=== PATIENT | male | born 1940 | race Caucasian/White ===

== ENCOUNTER → 2020-01-03 15:01 | Outpatient (BNVA) | payer MEDICARE, SELFPAY | PROVIDERS: PCP Internal Medicine; Referring Provider Internal Medicine; Visit Provider Hospitalist | DX: J44.9 Chronic obstructive pulmonary disease, unspecified (principal); J96.10 Chronic respiratory failure, unspecified whether with hypoxia or hypercapnia; Z99.81 Dependence on supplemental oxygen; M54.9 Dorsalgia, unspecified | CPT/HCPCS: 99212 ==

== ENCOUNTER → 2020-07-01 15:45 | Outpatient (BNVA) | payer MEDICARE, SELFPAY | PROVIDERS: PCP Internal Medicine; Visit Provider Hospitalist | DX: R00.1 Bradycardia, unspecified (principal); J96.11 Chronic respiratory failure with hypoxia; J96.12 Chronic respiratory failure with hypercapnia; J47.9 Bronchiectasis, uncomplicated; J41.1 Mucopurulent chronic bronchitis | CPT/HCPCS: 99212 ==

== ENCOUNTER → 2020-12-23 15:31 | Outpatient (BNVA) | payer MEDICARE, SELFPAY | PROVIDERS: PCP Internal Medicine; Visit Provider Hospitalist | DX: J96.11 Chronic respiratory failure with hypoxia (principal); J96.12 Chronic respiratory failure with hypercapnia; J47.9 Bronchiectasis, uncomplicated; J41.1 Mucopurulent chronic bronchitis; J38.7 Other diseases of larynx; R00.1 Bradycardia, unspecified | CPT/HCPCS: 99212 ==

== ENCOUNTER 2021-01-23 13:25 | Outpatient (REF) | payer MEDICARE, SELFPAY ==
[2021-01-23 14:06] LABS: ABG Refer to POC result
[2021-01-23 14:31] LABS: ABG Base Excess 8.9 mmol/L; ABG HCO3 35 mmol/L (22-26); ABG pCO2 54 mmHg (32-45); ABG pCO2 TC 54 mmHg (32-45); ABG pH 7.41 (7.35-7.45); ABG pO2 82 mmHg (83-108); ABG pO2 TC 80 (83-108)
[2021-01-23 14:32] LABS: ABG pH TC 7.42 (7.35-7.45)
--- NOTE | 2021-01-23 17:09 | PFT_ITS ---
Forced vital capacity FEV1, [id number], and MVV are all markedly decreased. Postbronchodilator therapy, there is no significant change. Total lung capacity, normal residual volume is markedly increased. Diffusion capacity is markedly decreased. CONCLUSION: Very severe obstructive airway disorder. There is evidence of air trapping. No response to bronchodilator therapy. Clinical correlation recommended. MD ABRAN Spivey/LOLY / [id number]
== END 2021-01-23 13:26 | disposition home or self-care (01) ==
LOC: HO.RESP 13:25
PROVIDERS: PCP Internal Medicine; Visit Provider Hospitalist
DX: J96.11 Chronic respiratory failure with hypoxia (principal); J96.12 Chronic respiratory failure with hypercapnia
CPT/HCPCS: 82803; 94060; 94727; 94729

== ENCOUNTER 2021-01-30 14:49 | Outpatient (REF) | payer MEDICARE, SELFPAY ==
--- NOTE | ~2021-01-30 | XR_ITS ---
EXAMINATION: XR CHEST CLINICAL INFORMATION: Chronic respiratory failure with hypoxia. COMPARISON: None TECHNIQUE: 2 views of the chest were obtained. FINDINGS: The lungs are well-expanded with patchy opacity seen in left lung base likely pleural thickening or effusion. Minimal blunting of right CP angle with the right middle lobe atelectasis seen. The upper lungs are clear. Heart size and pulmonary vascularity is normal. No gross bony abnormality seen. XR/XR chest 2V IMPRESSION: Left pleural effusion with underlying atelectasis. There is minimal right pleural effusion. Right middle lobe atelectasis. Rest of the lungs are clear.
== END 2021-01-30 14:50 | disposition home or self-care (01) ==
LOC: HO.XRAY 14:49
PROVIDERS: PCP Internal Medicine; Visit Provider Hospitalist
DX: J96.11 Chronic respiratory failure with hypoxia (principal); J96.12 Chronic respiratory failure with hypercapnia; J47.9 Bronchiectasis, uncomplicated; J41.1 Mucopurulent chronic bronchitis; J38.7 Other diseases of larynx; R00.1 Bradycardia, unspecified; G25.81 Restless legs syndrome
CPT/HCPCS: 71046; 99212

== ENCOUNTER 2021-02-23 15:26 | Outpatient (REF) | payer MEDICARE, SELFPAY ==
[2021-02-23 17:04] LABS: Iron 68 mcg/dL (45-160); Percent Iron Saturation 19 % (15-50); Total Iron Binding Capacity 358 mcg/dL (228-428); Unsaturated Iron Binding 290 ug/dL
== END 2021-02-23 15:27 | disposition home or self-care (01) ==
LOC: HO.LAB 15:26
PROVIDERS: PCP Internal Medicine; Visit Provider Hospitalist
DX: J44.9 Chronic obstructive pulmonary disease, unspecified (principal); J96.10 Chronic respiratory failure, unspecified whether with hypoxia or hypercapnia; R00.1 Bradycardia, unspecified
CPT/HCPCS: 36415; 83540; 99212

== ENCOUNTER → 2021-05-01 15:43 | Outpatient (BNVA) | payer MEDICARE, SELFPAY | PROVIDERS: PCP Internal Medicine; Visit Provider Hospitalist | DX: J41.1 Mucopurulent chronic bronchitis (principal); J96.11 Chronic respiratory failure with hypoxia; J96.12 Chronic respiratory failure with hypercapnia; J47.9 Bronchiectasis, uncomplicated; G25.81 Restless legs syndrome | CPT/HCPCS: 99212 ==

== ENCOUNTER 2021-07-21 12:52 | Outpatient (REF) | payer MEDICARE, SELFPAY ==
--- NOTE | ~2021-07-21 | XR_ITS ---
EXAMINATION: XR CHEST CLINICAL INFORMATION: Dyspnea. COMPARISON: 01/30/2021 and report of 01/30/2016 without imaging. TECHNIQUE: 2 views of the chest were obtained. FINDINGS: There is again noted to be postoperative change within the left hemithorax with loss of volume and pleuroparenchymal scarring at the lung base. Small effusion not excluded. No acute parenchymal disease is appreciated within the right lung. There appear to be some regions of interstitial scarring within the right lower lobe. Heart normal size. No evidence of pulmonary edema. No pneumothorax. XR/XR chest 2V IMPRESSION: Similar appearance of the chest compared to previous study of 01/30/2021 with postsurgical change within the left hemithorax.
== END 2021-07-21 12:53 | disposition home or self-care (01) ==
LOC: HO.XRAY 12:52
PROVIDERS: PCP Internal Medicine; Visit Provider Hospitalist
DX: J96.20 Acute and chronic respiratory failure, unspecified whether with hypoxia or hypercapnia (principal); J18.9 Pneumonia, unspecified organism; J44.1 Chronic obstructive pulmonary disease with (acute) exacerbation; B34.9 Viral infection, unspecified
CPT/HCPCS: 71046; 99202

== ENCOUNTER → 2021-09-09 11:39 | Outpatient (BNVA) | payer MEDICARE, SELFPAY | PROVIDERS: PCP Internal Medicine; Visit Provider Hospitalist | DX: J96.11 Chronic respiratory failure with hypoxia (principal); J96.12 Chronic respiratory failure with hypercapnia; J41.1 Mucopurulent chronic bronchitis; J47.9 Bronchiectasis, uncomplicated; R06.02 Shortness of breath; G89.4 Chronic pain syndrome; Z99.81 Dependence on supplemental oxygen | CPT/HCPCS: 99212 ==

== ENCOUNTER 2021-10-20 06:10 | Outpatient (REF) | payer MEDICARE, SELFPAY ==
--- NOTE | ~2021-10-20 | FL_ITS ---
EXAMINATION: XR FLUOROSCOPY WITH IMAGES CLINICAL INFORMATION: Spondylosis without myelopathy or radiculopathy. COMPARISON: None. TECHNIQUE: Fluoroscopy performed by Jazmin James NP. Fluoroscopy time: 0.5 minutes. Cumulative Dose: 7.61 mGy. DAP: 2.07 Gy-cm2. Images: 6. FINDINGS: There are several digital images obtained in the OR revealing needle positioned adjacent to the bilateral L5 pedicles with contrast opacifying the soft tissues. There is mild loss of L3-L4 and L5-S1 disc heights with mild spondylosis. No aggressive lytic process seen. SI joints are symmetrical and normal. FL/FL guidance in treatment room IMPRESSION: Fluoroscopy guidance was provided to referrer for pain management.
== END 2021-10-20 06:11 | disposition home or self-care (01) ==
LOC: HO.RADIR 06:10
PROVIDERS: Visit Provider Anesthesiology
DX: M47.816 Spondylosis without myelopathy or radiculopathy, lumbar region (principal); M51.36 Other intervertebral disc degeneration, lumbar region; M48.061 Spinal stenosis, lumbar region without neurogenic claudication; G89.4 Chronic pain syndrome
CPT/HCPCS: 64493; 64494

== ENCOUNTER → 2021-10-22 08:25 | Outpatient (BNVA) | payer MEDICARE, SELFPAY | PROVIDERS: PCP Internal Medicine; Visit Provider Anesthesiology | DX: M51.36 Other intervertebral disc degeneration, lumbar region (principal); M47.816 Spondylosis without myelopathy or radiculopathy, lumbar region; M48.061 Spinal stenosis, lumbar region without neurogenic claudication; G89.4 Chronic pain syndrome | CPT/HCPCS: Q3014 ==

== ENCOUNTER 2021-10-27 15:14 | Outpatient (REF) | payer MEDICARE, SELFPAY ==
[2021-10-27 15:29] LABS: MANUAL DIFF FLAG NO
[2021-10-27 15:40] LABS: Basophils Percent Auto 0.2 % (0-2); Eosinophils Absolute Auto 0.2 X10*3/uL (0.0-0.4); Eosinophils Percent Auto 2.6 % (0-4); Hematocrit 36.8 % (42.0-52.0); Hemoglobin 11.5 g/dl (14.0-18.0); Imm Gran Abs Auto 0.02 X10*3/uL (0.00-0.03); Imm Gran Pct Auto 0.4 % (0.0-0.4); Lymphocytes Absolute Auto 1.2 X10*3/uL (1.2-4.9); Lymphocytes Percent Auto 21.5 % (20-40); Mean Corpuscular HGB Conc 31.3 g/dl (31.0-36.0); Mean Corpuscular Volume 96.1 fL (80.0-98.0); Mean Platelet Volume 10.2 fL (9.4-12.4); Monocytes Absolute Auto 0.6 X10*3/uL (0.1-1.2); Monocytes Percent Auto 10.2 % (2-11); Neutrophils Absolute Auto 3.7 x10*3/uL (2.0-8.3); Neutrophils Percent Auto 65.1 % (45-73); Platelet Count 146 X10*3/uL (160-400); Red Blood Count 3.83 X10*6/uL (4.60-5.80); Red Cell Distribution Width 13.9 % (11.0-16.0); White Blood Count 5.7 X10*3/uL (4.8-10.8)
[2021-10-27 15:43] LABS: Venous Blood Gas Refer to POC result
[2021-10-27 15:44] LABS: VBG pH 7.33 (7.32-7.43)
[2021-10-27 15:45] LABS: VBG Base Excess 8.2 mmol/L; VBG HCO3 36 mmol/L (22-26); VBG pCO2 67 mmHg; VBG pO2 55 mmHg
[2021-10-27 15:51] LABS: Anion Gap 12 (12-20); Blood Urea Nitrogen 11 mg/dL (9-16); Calcium 8.4 mg/dL (8.4-10.2); Carbon Dioxide 33 mmol/L (22-29); Chloride 98 mmol/L (96-108); Estimated Glomerular Filt Rate > 60; Glucose Random 93 mg/dL (60-115); Potassium 4.5 mmol/L (3.3-5.1); Sodium 138 mmol/L (135-145)
[2021-10-27 16:11] LABS: Erythrocyte Sedimentation Rate 9 MM/HR (0-15)
== END 2021-10-27 15:15 | disposition home or self-care (01) ==
LOC: HO.LAB 15:14
PROVIDERS: PCP Internal Medicine; Visit Provider Hospitalist
DX: J96.11 Chronic respiratory failure with hypoxia (principal); J96.12 Chronic respiratory failure with hypercapnia; J41.1 Mucopurulent chronic bronchitis; G89.4 Chronic pain syndrome
CPT/HCPCS: 36415; 80048; 82803; 85025; 85652; 99212

== ENCOUNTER → 2021-12-24 15:53 | Outpatient (BNVA) | payer MEDICARE, SELFPAY | PROVIDERS: PCP Internal Medicine; Visit Provider Hospitalist | DX: J41.1 Mucopurulent chronic bronchitis (principal); J96.11 Chronic respiratory failure with hypoxia; J96.12 Chronic respiratory failure with hypercapnia; J47.9 Bronchiectasis, uncomplicated; G89.4 Chronic pain syndrome | CPT/HCPCS: 99212 ==

== ENCOUNTER → 2022-01-28 10:24 | Outpatient (BNVA) | payer MEDICARE, SELFPAY | PROVIDERS: PCP Internal Medicine; Visit Provider Anesthesiology | DX: M51.36 Other intervertebral disc degeneration, lumbar region (principal); M47.816 Spondylosis without myelopathy or radiculopathy, lumbar region; M48.061 Spinal stenosis, lumbar region without neurogenic claudication; G89.4 Chronic pain syndrome | CPT/HCPCS: Q3014 ==

== ENCOUNTER 2022-02-23 06:06 | Outpatient (REF) | payer MEDICARE, OTHER, SELFPAY ==
--- NOTE | ~2022-02-23 | FL_ITS ---
EXAMINATION: XR FLUOROSCOPY WITH IMAGES CLINICAL INFORMATION: Spondylosis without myelopathy or radiculopathy. COMPARISON: None. TECHNIQUE: Fluoroscopy Supervised By: Madalyn. Fluoroscopy Time: 0.5 minutes. Cumulative Dose: 8.61 mGy. DAP: 2.34 Gycm2. Images: 6. FINDINGS: 6 digital images obtained in OR reveal a needle positioned adjacent to the L5, L4 and L3 pedicles for pain management. Visualized vertebral heights and and disc heights are normal. The SI joints are symmetrical and normal. FL/FL guidance in treatment room IMPRESSION: Fluoroscopy guidance was provided to referrer for pain management.
== END 2022-02-23 06:07 | disposition home or self-care (01) ==
LOC: CF 06:06
PROVIDERS: Visit Provider Anesthesiology
DX: M47.816 Spondylosis without myelopathy or radiculopathy, lumbar region (principal); M51.36 Other intervertebral disc degeneration, lumbar region; M48.061 Spinal stenosis, lumbar region without neurogenic claudication; G89.4 Chronic pain syndrome
CPT/HCPCS: 64493; 64494; J1100; J2795; J3301

== ENCOUNTER → 2022-03-29 11:40 | Outpatient (BNVA) | payer MEDICARE, SELFPAY | PROVIDERS: PCP Internal Medicine; Visit Provider Anesthesiology | DX: M51.36 Other intervertebral disc degeneration, lumbar region (principal); M47.816 Spondylosis without myelopathy or radiculopathy, lumbar region; M48.061 Spinal stenosis, lumbar region without neurogenic claudication; G89.4 Chronic pain syndrome | CPT/HCPCS: 99212 ==

== ENCOUNTER → 2022-04-29 15:47 | Outpatient (BNVA) | payer MEDICARE, SELFPAY | PROVIDERS: PCP Internal Medicine; Visit Provider Hospitalist | DX: J41.1 Mucopurulent chronic bronchitis (principal); J96.11 Chronic respiratory failure with hypoxia; J96.12 Chronic respiratory failure with hypercapnia; J47.9 Bronchiectasis, uncomplicated; R06.02 Shortness of breath; G89.4 Chronic pain syndrome | CPT/HCPCS: 99212 ==

== ENCOUNTER 2022-07-16 07:16 | Day surgery (SDC) | payer MEDICARE, SELFPAY ==
--- NOTE | 2022-07-08 | ECG_ITS ---
Test Reason : preop Blood Pressure : / mmHG Vent. Rate : 057 BPM Atrial Rate : 057 BPM P-R Int : 162 ms QRS Dur : 092 ms QT Int : 416 ms P-R-T Axes : 066 -14 037 degrees QTc Int : 404 ms Sinus bradycardia Low voltage QRS Borderline ECG No previous ECGs available Referred By: Yuridia Sequeira Electronically Signed By:Anthony Vergara
[2022-07-08 13:11] VITALS: BP 118/56; PULSE 58; RESP 20; O2SAT 98; BMI 22.7
--- NOTE | 2022-07-08 13:36 | HO.ANESPROP2 ---
Documented by User: Yuridia Sequeira NP 07/09/22 14:29 HPI - Anesthesia Eval Consult details Narrative: 81yo M for Spinal Cord Stimulation Trial Follows Pulmo, Dr Diaz - last seen 04/2022. COPD, chronic respiratory failure, supplemental O2 @ 2-3L, chronic productive cough. Per pulmo, ok to proceed, but no General. Follows cardiology, Dr Leigh - last seen 10/2021. Dyspnea (false positive stress and cath with mild luminal irregs), palps/PVC (stable on metoprolol), edema (improved with lasix, likely r/t venous insufficiency), thoracic aortic ectasia (no change from previous echo). Case reviewed with Dr Pino. [facility] Active Problems Active Problems: All Active Problems (Updated 07/08/22 @ 13:21 by Mickie Fernández RN) Acute and chronic respiratory failure (Acute) COPD exacerbation (Acute) Viral syndrome (Acute) Pneumonia (Acute) Chronic pain syndrome (Acute) Spinal stenosis of lumbar region without neurogenic claudication (Acute) Spondylosis of lumbar spine (Acute) Disc degeneration, lumbar (Acute) Restless leg syndrome (Acute) Dyspnea (Acute) Laryngeal disorder (Acute) Bradycardia (Acute) Back pain (Acute) Chronic respiratory failure (Acute) Bronchiectasis (Acute) COPD (chronic obstructive pulmonary disease) (Acute) Past Medical History Medical History Anxiety Arthritis Asymptomatic superficial varicose vein of lower extremity Back pain Bleeding hemorrhoids Bradycardia Bronchiectasis Chronic pain syndrome Chronic respiratory failure COPD (chronic obstructive pulmonary disease) COPD exacerbation Cough Disc degeneration, lumbar Dyspnea Hx of glaucoma Hx of small bowel obstruction IBS (irritable bowel syndrome) Laryngeal disorder Oxygen dependent Pneumonia Restless leg syndrome Sleep apnea 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 Viral syndrome Family History Family history of problems with anesthesia: No Surgical History Surgical History H/O colonoscopy History of cardiac cath History of lobectomy of lung Hx of appendectomy Hx of bone marrow donation Hx of cataract extraction Hx of cholecystectomy Hx of hemorrhoidectomy Hx of hernia repair Hx of knee surgery Hx of neck surgery History of Problems with Anesthesia: No Social History Social History Are you a primary childcare center administrator to a significant other at home: No Do you presently have visiting nurse or other home services: No Patient Tobacco Use Status: Former Tobacco user Quit Date: 1998 Use of substances other than those prescribed or required for medical reasons: No Have you been hit, kicked, punched, or otherwise hurt by someone within the past year? If so, by whom?: No Are you DNR?: No Advance Directives: Yes Advance Directives Information Provided: Yes Advance Directives on File: Yes Advance Directives Date on File: 07/28/21 Recently lost weight without trying: No Eating poorly because of decreased appetite: No Nutrition Risks: No Nutritional Risk Poor oral hygiene: Yes (upper partial denture) Meds Allergies Allergy/AdvReac Type Severity Reaction Status Date / Time No Known Allergies Allergy Verified 04/29/22 15:56 Home Medications Medication Instructions Recorded Confirmed Last Taken Type diclofenac sodium 1 % topical gel g topical DAILY 01/03/20 03/29/22 Unknown History flu vacc [id number](65yr up)-PF 240 ml IM 01/03/20 03/29/22 Unknown History mcg/0.7 mL intramuscular syringe gabapentin 300 mg capsule 300 mg PO BID 01/03/20 07/08/22 Unknown History ibandronate 150 mg tablet 150 mg PO ONCE 01/03/20 07/07/22 Unknown History ropinirole 2 mg tablet 1 mg PO BID 12/23/20 07/07/22 Unknown History pantoprazole 40 mg tablet,delayed 40 mg PO QAM 09/09/21 07/07/22 Unknown History release trazodone 100 mg tablet 100 mg PO BEDTIME 09/09/21 07/07/22 Unknown History albuterol sulfate 2.5 mg/3 mL 2.5 mg inhalation BID for wheezing 10/27/21 07/07/22 Unknown History (0.083 %) solution for nebulization metoprolol tartrate 25 mg tablet 25 mg PO DAILY 10/27/21 07/07/22 Unknown History furosemide 20 mg tablet 20 mg PO DAILY 12/24/21 07/07/22 Unknown History Oxygen Home Use 04/29/22 Unknown History nebulizers 04/29/22 Unknown History gabapentin 300 mg tablet 900 mg PO BEDTIME 07/07/22 07/07/22 Unknown History ipratropium bromide 42 mcg (0.06 2 spray intranasal TID PRN Sinus 07/07/22 07/07/22 Unknown History %) nasal spray Symptoms melatonin 12 mg tablet 12 mg PO BEDTIME 07/07/22 07/07/22 Unknown History acetaminophen 500 mg tablet 1,000 mg PO BID PRN Back Pain 07/08/22 07/08/22 Unknown History (Acetaminophen Extra Strength) Exam Exam Date and Time: July 08, 2022 1336 Height,Weight and Vital Signs: Height 5 ft 3 in Weight 58.06 kg Last Vital Signs Pulse 58 07/08/22 13:11 Resp 20 07/08/22 13:11 BP 118/56 L 07/08/22 13:11 Pulse Ox 98 07/08/22 13:11 O2 Del Method Nasal Cannula 07/08/22 13:11 O2 Flow Rate 2 07/08/22 13:11 Pertinent Lab Results Pertinent Lab Results: Lab Results 07/08/22 07/08/22 Range/Units 14:25 14:25 WBC 6.0 (4.8-10.8) X10*3/uL RBC 4.19 L (4.60-5.80) X10*6/uL Hgb 13.0 L (14.0-18.0) g/dl Hct 41.3 L (42.0-52.0) % MCV 98.6 H (80.0-98.0) fL MCH 31.0 (27.0-33.0) pg MCHC 31.5 (31.0-36.0) g/dl RDW 12.5 (11.0-16.0) % Plt Count 179 (160-400) X10*3/uL MPV 10.0 (9.4-12.4) fL Absolute Nucleated RBC 0.000 (0.0-0.012) X10*3/uL Nucleated RBC % (auto) 0.0 (0.0-0.2) /100WBC Sodium 143 (135-145) mmol/L Potassium 4.2 (3.3-5.1) mmol/L Chloride 98 (96-108) mmol/L Carbon Dioxide 38 H (22-29) mmol/L Anion Gap 11 L (12-20) BUN 14 (9-16) mg/dL Creatinine 0.66 (0.5-1.4) mg/dL Estim Creat Clear Calc 70.6 Estimated GFR > 60 Random Glucose 87 (60-115) mg/dL Calcium 9.1 D (8.4-10.2) mg/dL Narrative Narrative: EKG 06/2022 Vent. Rate : 057 BPM ? ? Atrial Rate : 057 BPM ?? P-R Int : 162 ms? QRS Dur : 092 ms ? ? QT Int : 416 ms ? ? ? P-R-T Axes : 066 -14 037 degrees ?? QTc Int : 404 ms ? Sinus bradycardia Low voltage QRS Borderline ECG No previous ECGs available ECHO 11/2021 1. Nml LV cavity size, wall thickness. Nml regional wall motion with low nml systolic function and EF 50-55% 2. Nml RV size and systolic function 3. No hemodynamically significant valve disase 4. Borderline pulmo htn 5. Upper normal to mildly dilated ascending aorta C/W prior echo from 10/2020, findings unchanged Airway Neck ROM: Limited (Cervical fusion) Partial: Upper Loose/Missing/Broken Teeth: Yes (Lower molars missing) Heart: RRR Lungs: clear but diminished throughout Assessment and Plan Assessment Anesthesia Assessment: Anesthesia Plan Discussed and PAT Visit Final Anesthetic Review Family History of Problems with Anesthesia: No History of Problems with Anesthesia: No Documented by User: Denise Gusman MD 07/16/22 08:36 [facility] Active Problems Active Problems: All Active Problems (Updated 07/16/22 @ 08:00 by Denise Gusman MD) H/o [id number] respiratory failure (Acute) COPD exacerbation (Acute) Viral syndrome (Acute) Pneumonia (Acute) Chronic pain syndrome (Acute) Spinal stenosis of lumbar region without neurogenic claudication (Acute) Spondylosis of lumbar spine (Acute) Disc degeneration, lumbar (Acute) Restless leg syndrome (Acute) Dyspnea (Acute) Laryngeal disorder (Acute) Bradycardia (Acute) Back pain (Acute) Chronic respiratory failure (Acute) Bronchiectasis (Acute) COPD (chronic obstructive pulmonary disease) (Acute) Past Medical History Medical History Anxiety Arthritis Asymptomatic superficial varicose vein of lower extremity Back pain Bleeding hemorrhoids Bradycardia Bronchiectasis Chronic pain syndrome Chronic respiratory failure COPD (chronic obstructive pulmonary disease) COPD exacerbation Cough Disc degeneration, lumbar Dyspnea Hx of glaucoma Hx of small bowel obstruction IBS (irritable bowel syndrome) Laryngeal disorder Oxygen dependent Pneumonia Restless leg syndrome Sleep apnea 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 Viral syndrome Surgical History Surgical History H/O colonoscopy History of cardiac cath History of lobectomy of lung Hx of appendectomy Hx of bone marrow donation Hx of cataract extraction Hx of cholecystectomy Hx of hemorrhoidectomy Hx of hernia repair Hx of knee surgery Hx of neck surgery Social History Social History Are you a primary childcare center administrator to a significant other at home: No Do you presently have visiting nurse or other home services: No Patient Tobacco Use Status: Former Tobacco user Quit Date: 1998 Use of substances other than those prescribed or required for medical reasons: No Have you been hit, kicked, punched, or otherwise hurt by someone within the past year? If so, by whom?: No Are you DNR?: No Advance Directives: Yes Advance Directives Information Provided: Yes Advance Directives on File: Yes Advance Directives Date on File: 07/28/21 Recently lost weight without trying: No Eating poorly because of decreased appetite: No Nutrition Risks: No Nutritional Risk Poor oral hygiene: Yes (upper partial denture) Meds Allergies Allergy/AdvReac Type Severity Reaction Status Date / Time No Known Allergies Allergy Verified 04/29/22 15:56 Home Medications Medication Instructions Recorded Confirmed Last Taken Type diclofenac sodium 1 % topical gel g topical DAILY 01/03/20 03/29/22 Unknown History flu vacc [id number](65yr up)-PF 240 ml IM 01/03/20 03/29/22 Unknown History mcg/0.7 mL intramuscular syringe gabapentin 300 mg capsule 300 mg PO BID 01/03/20 07/08/22 Unknown History ibandronate 150 mg tablet 150 mg PO ONCE 01/03/20 07/07/22 Unknown History ropinirole 2 mg tablet 1 mg PO BID 12/23/20 07/07/22 Unknown History pantoprazole 40 mg tablet,delayed 40 mg PO QAM 09/09/21 07/07/22 Unknown History release trazodone 100 mg tablet 100 mg PO BEDTIME 09/09/21 07/07/22 Unknown History albuterol sulfate 2.5 mg/3 mL 2.5 mg inhalation BID for wheezing 10/27/21 07/07/22 Unknown History (0.083 %) solution for nebulization metoprolol tartrate 25 mg tablet 25 mg PO DAILY 10/27/21 07/07/22 Unknown History furosemide 20 mg tablet 20 mg PO DAILY 12/24/21 07/07/22 Unknown History Oxygen Home Use 04/29/22 Unknown History nebulizers 04/29/22 Unknown History gabapentin 300 mg tablet 900 mg PO BEDTIME 07/07/22 07/07/22 Unknown History ipratropium bromide 42 mcg (0.06 2 spray intranasal TID PRN Sinus 07/07/22 07/07/22 Unknown History %) nasal spray Symptoms melatonin 12 mg tablet 12 mg PO BEDTIME 07/07/22 07/07/22 Unknown History acetaminophen 500 mg tablet 1,000 mg PO BID PRN Back Pain 07/08/22 07/08/22 Unknown History (Acetaminophen Extra Strength) Exam Height,Weight and Vital Signs: Height 5 ft 3 in Weight 58.06 kg Last Vital Signs Pulse 58 07/08/22 13:11 Resp 20 07/08/22 13:11 BP 118/56 L 07/08/22 13:11 Pulse Ox 98 07/08/22 13:11 O2 Del Method Nasal Cannula 07/08/22 13:11 O2 Flow Rate 2 07/08/22 13:11 Vital Signs Temp Pulse Resp BP Pulse Ox O2 Del Method O2 Flow Rate 07/16/22 08:07 79 18 07/16/22 08:13 97.6 F 71 18 153/68 H 98 Nasal Cannula 2 Pertinent Lab Results Pertinent Lab Results: Lab Results 07/08/22 07/08/22 Range/Units 14:25 14:25 WBC 6.0 (4.8-10.8) X10*3/uL RBC 4.19 L (4.60-5.80) X10*6/uL Hgb 13.0 L (14.0-18.0) g/dl Hct 41.3 L (42.0-52.0) % MCV 98.6 H (80.0-98.0) fL MCH 31.0 (27.0-33.0) pg MCHC 31.5 (31.0-36.0) g/dl RDW 12.5 (11.0-16.0) % Plt Count 179 (160-400) X10*3/uL MPV 10.0 (9.4-12.4) fL Absolute Nucleated RBC 0.000 (0.0-0.012) X10*3/uL Nucleated RBC % (auto) 0.0 (0.0-0.2) /100WBC Sodium 143 (135-145) mmol/L Potassium 4.2 (3.3-5.1) mmol/L Chloride 98 (96-108) mmol/L Carbon Dioxide 38 H (22-29) mmol/L Anion Gap 11 L (12-20) BUN 14 (9-16) mg/dL Creatinine 0.66 (0.5-1.4) mg/dL Estim Creat Clear Calc 70.6 Estimated GFR > 60 Random Glucose 87 (60-115) mg/dL Calcium 9.1 D (8.4-10.2) mg/dL Airway Mallampati Class: III TM Dist: >3cm Assessment and Plan Final Anesthetic Review NPO: Yes ASA Class: III Final Preanesthetic Review: No Changes in Pt Med Stat, Meds/Allgs Chart Reviewed, Consent Obtained/Reviewed and Anes Risks/Benef Reviewed Patient Risk: Intermediate Procedure Risk: Low Assessment/Block/Sedation in SS: Assess/Block/Sedation-SS Anesthetic Plan Anesthetic Plan: MAC: Disposition: Standard PACU
[2022-07-08 15:28] LABS: Hematocrit 41.3 % (42.0-52.0); Mean Corpuscular HGB Conc 31.5 g/dl (31.0-36.0); Mean Corpuscular Volume 98.6 fL (80.0-98.0); Platelet Count 179 X10*3/uL (160-400); Red Blood Count 4.19 X10*6/uL (4.60-5.80); Red Cell Distribution Width 12.5 % (11.0-16.0)
[2022-07-08 15:53] LABS: Anion Gap 11 (12-20); Blood Urea Nitrogen 14 mg/dL (9-16); Calcium 9.1 mg/dL (8.4-10.2); Carbon Dioxide 38 mmol/L (22-29); Chloride 98 mmol/L (96-108); Creatinine Clr Calc Pharmacy 70.6; Estimated Glomerular Filt Rate > 60; Glucose Random 87 mg/dL (60-115); Potassium 4.2 mmol/L (3.3-5.1); Sodium 143 mmol/L (135-145)
--- NOTE | ~2022-07-16 | FL_ITS ---
EXAMINATION: XR FLUOROSCOPY WITH IMAGES CLINICAL INFORMATION: Spinal stimulator trial COMPARISON: Fluoroscopic spot views 02/23/2022, chest radiographs 07/21/2021 TECHNIQUE: Fluoroscopy Supervised By: Dr. Michael Yancey. Fluoroscopy Time: 1.9 minutes. Cumulative Dose: 23.2 mGy. DAP: 6.18 Gycm2. Images: 3. FINDINGS: There are 2 spinal stimulator electrodes seen ascending the posterior spinal canal. The electrode tips are at level of mid thoracic spine. There is no visible kinking or defect of the leads. Atherosclerotic calcifications descending thoracic aorta and scarring left hemithorax again noted similar to the chest radiographs. FL/FL guidance in OR IMPRESSION: Fluoroscopy for pain management procedure.
--- NOTE | 2022-07-16 07:25 | MHC.SHP ---
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,pain Details of Present Illness: as above Relevant Family History (Specify if Yes): No Relevant Social History: None Present Medications: see Short Stay Collaborative assessment Medical History: No relevant PMH History of Previous Operations: No relevant previous surgery Allergies: Allergies Allergy/AdvReac Type Severity Reaction Status Date / Time No Known Allergies Allergy Verified 04/29/22 15:56 Review of Systems Sugical H&P ROS: Negative: Constitution, Cardiovascular, Respiratory, Neurological, Psychiatric, Hem-Onc, Allergic/Immunologic, Gastrointestinal, Genitourinary, Musculoskeletal, Integumentary, Endocrine and Eyes/Ears/Nose/Throat Exam Surgical H&P Exam: Normal: HEENT, Normal: Heart, Normal: Lungs, Normal: Extremities, Normal: Abdomen, Normal: Skin and Normal: Neurological Plan Diagnosis/Plan: Unchanged I have reviewed the history and physical and performed a pertinent physical examination on my patient. No changes have occurred unless specified. Time Spent With Patient Time: Total time managing care of this patient today ____ minutes.
[2022-07-16] MEDS: Albuterol Sulfate (0.083%) 2.5 MG/3 ML VIAL.NEB INHALE (08:06)
--- NOTE | 2022-07-16 08:06 | W.PM.OPN ---
Operative Note Operative Note Date of Service: 07/16/22 Narrative: trial of Nevro spinal cord stimulator.? Paul is very pleasant Japanese speaking 81 y.o. male ? who is here for the trial of spinal cord stimulator Nevro for the treatment of Spondylosis of lumbar spine with radiculopathy and pain related to spinal stenosis. Preoperatively patient received??..Cefasolinn 2 g IV...IV intravenously approximately? 10 minute before the procedure.? After obtaining informed consent patient was brought to the operating room, she was positioned?? Prone on the operating table, [employer] monitors were applied and patient was? sedated. ? Time-out was performed delineating correct site, side, the nature of the procedure, patient's allergy, preoperative antibiotic if needed.? All operating room staff was participating in OR time-out procedure. Patient's entire back was prepped with ChloraPrep twice and draped with full body fenestrated drape.? Sterilely draped C-arm was brought over operating field and sqare picture of T11-T12, L1, L2 vertebrae as were demonstrated on the screen.?The decision was made to concentrate the attention on L1-L2 interlaminar space.? The location of the projection of the right pedicle center of the L3 vertebra was found on the skin using C-arm.? This location was injected with mixture of lidocaine 2% and? ropivacaine 0.5% 5 cc.? After that 11 blade was used to make a fidel on the skin.? 10 cm 14 gauge introducer epidural needle was inserted through the fidel and advanced to? L1-L2 epidural interspace.? The advancement of the needle was performed on anterior posterior and lateral views.?ADE to air was used to detect epidural space. ? . the needle was advancing to were the [id number] interspace on anterior posterior and lateral views.Guitar wire and loss of resistance technique were used to locate epidural space.? When guitar wire was spread in the epidural fashion, epidural lead was inserted through the needle and it was advanced to top T8 position PRACTICALLY at THE MIDLINE in the posterior epidural space.? After that location of the projection of the LEFT pedicle center of the? L3 vertebra was found on the skin using C-arm.? This location was injected with mixture of lidocaine 2% and ropivacaine 0.5% 5 cc.? After that 11 blade was used to make a fidel on the skin.? 10 cm 14 gauge? introducer epidural needle was inserted through the fidel and advanced to L1-L2 epidural interspace.? The advancement of the needle was done on AP and lateral views, ADE to air was used to detect epidural space, guitar wire was advanced to the needle and was spreading in epidural fashion and after that epidural stimulation lead was inserted through the needle and was advancing to the posterior epidural space to the level of T9 upper third of the vertebra with the position slightly left to midline? right inserted electrode lead. The position of the leads verified on anterior posterior and lateral views,The stilets and epidural needle were withdrawn and care was taken not to dislodge the epidural leads. The anchoring devices were dislodged on the leads and advanced to the level of the skin.? The anchoring device was sutured with two 0-0 silk sutures for each anchor? to the skin of the patient.? The screws were tighten on the anchoring devices until 3 clicks were heard. The leads were connected to testing device.? Bacitracin ointment was applied to the entrance point of the needle entrance on the right.? Sterile dressing applied.? The lead was connected to stimulating device which was taped to the skin. The impedance was checked and it was appropriate. The patient tolerated procedure well.?? He was taken outside of the operating room to recovery room where she recovered uneventfully. Breast [place] Node Biopsy Substrate(s) used for sentinel node biopsy in the neoadjuvant setting: Radiotracer and Clips General Surg. - Synoptic Notes Breast [place] Node Biopsy Substrate(s) used for sentinel node biopsy in the neoadjuvant setting: Radiotracer and Clips
[2022-07-16 08:07] VITALS: PULSE 79; RESP 18; O2SAT 100
[2022-07-16 08:13] VITALS: BP 153/68; PULSE 71; RESP 18; TEMP 36.4; O2SAT 98
[2022-07-16 09:43] VITALS: BP 124/60; PULSE 77; RESP 16; TEMP 36.6; O2SAT 99
--- NOTE | 2022-07-16 09:52 | P.BOP_ITS ---
Brief Operative Note Date of Service: 07/16/22 Pre-op diagnosis: spondylosis lumbar spine with radiculopathy, disc degeneration lumbar, spinal stenosis, chronic pain syndrome. Post-op diagnosis: same Procedure: trial of Nevro SCS. Implants: none permanent Surgeon: Michael Yancey MD Anesthesia: MAC and local Was an Freight Coordinator used for this Procedure?: No Estimated blood loss (mL): 4 Condition: stable Disposition: PACU
[2022-07-16 09:58] VITALS: BP 136/59; PULSE 67; RESP 18; TEMP 36.4; O2SAT 95
== END 2022-07-16 11:07 | disposition home or self-care (01) ==
PROVIDERS: Nurse Practitioner; PCP Internal Medicine; Visit Provider Anesthesiology
PROC: (CPT 63650; principal; 2022-07-16 08:20)
DX: M47.26 Other spondylosis with radiculopathy, lumbar region (principal); M48.061 Spinal stenosis, lumbar region without neurogenic claudication; G89.4 Chronic pain syndrome; M51.36 Other intervertebral disc degeneration, lumbar region; J44.9 Chronic obstructive pulmonary disease, unspecified; J96.10 Chronic respiratory failure, unspecified whether with hypoxia or hypercapnia; R00.1 Bradycardia, unspecified; B34.9 Viral infection, unspecified; Z87.891 Personal history of nicotine dependence; Z79.51 Long term (current) use of inhaled steroids; Z79.899 Other long term (current) drug therapy
CPT/HCPCS: 63650 ×2; 36415; 80048; 85027; 93005; 94640; C1713; C1897; J0690; J2250; J2795; J3010

== ENCOUNTER → 2022-07-23 14:31 | Outpatient (BNVA) | payer MEDICARE, SELFPAY | PROVIDERS: PCP Internal Medicine; Visit Provider Nurse Practitioner Family | DX: M48.061 Spinal stenosis, lumbar region without neurogenic claudication (principal); M47.816 Spondylosis without myelopathy or radiculopathy, lumbar region; M51.36 Other intervertebral disc degeneration, lumbar region; G89.4 Chronic pain syndrome | CPT/HCPCS: 99212 ==

== ENCOUNTER 2022-08-05 15:33 | Outpatient (REF) | payer MEDICARE, SELFPAY ==
--- NOTE | ~2022-08-05 | XR_ITS ---
EXAMINATION: XR abdomen 3V, XR chest 2V CLINICAL INFORMATION: Abdominal pain. COMPARISON: 07/21/2021 TECHNIQUE: PA and lateral views of the chest. 2 views of the abdomen. FINDINGS: Chest: The lungs are well expanded. Small left pleural effusion. Increased streaky right basilar opacity. No edema. No pneumothorax. The cardiomediastinal silhouette is unchanged, with a calcified aorta. ABDOMEN: Nonobstructive bowel gas pattern. No dilated loops of bowel. Scattered gas and stool in the colon. No free air on the upright view. No air-fluid levels. Degenerative changes in the spine. XR/XR chest 2V IMPRESSION: 1. Small left pleural effusion. Increased streaky right basilar opacity favors atelectasis. 2. Nonobstructive bowel gas pattern.
--- NOTE | ~2022-08-05 | XR_ITS ---
EXAMINATION: XR abdomen 3V, XR chest 2V CLINICAL INFORMATION: Abdominal pain. COMPARISON: 07/21/2021 TECHNIQUE: PA and lateral views of the chest. 2 views of the abdomen. FINDINGS: Chest: The lungs are well expanded. Small left pleural effusion. Increased streaky right basilar opacity. No edema. No pneumothorax. The cardiomediastinal silhouette is unchanged, with a calcified aorta. ABDOMEN: Nonobstructive bowel gas pattern. No dilated loops of bowel. Scattered gas and stool in the colon. No free air on the upright view. No air-fluid levels. Degenerative changes in the spine. XR/XR abdomen 3V IMPRESSION: 1. Small left pleural effusion. Increased streaky right basilar opacity favors atelectasis. 2. Nonobstructive bowel gas pattern.
== END 2022-08-05 15:34 | disposition home or self-care (01) ==
LOC: HO.XRAY 15:33
PROVIDERS: PCP Internal Medicine; Visit Provider Hospitalist
DX: J41.1 Mucopurulent chronic bronchitis (principal); J96.11 Chronic respiratory failure with hypoxia; J96.12 Chronic respiratory failure with hypercapnia; J47.9 Bronchiectasis, uncomplicated; R10.9 Unspecified abdominal pain; Z87.891 Personal history of nicotine dependence
CPT/HCPCS: 71046; 74021; 99212

== ENCOUNTER 2022-08-06 10:40 | Day surgery (SDC) | payer MEDICARE, SELFPAY ==
--- NOTE | 2022-08-05 09:21 | P.CONAN_ITS ---
Documented by User: Yuridia Sequeira NP 08/05/22 09:23 HPI - Anesthesia Eval Consult details Narrative: 81yo M for Spinal Cord Stimulation Implant s/p trial 06/2022 with MAC Follows Pulrachel, Dr Diaz - last seen 04/2022. COPD, chronic respiratory failure, supplemental O2 @ 2-3L, chronic productive cough. Per pulmo, ok to proceed, but no General. Follows cardiology, Dr Leigh - last seen 10/2021. Dyspnea (false positive stress and cath with mild luminal irregs), palps/PVC (stable on metoprolol), edema (improved with lasix, likely r/t venous insufficiency), thoracic aortic ectasia (no change from previous echo). Case reviewed with Dr Pino. [facility] Active Problems Active Problems: All Active Problems (Updated 07/08/22 @ 13:47 by Yuridia Sequeira NP) Acute and chronic respiratory failure (Acute) COPD exacerbation (Acute) Viral syndrome (Acute) Pneumonia (Acute) Chronic pain syndrome (Acute) Spinal stenosis of lumbar region without neurogenic claudication (Acute) Spondylosis of lumbar spine (Acute) Disc degeneration, lumbar (Acute) Restless leg syndrome (Acute) Dyspnea (Acute) Laryngeal disorder (Acute) Bradycardia (Acute) Back pain (Acute) Chronic respiratory failure (Acute) Bronchiectasis (Acute) COPD (chronic obstructive pulmonary disease) (Acute) Past Medical History Medical History Abdominal pain Anxiety Arthritis Asymptomatic superficial varicose vein of lower extremity Back pain Bleeding hemorrhoids Bradycardia Bronchiectasis Chronic pain syndrome Chronic respiratory failure COPD (chronic obstructive pulmonary disease) COPD exacerbation Cough Disc degeneration, lumbar Dyspnea Hx of glaucoma Hx of small bowel obstruction IBS (irritable bowel syndrome) Laryngeal disorder Oxygen dependent Pneumonia Restless leg syndrome Sleep apnea 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 Viral syndrome Family History Family history of problems with anesthesia: No Surgical History Surgical History H/O colonoscopy History of back surgery History of cardiac cath History of lobectomy of lung Hx of appendectomy Hx of bone marrow donation Hx of cataract extraction Hx of cholecystectomy Hx of hemorrhoidectomy Hx of hernia repair Hx of knee surgery Hx of neck surgery History of Problems with Anesthesia: No Social History Social History Are you a primary director of health care marketing to a significant other at home: No Do you presently have visiting nurse or other home services: No Patient Tobacco Use Status: Former Tobacco user Quit Date: 1998 Use of substances other than those prescribed or required for medical reasons: No Are you DNR?: No Advance Directives: No Advance Directives Information Provided: Yes Advance Directives Date on File: 07/28/21 Meds Allergies Allergy/AdvReac Type Severity Reaction Status Date / Time No Known Allergies Allergy Verified 08/06/22 11:09 Home Medications Medication Instructions Recorded Confirmed Last Taken Type diclofenac sodium 1 % topical gel g topical DAILY 01/03/20 03/29/22 Unknown History flu vacc [id number](65yr up)-PF 240 ml IM 01/03/20 03/29/22 Unknown History mcg/0.7 mL intramuscular syringe gabapentin 300 mg capsule 300 mg PO BID 01/03/20 07/08/22 Unknown History (Neurontin) ibandronate 150 mg tablet (Boniva) 150 mg PO ONCE 01/03/20 07/07/22 Unknown History ropinirole 2 mg tablet 1 mg PO BID 12/23/20 07/07/22 Unknown History pantoprazole 40 mg tablet,delayed 40 mg PO QAM 09/09/21 07/07/22 08/06/22 08:30 History release (Protonix) trazodone 100 mg tablet 100 mg PO BEDTIME 09/09/21 07/07/22 Unknown History albuterol sulfate 2.5 mg/3 mL 2.5 mg inhalation BID for wheezing 10/27/21 07/07/22 08/06/22 08:30 History (0.083 %) solution for nebulization metoprolol tartrate 25 mg tablet 25 mg PO DAILY 10/27/21 07/07/22 08/06/22 08:30 History furosemide 20 mg tablet (Lasix) 20 mg PO DAILY 12/24/21 07/07/22 Unknown History Oxygen Home Use 04/29/22 Unknown History nebulizers 04/29/22 Unknown History gabapentin 300 mg tablet 900 mg PO BEDTIME 07/07/22 07/07/22 Unknown History ipratropium bromide 42 mcg (0.06 2 spray intranasal TID PRN Sinus 07/07/22 07/07/22 Unknown History %) nasal spray Symptoms melatonin 12 mg tablet 12 mg PO BEDTIME 07/07/22 07/07/22 Unknown History acetaminophen 500 mg tablet 1,000 mg PO BID PRN Back Pain 07/08/22 07/08/22 Unknown History (Acetaminophen Extra Strength) albuterol sulfate 90 mcg/actuation 2 puff inhalation Q4H PRN for 08/06/22 Unknown History aerosol inhaler (ProAir HFA) wheezing azithromycin 250 mg tablet 250 mg PO 3XW 08/06/22 Unknown History (Zithromax) montelukast 10 mg tablet 10 mg PO DAILY 08/06/22 Unknown History (Singulair) Exam Exam Date and Time: August 05, [id number] Pertinent Lab Results Pertinent Lab Results: Lab Results 07/08/22 07/08/22 Range/Units 14:25 14:25 WBC 6.0 (4.8-10.8) X10*3/uL RBC 4.19 L (4.60-5.80) X10*6/uL Hgb 13.0 L (14.0-18.0) g/dl Hct 41.3 L (42.0-52.0) % MCV 98.6 H (80.0-98.0) fL MCH 31.0 (27.0-33.0) pg MCHC 31.5 (31.0-36.0) g/dl RDW 12.5 (11.0-16.0) % Plt Count 179 (160-400) X10*3/uL MPV 10.0 (9.4-12.4) fL Absolute Nucleated RBC 0.000 (0.0-0.012) X10*3/uL Nucleated RBC % (auto) 0.0 (0.0-0.2) /100WBC Sodium 143 (135-145) mmol/L Potassium 4.2 (3.3-5.1) mmol/L Chloride 98 (96-108) mmol/L Carbon Dioxide 38 H (22-29) mmol/L Anion Gap 11 L (12-20) BUN 14 (9-16) mg/dL Creatinine 0.66 (0.5-1.4) mg/dL Estim Creat Clear Calc 70.6 Estimated GFR > 60 Random Glucose 87 (60-115) mg/dL Calcium 9.1 D (8.4-10.2) mg/dL Narrative Narrative: EKG 06/2022 Vent. Rate : 057 BPM ? ? Atrial Rate : 057 BPM ?? P-R Int : 162 ms? QRS Dur : 092 ms ? ? QT Int : 416 ms ? ? ? P-R-T Axes : 066 -14 037 degrees ?? QTc Int : 404 ms ? Sinus bradycardia Low voltage QRS Borderline ECG No previous ECGs available ECHO 11/2021 1. Nml LV cavity size, wall thickness. Nml regional wall motion with low nml systolic function and EF 50-55% 2. Nml RV size and systolic function 3. No hemodynamically significant valve disase 4. Borderline pulmo htn 5. Upper normal to mildly dilated ascending aorta C/W prior echo from 10/2020, findings unchanged Airway Mallampati Class: III TM Dist: >3cm Neck ROM: Limited (Cervical fusion) Partial: Upper Loose/Missing/Broken Teeth: Yes (Lower molars missing) Heart: RRR Lungs: clear but diminished throughout Assessment and Plan Assessment Anesthesia Assessment: Chart Reviewed Final Anesthetic Review Family History of Problems with Anesthesia: No History of Problems with Anesthesia: No Documented by User: Denise Gusman MD 08/06/22 12:18 HPI - Anesthesia Eval Consult details Narrative: 81yo M for Spinal Cord Stimulation Implant s/p trial 06/[address] Joe Alegre - last seen 04/2022. COPD, chronic respiratory failure, supplemental O2 @ 2-3L, chronic productive cough. Per pulrachel, ok to proceed, but no General. Follows cardiology, Dr Leigh - last seen 10/2021. Dyspnea (false positive stre ss and cath with mild luminal irregs), palps/PVC (stable on metoprolol), edema (improved with lasix, likely r/t venous insufficiency), thoracic aortic ectasia (no change from previous echo). Case reviewed with Dr Pino. Dr Yancey requesting GA. Patient did well with MAC for trial. Spoke with Dr Diaz who saw patient yesterday. Patient is stable in terms of pulmonary status and if GA necessary, does not think it would increase risk to patient. CXR done. No acute or worrisome changes. PMF Active Problems Active Problems: All Active Problems (Updated 08/06/22 @ 11:14 by Denise Gusman MD) Acute and chronic respiratory failure (Acute) COPD exacerbation (Acute) Viral syndrome (Acute) Pneumonia (Acute) Chronic pain syndrome (Acute) Spinal stenosis of lumbar region without neurogenic claudication (Acute) Spondylosis of lumbar spine (Acute) Disc degeneration, lumbar (Acute) Restless leg syndrome (Acute) Dyspnea (Acute) Laryngeal disorder (Acute) Bradycardia (Acute) Back pain (Acute) Chronic respiratory failure (Acute) Bronchiectasis (Acute) COPD (chronic obstructive pulmonary disease) (Acute) Past Medical History Medical History Abdominal pain Anxiety Arthritis Asymptomatic superficial varicose vein of lower extremity Back pain Bleeding hemorrhoids Bradycardia Bronchiectasis Chronic pain syndrome Chronic respiratory failure COPD (chronic obstructive pulmonary disease) COPD exacerbation Cough Disc degeneration, lumbar Dyspnea Hx of glaucoma Hx of small bowel obstruction IBS (irritable bowel syndrome) Laryngeal disorder Oxygen dependent Pneumonia Restless leg syndrome Sleep apnea 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 Viral syndrome Surgical History Surgical History H/O colonoscopy History of back surgery History of cardiac cath History of lobectomy of lung Hx of appendectomy Hx of bone marrow donation Hx of cataract extraction Hx of cholecystectomy Hx of hemorrhoidectomy Hx of hernia repair Hx of knee surgery Hx of neck surgery Social History Social History Are you a primary director of health care marketing to a significant other at home: No Do you presently have visiting nurse or other home services: No Patient Tobacco Use Status: Former Tobacco user Quit Date: 1998 Use of substances other than those prescribed or required for medical reasons: No Are you DNR?: No Advance Directives: No Advance Directives Information Provided: Yes Advance Directives Date on File: 07/28/21 Meds Allergies Allergy/AdvReac Type Severity Reaction Status Date / Time No Known Allergies Allergy Verified 08/06/22 11:09 Home Medications Medication Instructions Recorded Confirmed Last Taken Type diclofenac sodium 1 % topical gel g topical DAILY 01/03/20 03/29/22 Unknown History flu vacc [id number](65yr up)-PF 240 ml IM 01/03/20 03/29/22 Unknown History mcg/0.7 mL intramuscular syringe gabapentin 300 mg capsule 300 mg PO BID 01/03/20 07/08/22 Unknown History (Neurontin) ibandronate 150 mg tablet (Boniva) 150 mg PO ONCE 01/03/20 07/07/22 Unknown History ropinirole 2 mg tablet 1 mg PO BID 12/23/20 07/07/22 Unknown History pantoprazole 40 mg tablet,delayed 40 mg PO QAM 09/09/21 07/07/22 08/06/22 08:30 History release (Protonix) trazodone 100 mg tablet 100 mg PO BEDTIME 09/09/21 07/07/22 Unknown History albuterol sulfate 2.5 mg/3 mL 2.5 mg inhalation BID for wheezing 10/27/21 07/07/22 08/06/22 08:30 History (0.083 %) solution for nebulization metoprolol tartrate 25 mg tablet 25 mg PO DAILY 10/27/21 07/07/22 08/06/22 08:30 History furosemide 20 mg tablet (Lasix) 20 mg PO DAILY 12/24/21 07/07/22 Unknown History Oxygen Home Use 04/29/22 Unknown History nebulizers 04/29/22 Unknown History gabapentin 300 mg tablet 900 mg PO BEDTIME 07/07/22 07/07/22 Unknown History ipratropium bromide 42 mcg (0.06 2 spray intranasal TID PRN Sinus 07/07/22 07/07/22 Unknown History %) nasal spray Symptoms melatonin 12 mg tablet 12 mg PO BEDTIME 07/07/22 07/07/22 Unknown History acetaminophen 500 mg tablet 1,000 mg PO BID PRN Back Pain 07/08/22 07/08/22 Unknown History (Acetaminophen Extra Strength) albuterol sulfate 90 mcg/actuation 2 puff inhalation Q4H PRN for 08/06/22 Unknown History aerosol inhaler (ProAir HFA) wheezing azithromycin 250 mg tablet 250 mg PO 3XW 08/06/22 Unknown History (Zithromax) montelukast 10 mg tablet 10 mg PO DAILY 08/06/22 Unknown History (Singulair) Exam Height,Weight and Vital Signs: Height 5 ft 3 in Weight 57.153 kg Vital Signs Temp Pulse Resp BP Pulse Ox O2 Del Method O2 Flow Rate 08/06/22 11:09 98.2 F 63 18 150/68 H 99 Nasal Cannula 2 Narrative Narrative: EKG 06/2022 Vent. Rate : 057 BPM ? ? Atrial Rate : 057 BPM ?? P-R Int : 162 ms? QRS Dur : 092 ms ? ? QT Int : 416 ms ? ? ? P-R-T Axes : 066 -14 037 degrees ?? QTc Int : 404 ms ? Sinus bradycardia Low voltage QRS Borderline ECG No previous ECGs available ECHO 11/2021 1. Nml LV cavity size, wall thickness. Nml regional wall motion with low nml systolic function and EF 50-55% 2. Nml RV size and systolic function 3. No hemodynamically significant valve disase 4. Borderline pulmo htn 5. Upper normal to mildly dilated ascending aorta C/W prior echo from 10/2020, findings unchanged 08/05/22 CXR FINDINGS: Chest: The lungs are well expanded. Small left pleural effusion. Increased streaky right basilar opacity. No edema. No pneumothorax. The cardiomediastinal silhouette is unchanged, with a calcified aorta. Assessment and Plan Assessment Anesthesia Assessment: Anesthesia Plan Discussed Final Anesthetic Review NPO: Yes ASA Class: IV Final Preanesthetic Review: No Changes in Pt Med Stat, Meds/Allgs Chart Reviewed, Consent Obtained/Reviewed and Anes Risks/Benef Reviewed Patient Risk: High Procedure Risk: Intermediate Assessment/Block/Sedation in SS: Assess/Block/Sedation-SS Anesthetic Plan Anesthetic Plan: MAC: and Other (Discussed plan with patient and daughter as they were especially worried about anesthesia, Including conversation with Dr Diaz. Comfortable and agree with plan of MAC anesthesia with GA(preferably LMA) as back-up) Disposition: Standard PACU
--- NOTE | ~2022-08-06 | FL_ITS ---
EXAMINATION: XR FLUOROSCOPY WITH IMAGES CLINICAL INFORMATION: Spinal stimulator COMPARISON: None available. TECHNIQUE: Fluoroscopy Supervised By: Dr. Michael Yancey. Fluoroscopy Time: 5.8 minutes. Cumulative Dose: 62 mGy. DAP: 17 Gycm2. Images: 2. FINDINGS: Initial lateral image demonstrates one lead projecting over the lower thoracic spinal canal. Second PA or AP image demonstrates 2 leads projecting over the lower thoracic spinal canal. FL/FL guidance in OR IMPRESSION: Fluoroscopy guidance for spinal stimulator procedure.
[2022-08-06 10:51] VITALS: BMI 22.3
[2022-08-06 11:09] VITALS: BP 150/68; PULSE 63; RESP 18; TEMP 36.8; O2SAT 99
[2022-08-06] MEDS: Lactated Ringers 1,000 ML 50 ML IVCONT (11:41)
--- NOTE | 2022-08-06 11:41 | MHC.SHP ---
Pre-Procedural Eval Section A Date of Service: 08/06/22 The patient is an INPATIENT: No Changes since office visit: Yes Patient answered all questions The History & Physical has been completed within 30 days and I have reviewed it.: No Section B Chief Complaint: Spondylosis w/o myelopathy or radiculopathy,degen Details of Present Illness: As above Relevant Family History (Specify if Yes): No Relevant Social History: None Present Medications: None Medical History: No relevant PMH History of Previous Operations: Relevant previous surgery/procedure and date(s) Allergies: Allergies Allergy/AdvReac Type Severity Reaction Status Date / Time No Known Allergies Allergy Verified 08/06/22 11:09 Review of Systems Sugical H&P ROS: Negative: Constitution, Cardiovascular, Neurological, Psychiatric, Hem-Onc, Allergic/Immunologic, Gastrointestinal, Genitourinary, Integumentary, Endocrine and Eyes/Ears/Nose/Throat and Yes, Specify: Respiratory ( severe COPD) and Musculoskeletal ( spondylosis lumbar spine, spinal stenosis, chronic pain syndrome) Exam Surgical H&P Exam: Normal: HEENT, Normal: Heart, Normal: Extremities, Normal: Abdomen, Normal: Skin and Normal: Neurological and Significant Findings: Lungs ( severe COPD) Plan Diagnosis/Plan: Unchanged I have reviewed the history and physical and performed a pertinent physical examination on my patient. No changes have occurred unless specified. Time Spent With Patient Time: Total time managing care of this patient today _5___ minutes.
--- NOTE | 2022-08-06 13:58 | P.BOP_ITS ---
Brief Operative Note Date of Service: 08/06/22 Pre-op diagnosis: spinal stenosis, chronic pain syndrome. Post-op diagnosis: same Procedure: implantation of SCS Nevro Surgeon: Michael Yancey MD Anesthesia: MAC Was an Seal Extrusion Operator used for this Procedure?: No Estimated blood loss (mL): 20 Pathology: none sent Condition: stable Disposition: PACU
--- NOTE | 2022-08-06 13:59 | W.PM.OPN ---
Operative Note Operative Note Date of Service: 08/06/22 Narrative: Mr. Sellers is very pleasant 81 years old [place] speaking gentleman who came to the OR today today for implantation of spinal cord stimulator Nevro for the treatment of chronic pain syndrome, spondylosis of lumbar spine, disc degeneration lumbar and moderate spinal stenosis. . Preoperatively patient received cefazolin 2 g approximately 30 minutes before the procedure. After obtaining informed consent the patient was brought to the operating room, he was positioned prone on the operating table, [employer] monitors were applied and he was deeply sedated. Time-out was performed delineating correct site, side, the nature of the procedure, patient's allergy, preoperative antibiotic if needed. All operating room staff was participating in OR time-out procedure. Patient's entire back was prepped with ChloraPrep twice and draped with full body fenestrated drape and ioban film. Sterilely draped C-arm was brought over operating field and square picture of L1-L2 and L3 vertebrae were demonstrated on the screen. The skin was infiltrated with the mixture of lidocaine 2% and ropivacaine 0.5% in the projection of L1-L2 and [id number] procesess. After that number 10 Blade scalpel was used to perform strict midline 7 cm long incision. the incision was widened and deepened until the prevertebral fascia was reached. Thorough hemostasis was obtained, After that attention was concentrated on the L1-L2 epidural interspace. The location of the projection of the right pedicle center of the L3 vertebra was found on the fascia using C-arm. 10 cm 14 gauge introducer epidural needle was inserted through the prevertebral fascia and advanced to L1-L2 epidural interspace. The advancement of the needle was performed on anterior posterior and lateral views. Guitar wire and loss of resistance technique were used to locate epidural space. When guitar wire was spread in the epidural fashion, epidural lead was inserted through the needle and it was advanced to the posterior epidural space.The lead was advanced strictly at the midline approximately to the top of T8 vertebra in the posterior epidural space. The position of the lead in the posterior epidural space was verified on the lateral view. Surgicel was used to achiever the hemostasis in the wound. After that location of the projection of the LEFT pedicle center of the L3 vertebra was found using C-arm. 10 cm 14 gauge introducer epidural needle was inserted through the fascia and advanced to T12-L1 epidural interspace. The advancement of the needle was performed on anterior posterior and lateral views. Guitar wire and loss of resistance technique were used to locate epidural space. When guitar wire was spread in the epidural fashion, epidural lead was inserted through the needle. Loss of resistance to air technique and guitar wire were used to locate epidural space. After that the epidural lead was advanced slightly left to the midline to the top of the T9 vertebra in the posterior epidural space slightly left to the existing electrode. After satisfactory position of the leads were established the needles were withdrawn, the stylette wires were removed from the epidural leads. The anchoring devices were dislodged on the leads and advanced to the level of the prevertebral fascia. After that the anchoring devices were sutured to the prevertebral fascia using Tycron 0-0 sutures - 2 sutures per each anchoroing device . The fixation scews were locked until 3 clicks heard. The wound was irrigated with vancomycin containing saline and packed with the 4x4 soaked with the same saline solution. After that attention was concentrated on the right upper buttock of the patient were the decision was made to implant the battery. 3 cm below the top of the left iliac crest horizontal incision was made 6.5 cm long using 10 blade scalpel, hemostasis was performed using electric cautery.. Using sharp and dull dissection pocket for the battery was formed in caudad direction from the incision. Thorough hemostasis was performed. After that the wound pocket was irrigated with vancomycin containing normal saline and tunneling device was used to connect midline incision and upper buttock incision. Tunneling device was used to connect the two wounds. The epidural leads were dislodged from midline incision to the buttock incision through the tunneling device. After that they were connected to the Omnia battery and impedance was checked and found to be satisfactory with all leads connected. Anchoring screws were fixed on the back of the battery. Tycron of 0- 0 sutures were applied to the superior lateral and superior medial corners of the upper portion of the pocket wound and after that the anchoring sutures were connected to the anchoring orifices on the battery. Electrodes were gathered behind the body of the battery and battery was dislodged into the subcutaneous pocket wound. The sutures were tied and irrigation was repeated. After that 0-0 Polysorb sutures used to close the both wounds and the 0-2 polisorb sutures were used to apptoximate the level of the skin , Yani were applied to the skin. The sterile dressing comprised of several 4x4 for each wound and bacitracin ointment was affixed to the skin using medipore tape.. The patient was transfered supine on the stretcher, awaken, and transferred stable to the PACU.
[2022-08-06 14:03] VITALS: BP 121/63; PULSE 65; RESP 16; TEMP 36.8; O2SAT 96
[2022-08-06 14:18] VITALS: BP 125/60; PULSE 63; RESP 18; O2SAT 94
[2022-08-06 14:33] VITALS: BP 125/53; PULSE 56; RESP 18; O2SAT 94
[2022-08-06] MEDS: Acetaminophen 1,000 MG/100 ML PIGGYBACK 400 MG IV (14:43)
[2022-08-06 14:48] VITALS: BP 133/56; PULSE 56; RESP 18; TEMP 36.6; O2SAT 95
== END 2022-08-06 15:33 | disposition home or self-care (01) ==
PROVIDERS: PCP Internal Medicine; Visit Provider Anesthesiology
PROC: (CPT 63685; principal; 2022-08-06 11:30)
DX: M47.816 Spondylosis without myelopathy or radiculopathy, lumbar region (principal); M51.36 Other intervertebral disc degeneration, lumbar region; G89.4 Chronic pain syndrome; M48.061 Spinal stenosis, lumbar region without neurogenic claudication; F41.1 Generalized anxiety disorder; J96.10 Chronic respiratory failure, unspecified whether with hypoxia or hypercapnia; J44.9 Chronic obstructive pulmonary disease, unspecified; J18.9 Pneumonia, unspecified organism; B34.9 Viral infection, unspecified; G47.30 Sleep apnea, unspecified; Z99.81 Dependence on supplemental oxygen; Z79.51 Long term (current) use of inhaled steroids; Z79.899 Other long term (current) drug therapy; Z87.891 Personal history of nicotine dependence
CPT/HCPCS: 63685; 63650 ×2; C1713; C1778; C1787; C1816; J0131; J0690; J1100; J2250; J2405; J2795; J3010; J3370

== ENCOUNTER → 2022-08-13 14:33 | Outpatient (BNVA) | payer MEDICARE, SELFPAY | PROVIDERS: PCP Internal Medicine; Visit Provider Nurse Practitioner Family | DX: G89.4 Chronic pain syndrome (principal); M48.061 Spinal stenosis, lumbar region without neurogenic claudication; M47.816 Spondylosis without myelopathy or radiculopathy, lumbar region; M51.36 Other intervertebral disc degeneration, lumbar region; Z98.890 Other specified postprocedural states | CPT/HCPCS: 99212 ==

== ENCOUNTER → 2022-08-19 10:12 | Outpatient (BNVA) | payer MEDICARE, SELFPAY | PROVIDERS: PCP Internal Medicine; Visit Provider Anesthesiology | DX: M48.061 Spinal stenosis, lumbar region without neurogenic claudication (principal); M47.816 Spondylosis without myelopathy or radiculopathy, lumbar region; M51.36 Other intervertebral disc degeneration, lumbar region; G89.4 Chronic pain syndrome | CPT/HCPCS: 99212 ==

== ENCOUNTER 2022-12-02 15:51 | Outpatient (AMB) | payer MEDICARE, SELFPAY ==
--- NOTE | 2022-12-02 15:53 | MHC.OFFVIS ---
Intake Vital Signs 12/02/22 15:54 Height 5 ft 3 in Weight 127 lb 13.89 oz BMI 22.6 BP 119/58 L Blood Pressure Location Lt brachial Position Sitting Pulse 64 Pulse Source Doppler Pulse Oximetry (%) 94 Oxygen Delivery Method Nasal Cannula Oxygen Flow Rate 2 Intake Visit Reasons: COPD Allergies No Known Allergies Allergy (Verified 12/02/22 15:56) HPI HPI Comments History of Present Illness Details The patient is a 81 y/o man with a history of COPD with chronic respiratory failure on oxygen. He also uses a BiPAP at night for his respiratory failure due to his COPD. He did have a trilogy noninvasive ventilator for some time but he did not tolerated. In the meantime he also has bronchiectasis with significant mucus production. It has been stable at this point with daily mucus. The mucus is to be green in color. He did have a flutter valve although he does not have 1 right now. We talked about the importance of performing CPT with neb treatments and with flutter valve. He does not want to use any medications so therefore we could try sodium chloride nebulized treatments. He continues to use the oxygen. At this point I would like him to stay on the liquid oxygen. This has been very effective for him. 05/01/2021 the patient is here for a pulmonary follow-up visit. He is doing about the same. Complaining about his back pain. Recently had a cortisone shot without any significant improvement. Now he is considering another procedure with pain specialist. At this point the patient is medically optimized from a pulmonary standpoint. He did have an ABG which is reassuring demonstrating a chronic respiratory acidosis with a pCO2 of 54 mmHg. This is actually very stable for him as he has been at this level for 8-10 years. He has been on BiPAP with good response. He continues with the oxygen with the conserving valve. It is difficult for him to carry the oxygen tanks it does not given min of portability outside of the home. Apparently he was already approved for the portable oxygen concentrator in of just waiting for delivery from his [employer] company. Will try to assist with this process. He also had a chest x-ray which we personally reviewed demonstrating persistent left-sided atelectasis. He did have surgery on the lung many years ago. He continues on the azithromycin 3 times a week. He knows to get EKGs regularly to monitor the QT intervals. 09/09/2021 the patient is here for a hospital follow-up visit. During his last visit he was found to be in acute on chronic respiratory failure. He was taken to [facility] where he was admitted for about 2 weeks. He continues very frail. He did have a viral syndrome, human metapneumovirus. Likely complicated with pneumonia. He required high levels of oxygen via high-flow and also was using the BiPAP at nighttime and also during the daytime. The patient was slow to recover. Because of his significant respiratory failure he was transferred to [facility] rehab. there he spent 2 weeks he started to improve but still was very weak. From there he was transferred to a local rehab where he spent another couple weeks. 9 cm home. He is using his noninvasive ventilator at nighttime. In addition to that he continues his oxygen therapy. He continues with a productive cough. His major issue right now is his back pain. His are for him to cough because of the pain. He was supposed to undergo a procedure with the pain clinic. However, due to the circumstances it had to be postponed. At this time I believe the patient she would few months in order to fully recover before undergoing any semi-invasive interventions. He continues to be on 5 mg of prednisone. Can hopefully taper him off slowly to make sure that he does not have any rebound symptoms. We did review his recent blood work which included a Chem 7 with a bicarb of 33 which is reassuring. will plan to check additional blood work including a venous gas for his next visit in 6-8 months. 10/27/2021 the patient is here for a pulmonary follow-up visit. Overall the patient is doing little better. Respiratory status has been slowly improving. He did try to get chest for his back pain but they were not very effective. Continues to struggle with back pain at this time. He is also using his noninvasive ventilator, iVAPS. Patient has been having difficulty tolerating it 1st above because the pressures are too high and also he cannot find a comfortable mask. He has tried multiple masks. The last mask he got was a foam mask and unfortunately it was manipulated and broken. Now he does not have that working mask. I did have an F 30 30i mask available that I did provide to him so he can start using it hopefully this mass will fit better and also will avoid eating too much irritation to the top of the nose. He did undergo blood work including of chemistries with normal potassium and also his CBC was otherwise normal except for slight mild anemia with hemoglobin 11 5. in addition to that he had a venous gas demonstrating a pCO2 of 66 mmHg he a 7.33. Explained to the daughter that this is hard to compare to his a serial blood gas. However, it goes to show that needs to uses noninvasive ventilator every night. Because of the nasal irritation has not been using in a couple days. I am hopeful that with the new mask he tolerates that better. in addition to that I did adjust the ventilatory settings by; decreasing maximum expiratory pressure to 12, decrease in maximum inspiratory pressure to 20, decreasing respiratory rate from 15 to 12. the patient will try the new settings and will follow-up and couple months to review response to therapy. He is to bring his machine with him. I will request a download from his company. In addition to that the patient does need to have a humidifier added to his ventilator to minimize dryness in the discomfort. 12/24/2021 the patient is here for a pulmonary follow-up visit. Since we last spoke the patient has been doing better. He has been tolerating the changes on his noninvasive ventilator. He has been using the noninvasive ventilator with 3 L nasal cannula. He did undergo an overnight oximetry which we did request multiple times some José Miguel but did not provide us with the results. Therefore will going to have to get the results in that the patient now the results. He still struggling with not getting supplies for his noninvasive ventilator. Recently José Miguel did go to his house in the year assure him that he is going to be able to get the supplies soon. The cough has improved. The patient continues on his current respiratory regimen with good results. He continues on the Trelegy daily. Will follow up with the overnight oximetry. If in the the patient continues to have some degree of hypoxia then we had to further adjust the ventilator. My suspicion is that he is doing well with current settings. His last ABG done in October 2021 was reassuring with compensated chronic hypercarbic respiratory failure. 04/29/2022 the patient is here for a pulmonary follow-up visit. Overall the patient is doing about the same. He is having a productive cough. The cough is bringing up yellowish phlegm which is about the same frequency and consistency. He is aware that if is to change colors freak N/C and consistency he can call so we can treated. He continues on the azithromycin 3 times a week in the meantime. He continues use the noninvasive ventilator. Seems to be tolerating better with current settings. In addition to that the patient has been using the Trelegy inhaler with good effect. He continues use the oxygen as well. He has major issues his back pain. He is agreeable to following up with a pain specialist in order to have better back pain control. He is open to getting a trial stimulator to see if this provides relief. If it does will need to have more of a surgical implantation. As long as he does not require general anesthesia this will be something reasonable for the patient. He is 81 he is somewhat frail. But, he would like improved pain management. 08/05/2022 the patient is here for a pulmonary follow-up visit. The patient is doing well from a respiratory status. He continues to have productive cough with greenish yellowish phlegm regularly. Typically this getting better in the morning and then worse during the day. He did undergo a trial for his spinal stimulator and this was effective about 70% which is happy about. Afterwards he developed abdominal pain and has had issues with some epigastric discomfort. He was evaluated by primary care and did have blood work which was all reassuring. Still though is tender to the touch. I have get an x-ray to make sure that he does not have anything significant specially since he is going to have surgery scheduled for tomorrow for the spinal stimulator permanent procedure. He continues using noninvasive ventilator at nighttime. Appears to be affecting beneficial and also using the nebulizers twice a day also with good effect. 12/02/2022 the patient is here for a pulmonary follow-up visit. Recently had a cold and he actually did fairly well without any worsening respiratory symptoms. The family was very happy about that. He has been using his respiratory therapy with good effect. His major complaint is very dry mouth with the point that he is tongue sticks to his sides and he has a hard time speaking. Explained to them that this partly due to his age and likely pH difference in his oral mucosa. In addition that it could be medication related. He does take ipratropium nasal spray will have them stop that. The patient also will start the budesonide for now to see if he has any relief. He is also been on Lasix. The patient has a low diastolic pressure 50 and has had low blood pressures before. The patient does not appear to be volume overloaded. Therefore I did request that they hold the Lasix for now and wait him on a daily basis. If he gains a couple lb that he should be start the Lasix but only half dose. And then if he develops any significant lower extremity edema he should just increase the Lasix back to the full dose of 20 mg. but at this point I do believe that he is intravascularly depleted in this can also cause his mouth to be also dry. He is using the noninvasive ventilator at nighttime he does have humidification with it and has been adjusted accordingly. He is still coughing up phlegm. His respiratory exam is reassuring. I did provide him with a sputum cup for sputum culture to make sure that he is not harboring any concerning bacterial pathogens. For now he will continue with current respiratory therapy and will minimize on some of the medications to hopefully help his significant drowsiness. In regards to the back pain he did get the pain stimulator. Is currently being adjusted further to provide him with additional relief. Back in July he did have a chest x-ray demonstrating some minimal changes atelectasis slight opacities and pleural effusion. Therefore the patient will come back at some point get a repeat x-ray as well. 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 Disc degeneration, lumbar Restless leg syndrome Dyspnea Laryngeal disorder Bradycardia Back pain Chronic respiratory failure Bronchiectasis COPD (chronic obstructive pulmonary disease) Surgical History History of back surgery Hx of cholecystectomy Hx of hernia repair Hx of cataract extraction History of lobectomy of lung Hx of bone marrow donation Hx of neck surgery Hx of knee surgery Hx of hemorrhoidectomy Hx of appendectomy H/O colonoscopy History of cardiac cath Social History Are you a primary acute care nursing assistant to a significant other at home: No Do you presently have visiting nurse or other home services: No Patient Tobacco Use Status: Former Tobacco user Quit Date: 1998 Advance Directives Date on File: 07/28/21 Review of Systems Const Denies fever(s) and Denies night sweats Eyes Denies change in vision and Denies diplopia ENT Reports Normal hearing present, Denies dizziness and Reports dry mouth Card Denies chest pain, Denies dyspnea and Reports dyspnea on exertion Resp Reports chest congestion, Reports cough, Denies excessive phlegm production, Denies pain with cough, Denies dyspnea, Reports dyspnea on exertion, Denies wheezing and Denies other (On oxygen up to 3 L a minute.) GI Denies abdominal pain Musc Reports as per HPI, Reports abnormal gait, Reports back pain, Reports myalgias, Reports atrophy and Reports arthralgias Neuro Reports Normal hearing present, Denies Neuro-related abnormal movements, Reports abnormal gait, Denies dizziness and Denies Sensory deficit (Neuro) Psych Denies no additional complaints Ruel/Lymph Denies easy bleeding Aller/Immun Denies wheezing Physical Exam Vital Signs: Last Vital Signs Pulse 64 12/02/22 15:54 BP 119/58 L 12/02/22 15:54 Pulse Ox 94 12/02/22 15:54 Oxygen Delivery Method Nasal Cannula 12/02/22 15:54 Oxygen Flow Rate 2 12/02/22 15:54 BMI result Body Mass Index 22.6 Const General: comfortable, no acute distress and well groomed HEENT Head: Yes normal to inspection General nose exam: Abnormal nasal septum present other (sore on the left) Neck Neck: Yes supple Chest Chest palpation & inspection: normal inspection of the chest Resp Auscultation: no crackles, no wheezes and diminished lung sounds Cardio Rate: regular rate Rhythm: regular rhythm Heart sounds: S1 normal heart sound present and S2 normal heart sound present General: Yes no CVA tenderness Back/Spine/Pelvis Back: no CVA tenderness Neuro General: moves all extremities, no focal motor deficits and Unable to assess gait Cranial nerves: Yes Normal hearing present Gait exam (Neuro): Unable to assess gait Motor exam (neuro): 5/5 motor strength present throughout and Pronator motor function not present Sensory Exam: No Sensory deficit (Neuro) Extrem General: Yes no clubbing, cyanosis or edema Results Reviewed Results Reviewed: [address] [address] XRay Report Signed Patient: Paul Sellers#: [id number] : 1940 Acct:[id number] Age/Sex: 81 / M ADM Date: 08/05/22 Loc: [facility] Attending Dr: Gavin Diaz MD Ordering Physician: Gavin Diaz MD Date of Service: 08/05/22 Procedure(s): XR chest 2V Accession Number(s): [id number] cc: Gavin Diaz MD~ EXAMINATION: XR abdomen 3V, XR chest 2V CLINICAL INFORMATION: Abdominal pain. COMPARISON: 07/21/2021 TECHNIQUE: PA and lateral views of the chest. 2 views of the abdomen. FINDINGS: Chest: The lungs are well expanded. Small left pleural effusion. Increased streaky right basilar opacity. No edema. No pneumothorax. The cardiomediastinal silhouette is unchanged, with a calcified aorta. ABDOMEN: Nonobstructive bowel gas pattern. No dilated loops of bowel. Scattered gas and stool in the colon. No free air on the upright view. No air-fluid levels. Degenerative changes in the spine. XR/XR chest 2V IMPRESSION: 1. Small left pleural effusion. Increased streaky right basilar opacity favors atelectasis. 2. Nonobstructive bowel gas pattern. Dictated By: Brayan Watkins MD Signed By: <Electronically signed by Brayan Watkins MD in OV> 08/05/22 1652 DD/ 1641 TD/TT: Solar Consultant: DAVID Assessment & Plan Assessment & Plan (1) Chronic respiratory failure: Code(s): J96.10 - Chronic respiratory failure, unspecified whether with hypoxia or hypercapnia Qualifiers: Respiratory failure complication: hypoxia and hypercapnia Qualified Code(s): J96.11 - Chronic respiratory failure with hypoxia; J96.12 - Chronic respiratory failure with hypercapnia (2) COPD (chronic obstructive pulmonary disease): Code(s): J44.9 - Chronic obstructive pulmonary disease, unspecified Qualifiers: COPD type: chronic bronchitis Chronic bronchitis type: mucopurulent Qualified Code(s): J41.1 - Mucopurulent chronic bronchitis (3) Bronchiectasis: Code(s): J47.9 - Bronchiectasis, uncomplicated Qualifiers: Bronchiectasis type: uncomplicated Qualified Code(s): J47.9 - Bronchiectasis, uncomplicated (4) Dyspnea: Code(s): R06.00 - Dyspnea, unspecified Qualifiers: Dyspnea type: shortness of breath Qualified Code(s): R06.02 - Shortness of breath (5) Chronic pain syndrome: Code(s): G89.4 - Chronic pain syndrome (6) Dry mouth: Comment: Likely medication related and age related Code(s): R68.2 - Dry mouth, unspecified Plan Continue Trelegy, rinse well CPT with nebs and acapella valve continue oxygen supplementation iVAPS and 3 L oxygen, NIV at night pain management s/p pain stimulator sputum cx hold lasix for now, monitor wt hold ipratropium nasal spray follow-up in 3-4 months Orders: Orders XR chest 2V Today J44.1 - Chronic obstructive pulmonary disease with (acute) exacerbation Sputum Cult + Gram stain Today J47.9 - Bronchiectasis, uncomplicated Medications: New benzonatate 200 mg PO BID 30 days PRN 30 caps 0RF cough Coding Level of Care Code Est Pt Level 5 (32021) Diagnoses Chronic respiratory failure with hypoxia and hypercapnia J96.11; J96.12 Respiratory failure complication: hypoxia and hypercapnia Mucopurulent chronic bronchitis J41.1 COPD type: chronic bronchitis Chronic bronchitis type: mucopurulent Bronchiectasis without complication J47.9 Bronchiectasis type: uncomplicated Shortness of breath R06.02 Dyspnea type: shortness of breath Chronic pain syndrome G89.4 Dry mouth R68.2 Time Spent (min) 40
[2022-12-02 15:54] VITALS: BP 119/58; PULSE 64; O2SAT 94; BMI 22.6
== END 2022-12-03 13:37 | disposition home or self-care (01) ==
PROVIDERS: PCP Internal Medicine; Visit Provider Hospitalist
DX: J96.11 Chronic respiratory failure with hypoxia (principal); J96.12 Chronic respiratory failure with hypercapnia; J41.1 Mucopurulent chronic bronchitis; G89.4 Chronic pain syndrome; R68.2 Dry mouth, unspecified
CPT/HCPCS: 99215

== ENCOUNTER → 2022-12-02 15:51 | Outpatient (BNVA) | payer MEDICARE, SELFPAY | PROVIDERS: PCP Internal Medicine; Visit Provider Hospitalist | DX: J41.1 Mucopurulent chronic bronchitis (principal); J47.9 Bronchiectasis, uncomplicated; J96.11 Chronic respiratory failure with hypoxia; J96.12 Chronic respiratory failure with hypercapnia; G89.4 Chronic pain syndrome; R68.2 Dry mouth, unspecified; Z79.899 Other long term (current) drug therapy; Z99.81 Dependence on supplemental oxygen | CPT/HCPCS: 99212 ==

== ENCOUNTER 2022-12-27 13:06 | Outpatient (REF) | payer MEDICARE, SELFPAY ==
--- NOTE | ~2022-12-27 | XR_ITS ---
EXAMINATION: XR CHEST CLINICAL INFORMATION: Pleurodynia COMPARISON: PA and lateral chest 08/05/2022 TECHNIQUE: 2 views of the chest were obtained. FINDINGS: The lungs are hyperexpanded suggesting underlying COPD. Heart size is upper limits of normal. There is mild upper zone redistribution similar to prior of questionable significance. Chronic blunting of the left costophrenic angle the represent a small effusion and/or pleural thickening. No interval change from prior. There is a new opacity seen in the right upper lung laterally which appears calcified. This was not seen previously. Bibasilar scarring is again noted. There are new spinal stimulation catheters with tips overlying the mid thoracic spine. No rib fractures are seen. No pneumothorax. Vascular calcifications are seen in both axilla. XR/XR chest 2V IMPRESSION: 1. No acute intrathoracic disease. 2. New opacity right upper lung laterally which appears calcified. This was not seen previously. This could represent an area of en face pleural calcification that was not seen previously. CT scan of the chest could be performed for further evaluation although given the calcified appearance, this is most likely benign.
== END 2022-12-27 13:07 | disposition home or self-care (01) ==
LOC: HO.XRAY 13:06
PROVIDERS: PCP Internal Medicine; Visit Provider Hospitalist
DX: R07.81 Pleurodynia (principal)
CPT/HCPCS: 71046

== ENCOUNTER 2022-12-29 15:54 | Outpatient (REF) | payer MEDICARE, SELFPAY ==
[2022-12-29 16:46] LABS: MANUAL DIFF FLAG NO
[2022-12-29 16:57] LABS: Basophils Percent Auto 0.1 % (0-2); Eosinophils Percent Auto 0.4 % (0-4); Hematocrit 38.3 % (42.0-52.0); Hemoglobin 11.6 g/dl (14.0-18.0); Imm Gran Abs Auto 0.05 X10*3/uL (0.00-0.03); Imm Gran Pct Auto 0.5 % (0.0-0.4); Lymphocytes Absolute Auto 1.3 X10*3/uL (1.2-4.9); Lymphocytes Percent Auto 13.4 % (20-40); Mean Corpuscular HGB Conc 30.3 g/dl (31.0-36.0); Mean Corpuscular Hemoglobin 30.2 pg (27.0-33.0); Mean Corpuscular Volume 99.7 fL (80.0-98.0); Mean Platelet Volume 10.5 fL (9.4-12.4); Monocytes Absolute Auto 0.9 X10*3/uL (0.1-1.2); Neutrophils Absolute Auto 7.1 x10*3/uL (2.0-8.3); Neutrophils Percent Auto 75.6 % (45-73); Platelet Count 163 X10*3/uL (160-400); Red Blood Count 3.84 X10*6/uL (4.60-5.80); Red Cell Distribution Width 13.7 % (11.0-16.0); White Blood Count 9.4 X10*3/uL (4.8-10.8)
[2022-12-29 17:23] LABS: Anion Gap 10 (12-20); Blood Urea Nitrogen 14 mg/dL (9-16); Calcium 8.8 mg/dL (8.4-10.2); Carbon Dioxide 35 mmol/L (22-29); Chloride 102 mmol/L (96-108); Estimated Glomerular Filt Rate > 60; Glucose Random 109 mg/dL (60-115); Potassium 4.3 mmol/L (3.3-5.1); Sodium 143 mmol/L (135-145)
[2022-12-29 17:41] LABS: Erythrocyte Sedimentation Rate 20 MM/HR (0-15)
[2022-12-29 18:10] LABS: D Dimer High Sensitivity 423 NG/ML
[2023-01-02 10:38] LABS: Anti Nuclear Antibody Screen NEGATIVE (NEGATIVE)
== END 2022-12-29 15:55 | disposition home or self-care (01) ==
LOC: HO.LAB 15:54
PROVIDERS: PCP Internal Medicine; Visit Provider Hospitalist
DX: R07.81 Pleurodynia (principal)
CPT/HCPCS: 36415; 80048; 84484; 85025; 85379; 85652; 86038

== ENCOUNTER 2022-12-30 13:55 | Outpatient (REF) | payer MEDICARE, SELFPAY ==
--- NOTE | ~2022-12-30 | CT_ITS ---
EXAMINATION: CT ANGIOGRAM OF THE CHEST WITH AND WITHOUT CONTRAST (CT PULMONARY ANGIOGRAM FOR PE) CLINICAL INFORMATION: Reason for Exam R07.81 - Pleurodynia COMPARISON: None available. TECHNIQUE: Prior to contrast administration, noncontrast localization images were obtained. Subsequently, multidetector volumetric imaging was performed from the thoracic inlet to below the diaphragms following the administration of 65 mL Omnipaque 350 intravenous contrast. No contrast reaction reported Sagittal, coronal, and MIP oblique sagittal reformatted images were obtained on the CT workstation, uploaded to PACS, and reviewed. This CT examination was performed using dose optimization techniques as appropriate, variously including the following: *Automated exposure control *Adjustment of mA and/or kV according to patient size (this includes techniques or standardized protocols for targeted exams where dose is matched to indication/reason for exam; i.e. extremities or head) *Use of iterative reconstruction technique Total exam dose-length product 100 mGy-cm FINDINGS: QUALITY OF STUDY/CONTRAST BOLUS: Satisfactory. PULMONARY ARTERIES: No pulmonary emboli. THORACIC AORTA: No aneurysm. LUNG: There is right upper lobe in the right lower lobe patchy airspace disease consistent with pneumonia. There is trace of fluid in major fissure. There is calcified pleural plaque at the left lung base. PLEURA: No pleural effusion or pneumothorax. Calcified pleural plaque seen on the left. MEDIASTINUM: Normal heart size. No pericardial effusion. No hilar or mediastinal lymphadenopathy. No evidence of septal bowing or right heart strain. CORONARY ARTERY CALCIFICATION: None visualized on this study. CHEST WALL/AXILLA: No axillary or internal mammary lymphadenopathy. OSSEOUS STRUCTURES: No acute or suspicious osseous abnormality. There is neurostimulator marker seen in canal or thoracic spine. UPPER ABDOMEN: Unremarkable. No reflux of contrast into the hepatic veins to suggest elevated right heart pressures. CT/CT angio chest PE protocol IMPRESSION: 1. No evidence of pulmonary embolism. 2. Right upper lobe and right lower lobe pneumonia. 3. Calcified pleural plaque on the left. VTE: negative. Communication: Findings discussed with Dr. Gavin Diaz M.D. at 5926.
[2022-12-30] MEDS: iohexoL 350 MG/ML 100 ML INFUS..BTL IV (14:51)
== END 2022-12-30 13:56 | disposition home or self-care (01) ==
LOC: HO.CT 13:55
PROVIDERS: PCP Internal Medicine; Visit Provider Hospitalist
DX: R07.81 Pleurodynia (principal); R93.89 Abnormal findings on diagnostic imaging of other specified body structures; R79.89 Other specified abnormal findings of blood chemistry
CPT/HCPCS: 71275; Q9967

== ENCOUNTER 2023-01-20 14:52 | Outpatient (REF) | payer MEDICARE, SELFPAY ==
[2023-01-20 15:04] LABS: MANUAL DIFF FLAG NO
[2023-01-20 15:14] LABS: Basophils Percent Auto 0.1 % (0-2); Eosinophils Absolute Auto 0.1 X10*3/uL (0.0-0.4); Eosinophils Percent Auto 1.3 % (0-4); Hematocrit 40.3 % (42.0-52.0); Hemoglobin 12.5 g/dl (14.0-18.0); Imm Gran Abs Auto 0.03 X10*3/uL (0.00-0.03); Imm Gran Pct Auto 0.4 % (0.0-0.4); Lymphocytes Absolute Auto 1.9 X10*3/uL (1.2-4.9); Lymphocytes Percent Auto 27.1 % (20-40); Mean Corpuscular Hemoglobin 30.2 pg (27.0-33.0); Mean Corpuscular Volume 97.3 fL (80.0-98.0); Mean Platelet Volume 10.7 fL (9.4-12.4); Monocytes Absolute Auto 0.6 X10*3/uL (0.1-1.2); Monocytes Percent Auto 8.4 % (2-11); Neutrophils Absolute Auto 4.4 x10*3/uL (2.0-8.3); Neutrophils Percent Auto 62.7 % (45-73); Platelet Count 242 X10*3/uL (160-400); Red Blood Count 4.14 X10*6/uL (4.60-5.80); Red Cell Distribution Width 13.4 % (11.0-16.0)
[2023-01-20 15:20] LABS: Anion Gap 8 (12-20); Blood Urea Nitrogen 20 mg/dL (9-16); Calcium 9.5 mg/dL (8.4-10.2); Carbon Dioxide 35 mmol/L (22-29); Chloride 101 mmol/L (96-108); Estimated Glomerular Filt Rate > 60; Glucose Random 90 mg/dL (60-115); Potassium 4.2 mmol/L (3.3-5.1); Sodium 140 mmol/L (135-145)
[2023-01-20 16:08] LABS: Erythrocyte Sedimentation Rate 7 MM/HR (0-15)
== END 2023-01-20 14:53 | disposition home or self-care (01) ==
LOC: HO.LAB 14:52
PROVIDERS: Visit Provider Hospitalist
DX: J18.9 Pneumonia, unspecified organism (principal); J96.11 Chronic respiratory failure with hypoxia; J96.12 Chronic respiratory failure with hypercapnia; J41.1 Mucopurulent chronic bronchitis; J47.9 Bronchiectasis, uncomplicated
CPT/HCPCS: 36415; 80048; 85025; 85652; 99212

== ENCOUNTER 2023-01-20 15:07 | Outpatient (AMB) | payer MEDICARE, SELFPAY ==
--- NOTE | 2023-01-20 15:17 | MHC.OFFVIS ---
Intake Vital Signs 01/20/23 15:28 Height 5 ft 3 in Weight 123 lb BMI 21.8 BP 110/70 Pulse 64 Pulse Oximetry (%) 92 Intake Visit Reasons: follow up pneumonia Allergies No Known Allergies Allergy (Verified 01/20/23 15:17) HPI HPI Comments History of Present Illness Details The patient is a 82 y/o man with a history of COPD with chronic respiratory failure on oxygen. He also uses a BiPAP at night for his respiratory failure due to his COPD. He did have a trilogy noninvasive ventilator for some time but he did not tolerated. In the meantime he also has bronchiectasis with significant mucus production. It has been stable at this point with daily mucus. The mucus is to be green in color. He did have a flutter valve although he does not have 1 right now. We talked about the importance of performing CPT with neb treatments and with flutter valve. He does not want to use any medications so therefore we could try sodium chloride nebulized treatments. He continues to use the oxygen. At this point I would like him to stay on the liquid oxygen. This has been very effective for him. 05/01/2021 the patient is here for a pulmonary follow-up visit. He is doing about the same. Complaining about his back pain. Recently had a cortisone shot without any significant improvement. Now he is considering another procedure with pain specialist. At this point the patient is medically optimized from a pulmonary standpoint. He did have an ABG which is reassuring demonstrating a chronic respiratory acidosis with a pCO2 of 54 mmHg. This is actually very stable for him as he has been at this level for 8-10 years. He has been on BiPAP with good response. He continues with the oxygen with the conserving valve. It is difficult for him to carry the oxygen tanks it does not given min of portability outside of the home. Apparently he was already approved for the portable oxygen concentrator in of just waiting for delivery from his [employer] company. Will try to assist with this process. He also had a chest x-ray which we personally reviewed demonstrating persistent left-sided atelectasis. He did have surgery on the lung many years ago. He continues on the azithromycin 3 times a week. He knows to get EKGs regularly to monitor the QT intervals. 09/09/2021 the patient is here for a hospital follow-up visit. During his last visit he was found to be in acute on chronic respiratory failure. He was taken to [facility] where he was admitted for about 2 weeks. He continues very frail. He did have a viral syndrome, human metapneumovirus. Likely complicated with pneumonia. He required high levels of oxygen via high-flow and also was using the BiPAP at nighttime and also during the daytime. The patient was slow to recover. Because of his significant respiratory failure he was transferred to [facility]. there he spent 2 weeks he started to improve but still was very weak. From there he was transferred to a local rehab where he spent another couple weeks. 9 cm home. He is using his noninvasive ventilator at nighttime. In addition to that he continues his oxygen therapy. He continues with a productive cough. His major issue right now is his back pain. His are for him to cough because of the pain. He was supposed to undergo a procedure with the pain clinic. However, due to the circumstances it had to be postponed. At this time I believe the patient she would few months in order to fully recover before undergoing any semi-invasive interventions. He continues to be on 5 mg of prednisone. Can hopefully taper him off slowly to make sure that he does not have any rebound symptoms. We did review his recent blood work which included a Chem 7 with a bicarb of 33 which is reassuring. will plan to check additional blood work including a venous gas for his next visit in 6-8 months. 10/27/2021 the patient is here for a pulmonary follow-up visit. Overall the patient is doing little better. Respiratory status has been slowly improving. He did try to get chest for his back pain but they were not very effective. Continues to struggle with back pain at this time. He is also using his noninvasive ventilator, iVAPS. Patient has been having difficulty tolerating it 1st above because the pressures are too high and also he cannot find a comfortable mask. He has tried multiple masks. The last mask he got was a foam mask and unfortunately it was manipulated and broken. Now he does not have that working mask. I did have an F 30 30i mask available that I did provide to him so he can start using it hopefully this mass will fit better and also will avoid eating too much irritation to the top of the nose. He did undergo blood work including of chemistries with normal potassium and also his CBC was otherwise normal except for slight mild anemia with hemoglobin 11 5. in addition to that he had a venous gas demonstrating a pCO2 of 66 mmHg he a 7.33. Explained to the daughter that this is hard to compare to his a serial blood gas. However, it goes to show that needs to uses noninvasive ventilator every night. Because of the nasal irritation has not been using in a couple days. I am hopeful that with the new mask he tolerates that better. in addition to that I did adjust the ventilatory settings by; decreasing maximum expiratory pressure to 12, decrease in maximum inspiratory pressure to 20, decreasing respiratory rate from 15 to 12. the patient will try the new settings and will follow-up and couple months to review response to therapy. He is to bring his machine with him. I will request a download from his company. In addition to that the patient does need to have a humidifier added to his ventilator to minimize dryness in the discomfort. 12/24/2021 the patient is here for a pulmonary follow-up visit. Since we last spoke the patient has been doing better. He has been tolerating the changes on his noninvasive ventilator. He has been using the noninvasive ventilator with 3 L nasal cannula. He did undergo an overnight oximetry which we did request multiple times some José Miguel but did not provide us with the results. Therefore will going to have to get the results in that the patient now the results. He still struggling with not getting supplies for his noninvasive ventilator. Recently José Miguel did go to his house in the year assure him that he is going to be able to get the supplies soon. The cough has improved. The patient continues on his current respiratory regimen with good results. He continues on the Trelegy daily. Will follow up with the overnight oximetry. If in the the patient continues to have some degree of hypoxia then we had to further adjust the ventilator. My suspicion is that he is doing well with current settings. His last ABG done in October 2021 was reassuring with compensated chronic hypercarbic respiratory failure. 04/29/2022 the patient is here for a pulmonary follow-up visit. Overall the patient is doing about the same. He is having a productive cough. The cough is bringing up yellowish phlegm which is about the same frequency and consistency. He is aware that if is to change colors freak N/C and consistency he can call so we can treated. He continues on the azithromycin 3 times a week in the meantime. He continues use the noninvasive ventilator. Seems to be tolerating better with current settings. In addition to that the patient has been using the Trelegy inhaler with good effect. He continues use the oxygen as well. He has major issues his back pain. He is agreeable to following up with a pain specialist in order to have better back pain control. He is open to getting a trial stimulator to see if this provides relief. If it does will need to have more of a surgical implantation. As long as he does not require general anesthesia this will be something reasonable for the patient. He is 81 he is somewhat frail. But, he would like improved pain management. 08/05/2022 the patient is here for a pulmonary follow-up visit. The patient is doing well from a respiratory status. He continues to have productive cough with greenish yellowish phlegm regularly. Typically this getting better in the morning and then worse during the day. He did undergo a trial for his spinal stimulator and this was effective about 70% which is happy about. Afterwards he developed abdominal pain and has had issues with some epigastric discomfort. He was evaluated by primary care and did have blood work which was all reassuring. Still though is tender to the touch. I have get an x-ray to make sure that he does not have anything significant specially since he is going to have surgery scheduled for tomorrow for the spinal stimulator permanent procedure. He continues using noninvasive ventilator at nighttime. Appears to be affecting beneficial and also using the nebulizers twice a day also with good effect. 12/02/2022 the patient is here for a pulmonary follow-up visit. Recently had a cold and he actually did fairly well without any worsening respiratory symptoms. The family was very happy about that. He has been using his respiratory therapy with good effect. His major complaint is very dry mouth with the point that he is tongue sticks to his sides and he has a hard time speaking. Explained to them that this partly due to his age and likely pH difference in his oral mucosa. In addition that it could be medication related. He does take ipratropium nasal spray will have them stop that. The patient also will start the budesonide for now to see if he has any relief. He is also been on Lasix. The patient has a low diastolic pressure 50 and has had low blood pressures before. The patient does not appear to be volume overloaded. Therefore I did request that they hold the Lasix for now and wait him on a daily basis. If he gains a couple lb that he should be start the Lasix but only half dose. And then if he develops any significant lower extremity edema he should just increase the Lasix back to the full dose of 20 mg. but at this point I do believe that he is intravascularly depleted in this can also cause his mouth to be also dry. He is using the noninvasive ventilator at nighttime he does have humidification with it and has been adjusted accordingly. He is still coughing up phlegm. His respiratory exam is reassuring. I did provide him with a sputum cup for sputum culture to make sure that he is not harboring any concerning bacterial pathogens. For now he will continue with current respiratory therapy and will minimize on some of the medications to hopefully help his significant drowsiness. In regards to the back pain he did get the pain stimulator. Is currently being adjusted further to provide him with additional relief. Back in July he did have a chest x-ray demonstrating some minimal changes atelectasis slight opacities and pleural effusion. Therefore the patient will come back at some point get a repeat x-ray as well. 01/20/2023 the patient is here for a pulmonary follow-up visit. He completed the antibiotics both the doxycycline and the Vantin for the multilobar pneumonia including the right upper lobe in the right lower lobe area. He still needing the oxygen although better. While he was in the antibiotics his mucus is fairly clear. Now off the antibiotics he is getting a little yellow she can. The patient has also noticed increasing hypoxia at nighttime. The patient does uses noninvasive ventilator with the oxygen. Will have him get an overnight oximetry to make sure that he is getting adequate oxygenation. Explained to him that this will take at least a couple months to clear specially since he had significant amount of airspace disease. In addition to the looking at the CT scan myself there is a nodular component to the right upper lobe airspace disease. Therefore want a repeat the CT scan in 3 months to make sure there is complete resolution of this process and make sure there is no concomitant malignant process within that. The patient will also provide incentive spirometer so he can work on deep breathing exercises any already has a flutter device to help him with mucus clearance. He will continue with current respiratory therapy as prescribed. The patient will follow-up in [address] scan. The patient also had blood work. It appears that his left shift has improved and other by our labs are pending. Will follow-up in 3 months time. The patient develops any worsening symptoms he is to call the office for an earlier assessment. 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 Disc degeneration, lumbar Restless leg syndrome Dyspnea Laryngeal disorder Bradycardia Back pain Chronic respiratory failure Bronchiectasis COPD (chronic obstructive pulmonary disease) Surgical History History of back surgery Hx of cholecystectomy Hx of hernia repair Hx of cataract extraction History of lobectomy of lung Hx of bone marrow donation Hx of neck surgery Hx of knee surgery Hx of hemorrhoidectomy Hx of appendectomy H/O colonoscopy History of cardiac cath Social History Are you a primary home health aide caregiver to a significant other at home: No Do you presently have visiting nurse or other home services: No Patient Tobacco Use Status: Former Tobacco user Quit Date: 1998 Advance Directives Date on File: 07/28/21 Review of Systems Const Denies fever(s) and Denies night sweats Eyes Denies change in vision and Denies diplopia ENT Reports Normal hearing present, Denies dizziness and Reports dry mouth Card Denies chest pain, Denies dyspnea and Reports dyspnea on exertion Resp Reports chest congestion, Reports cough, Denies excessive phlegm production, Denies pain with cough, Denies dyspnea, Reports dyspnea on exertion, Denies wheezing and Denies other (On oxygen up to 3 L a minute.) GI Denies abdominal pain Musc Reports as per HPI, Reports abnormal gait, Reports back pain, Reports myalgias, Reports atrophy and Reports arthralgias Neuro Reports Normal hearing present, Denies Neuro-related abnormal movements, Reports abnormal gait, Denies dizziness and Denies Sensory deficit (Neuro) Psych Denies no additional complaints Ruel/Lymph Denies easy bleeding Aller/Immun Denies wheezing Physical Exam Vital Signs: Last Vital Signs Pulse 64 11/30/23 15:28 BP 110/70 01/20/23 15:28 Pulse Ox 92 01/20/23 15:28 BMI result Body Mass Index 21.8 Const General: comfortable, no acute distress and well groomed HEENT Head: Yes normal to inspection General nose exam: Abnormal nasal septum present other (sore on the left) Neck Neck: Yes supple Chest Chest palpation & inspection: normal inspection of the chest Resp Auscultation: no crackles, no wheezes and diminished lung sounds Cardio Rate: regular rate Rhythm: regular rhythm Heart sounds: S1 normal heart sound present and S2 normal heart sound present General: Yes no CVA tenderness Back/Spine/Pelvis Back: no CVA tenderness Neuro General: moves all extremities, no focal motor deficits and Unable to assess gait Cranial nerves: Yes Normal hearing present Gait exam (Neuro): Unable to assess gait Motor exam (neuro): 5/5 motor strength present throughout and Pronator motor function not present Sensory Exam: No Sensory deficit (Neuro) Extrem General: Yes no clubbing, cyanosis or edema Assessment & Plan Assessment & Plan (1) Chronic respiratory failure: Code(s): J96.10 - Chronic respiratory failure, unspecified whether with hypoxia or hypercapnia Qualifiers: Respiratory failure complication: hypoxia and hypercapnia Qualified Code(s): J96.11 - Chronic respiratory failure with hypoxia; J96.12 - Chronic respiratory failure with hypercapnia (2) COPD (chronic obstructive pulmonary disease): Code(s): J44.9 - Chronic obstructive pulmonary disease, unspecified Qualifiers: COPD type: chronic bronchitis Chronic bronchitis type: mucopurulent Qualified Code(s): J41.1 - Mucopurulent chronic bronchitis (3) Bronchiectasis: Code(s): J47.9 - Bronchiectasis, uncomplicated Qualifiers: Bronchiectasis type: uncomplicated Qualified Code(s): J47.9 - Bronchiectasis, uncomplicated (4) Dyspnea: Code(s): R06.00 - Dyspnea, unspecified Qualifiers: Dyspnea type: shortness of breath Qualified Code(s): R06.02 - Shortness of breath (5) Chronic pain syndrome: Code(s): G89.4 - Chronic pain syndrome (6) Dry mouth: Comment: Likely medication related and age related Code(s): R68.2 - Dry mouth, unspecified (7) Pneumonia: Code(s): J18.9 - Pneumonia, unspecified organism Qualifiers: Laterality: right Lung location: unspecified part of lung Pneumonia type: due to unspecified organism Qualified Code(s): J18.9 - Pneumonia, unspecified organism Plan Continue Trelegy, rinse well CPT with nebs and acapella valve continue oxygen supplementation iVAPS and 3 L oxygen, NIV at night Overnight oximetry on 3L/NIV pain management s/p pain stimulator sputum cx repeat CT chest 3 months follow-up in 3 months Orders: Orders Overnight Pulse Oximetry Today J44.9 - Chronic obstructive pulmonary disease, unspecified CT chest wo IV con 3 Months J18.9 - Pneumonia, unspecified organism, R91.1 - Solitary pulmonary nodule Coding Level of Care Code Est Pt Level 5 (45468) Diagnoses Chronic respiratory failure with hypoxia and hypercapnia J96.11; J96.12 Respiratory failure complication: hypoxia and hypercapnia Mucopurulent chronic bronchitis J41.1 COPD type: chronic bronchitis Chronic bronchitis type: mucopurulent Bronchiectasis without complication J47.9 Bronchiectasis type: uncomplicated Shortness of breath R06.02 Dyspnea type: shortness of breath Chronic pain syndrome G89.4 Dry mouth R68.2 Pneumonia of right lung due to infectious organism, unspecified part of lung J18.9 Laterality: right Lung location: unspecified part of lung Pneumonia type: due to unspecified organism Time Spent (min) 35
[2023-01-20 15:28] VITALS: BP 110/70; PULSE 64; O2SAT 92; BMI 21.8
== END 2023-01-20 15:49 | disposition home or self-care (01) ==
PROVIDERS: PCP Internal Medicine; Visit Provider Hospitalist
DX: J18.9 Pneumonia, unspecified organism (principal); J96.11 Chronic respiratory failure with hypoxia; J96.12 Chronic respiratory failure with hypercapnia; J41.1 Mucopurulent chronic bronchitis; G89.4 Chronic pain syndrome; R68.2 Dry mouth, unspecified
CPT/HCPCS: 99214

== ENCOUNTER 2023-04-12 16:14 | Outpatient (REF) | payer MEDICARE, SELFPAY ==
--- NOTE | ~2023-04-12 | CT_ITS ---
EXAMINATION: CT CHEST WITHOUT CONTRAST CLINICAL INFORMATION: Pneumonia COMPARISON: CT angiogram 12/30/2022. TECHNIQUE: Multidetector volumetric CT imaging of the chest was done. Axial MIP volume rendering provided. Sagittal and coronal reformatted images were obtained. This CT examination was performed using dose optimization techniques as appropriate, variously including the following: *Automated exposure control *Adjustment of mA and/or kV according to patient size (this includes techniques or standardized protocols for targeted exams where dose is matched to indication/reason for exam; i.e. extremities or head) *Use of iterative reconstruction technique DLP: 126 mGy-cm FINDINGS: LUNGS AND PLEURA: Emphysematous changes are present throughout the lungs. The right lower lobe consolidation as well as the right upper lobe consolidation seen on the prior 12/30/2022 study has nearly completely resolved with some mild residual disease especially at the right lung base. There is traction bronchiectasis seen at the lung bases bilaterally, right greater than left. Pleural thickening is noted at the lung bases, left greater than right. No pleural effusions. There is a small new subpleural 3 mm left upper lobe nodule (7:203). A few other scattered smaller micronodules are seen (see peng images). No mass concerning for malignancy is identified. MEDIASTINUM: No mediastinal or hilar lymphadenopathy. Calcification is present in the descending thoracic aorta. Heart size is within normal limits. CORONARY ARTERY CALCIFICATION: Mild to moderate. AXILLA: No lymphadenopathy. UPPER ABDOMEN: Unremarkable. OSSEOUS STRUCTURES: Unremarkable. CT/CT chest wo IV con IMPRESSION: 1. Near-complete resolution of right upper and lower lobe consolidation with some mild residual disease at the right lung base. 2. Emphysematous changes with traction bronchiectasis at the lung bases, right greater than left. 3. New 3 mm left upper lobe nodule. 4. Other incidental findings as described above. According to the UPDATED 2017 Fleischner Society recommendations, the advised follow-up imaging for nodules <6mm in the upper lobes is not necessarily required in low-risk patients. In high-risk patients with a nodule in the upper lobe and/or demonstrating suspicious morphology, an optional CT follow-up at 12 months may be obtained. If stable at 12 months, no further follow-up is recommended.
== END 2023-04-12 16:15 | disposition home or self-care (01) ==
LOC: HO.CT 16:14
PROVIDERS: PCP Internal Medicine; Visit Provider Hospitalist
DX: J18.9 Pneumonia, unspecified organism (principal); R91.1 Solitary pulmonary nodule
CPT/HCPCS: 71250

== ENCOUNTER 2023-04-28 15:32 | Outpatient (AMB) | payer MEDICARE, SELFPAY ==
--- NOTE | 2023-04-28 15:41 | A.OFFVIS_ITS ---
Intake Vital Signs 04/28/23 15:42 Height 5 ft 3 in Weight 127 lb BMI 22.5 Pulse 60 Pulse Source Pulse Oximeter Pulse Oximetry (%) 97 Oxygen Delivery Method Room Air Comment 2 Liters Oxygen([facility]) Intake Visit Reasons: COPD Hay Buckler Required: No Allergies No Known Allergies Allergy (Verified 04/28/23 15:43) HPI HPI Comments History of Present Illness Details The patient is a 82 y/o man with a history of COPD with chronic respiratory failure on oxygen. He also uses a BiPAP at night for his respiratory failure due to his COPD. He did have a trilogy noninvasive ventilator for some time but he did not tolerated. In the meantime he also has bronchiectasis with significant mucus production. It has been stable at this point with daily mucus. The mucus is to be green in color. He did have a flutter valve although he does not have 1 right now. We talked about the importance of performing CPT with neb treatments and with flutter valve. He does not want to use any medications so therefore we could try sodium chloride nebulized treatments. He continues to use the oxygen. At this point I would like him to stay on the liquid oxygen. This has been very effective for him. 05/01/2021 the patient is here for a pulmonary follow-up visit. He is doing about the same. Complaining about his back pain. Recently had a cortisone shot without any significant improvement. Now he is considering another procedure with pain specialist. At this point the patient is medically optimized from a pulmonary standpoint. He did have an ABG which is reassuring demonstrating a chronic respiratory acidosis with a pCO2 of 54 mmHg. This is actually very stable for him as he has been at this level for 8-10 years. He has been on BiPAP with good response. He continues with the oxygen with the conserving valve. It is difficult for him to carry the oxygen tanks it does not given min of portability outside of the home. Apparently he was already approved for the portable oxygen concentrator in of just waiting for delivery from his [employer] company. Will try to assist with this process. He also had a chest x-ray which we personally reviewed demonstrating persistent left-sided atelectasis. He did have surgery on the lung many years ago. He continues on the azithromycin 3 times a week. He knows to get EKGs regularly to monitor the QT intervals. 09/09/2021 the patient is here for a hospital follow-up visit. During his last visit he was found to be in acute on chronic respiratory failure. He was taken to [facility] where he was admitted for about 2 weeks. He continues very frail. He did have a viral syndrome, human metapneumovirus. Likely complicated with pneumonia. He required high levels of oxygen via high- flow and also was using the BiPAP at nighttime and also during the daytime. The patient was slow to recover. Because of his significant respiratory failure he [facility] there he spent 2 weeks he started to improve but still was very weak. From there he was transferred to a local rehab where he spent another couple weeks. 9 cm home. He is using his noninvasive ventilator at nighttime. In addition to that he continues his oxygen therapy. He continues with a productive cough. His major issue right now is his back pain. His are for him to cough because of the pain. He was supposed to undergo a procedure with the pain clinic. However, due to the circumstances it had to be postponed. At this time I believe the patient she would few months in order to fully recover before undergoing any semi-invasive interventions. He continues to be on 5 mg of prednisone. Can hopefully taper him off slowly to make sure that he does not have any rebound symptoms. We did review his recent blood work which included a Chem 7 with a bicarb of 33 which is reassuring. will plan to check additional blood work including a venous gas for his next visit in 6-8 months. 10/27/2021 the patient is here for a pulmonary follow-up visit. Overall the patient is doing little better. Respiratory status has been slowly improving. He did try to get chest for his back pain but they were not very effective. Continues to struggle with back pain at this time. He is also using his noninvasive ventilator, iVAPS. Patient has been having difficulty tolerating it 1st above because the pressures are too high and also he cannot find a comfortable mask. He has tried multiple masks. The last mask he got was a foam mask and unfortunately it was manipulated and broken. Now he does not have that working mask. I did have an F 30 30i mask available that I did provide to him so he can start using it hopefully this mass will fit better and also will avoid eating too much irritation to the top of the nose. He did undergo blood work including of chemistries with normal potassium and also his CBC was otherwise normal except for slight mild anemia with hemoglobin 11 5. in addition to that he had a venous gas demonstrating a pCO2 of 66 mmHg he a 7.33. Explained to the daughter that this is hard to compare to his a serial blood gas. However, it goes to show that needs to uses noninvasive ventilator every night. Because of the nasal irritation has not been using in a couple days. I am hopeful that with the new mask he tolerates that better. in addition to that I did adjust the ventilatory settings by; decreasing maximum expiratory pressure to 12, decrease in maximum inspiratory pressure to 20, decreasing respiratory rate from 15 to 12. the patient will try the new settings and will follow-up and couple months to review response to therapy. He is to bring his machine with him. I will request a download from his company. In addition to that the patient does need to have a humidifier added to his ventilator to minimize dryness in the discomfort. 12/24/2021 the patient is here for a pulmonary follow-up visit. Since we last spoke the patient has been doing better. He has been tolerating the changes on his noninvasive ventilator. He has been using the noninvasive ventilator with 3 L nasal cannula. He did undergo an overnight oximetry which we did request multiple times some José Miguel but did not provide us with the results. Therefore will going to have to get the results in that the patient now the results. He still struggling with not getting supplies for his noninvasive ventilator. Recently José Miguel did go to his house in the year assure him that he is going to be able to get the supplies soon. The cough has improved. The patient continues on his current respiratory regimen with good results. He continues on the Trelegy daily. Will follow up with the overnight oximetry. If in the the patient continues to have some degree of hypoxia then we had to further adjust the ventilator. My suspicion is that he is doing well with current settings. His last ABG done in October 2021 was reassuring with compensated chronic hypercarbic respiratory failure. 04/29/2022 the patient is here for a pulmonary follow-up visit. Overall the patient is doing about the same. He is having a productive cough. The cough is bringing up yellowish phlegm which is about the same frequency and consistency. He is aware that if is to change colors freak N/C and consistency he can call so we can treated. He continues on the azithromycin 3 times a week in the meantime. He continues use the noninvasive ventilator. Seems to be sandra erating better with current settings. In addition to that the patient has been using the Trelegy inhaler with good effect. He continues use the oxygen as well. He has major issues his back pain. He is agreeable to following up with a pain specialist in order to have better back pain control. He is open to getting a trial stimulator to see if this provides relief. If it does will need to have more of a surgical implantation. As long as he does not require general anesthesia this will be something reasonable for the patient. He is 81 he is somewhat frail. But, he would like improved pain management. 08/05/2022 the patient is here for a pulmonary follow-up visit. The patient is doing well from a respiratory status. He continues to have productive cough with greenish yellowish phlegm regularly. Typically this getting better in the morning and then worse during the day. He did undergo a trial for his spinal stimulator and this was effective about 70% which is happy about. Afterwards he developed abdominal pain and has had issues with some epigastric discomfort. He was evaluated by primary care and did have blood work which was all reassuring. Still though is tender to the touch. I have get an x-ray to make sure that he does not have anything significant specially since he is going to have surgery scheduled for tomorrow for the spinal stimulator permanent procedure. He continues using noninvasive ventilator at nighttime. Appears to be affecting beneficial and also using the nebulizers twice a day also with good effect. 12/02/2022 the patient is here for a pulmonary follow-up visit. Recently had a cold and he actually did fairly well without any worsening respiratory symptoms. The family was very happy about that. He has been using his respiratory therapy with good effect. His major complaint is very dry mouth with the point that he is tongue sticks to his sides and he has a hard time speaking. Explained to them that this partly due to his age and likely pH difference in his oral mucosa. In addition that it could be medication related. He does take ipratropium nasal spray will have them stop that. The patient also will start the budesonide for now to see if he has any relief. He is also been on Lasix. The patient has a low diastolic pressure 50 and has had low blood pressures before. The patient does not appear to be volume overloaded. Therefore I did request that they hold the Lasix for now and wait him on a daily basis. If he gains a couple lb that he should be start the Lasix but only half dose. And then if he develops any significant lower extremity edema he should just increase the Lasix back to the full dose of 20 mg. but at this point I do believe that he is intravascularly depleted in this can also cause his mouth to be also dry. He is using the noninvasive ventilator at nighttime he does have humidification with it and has been adjusted accordingly. He is still coughing up phlegm. His respiratory exam is reassuring. I did provide him with a sputum cup for sputum culture to make sure that he is not harboring any concerning bacterial pathogens. For now he will continue with current respiratory therapy and will minimize on some of the medications to hopefully help his significant drowsiness. In regards to the back pain he did get the pain stimulator. Is currently being adjusted further to provide him with additional relief. Back in July he did have a chest x-ray demonstrating some minimal changes atelectasis slight opacities and pleural effusion. Therefore the patient will come back at some point get a repeat x-ray as well. 01/20/2023 the patient is here for a pulmonary follow-up visit. He completed the antibiotics both the doxycycline and the Vantin for the multilobar pneumonia including the right upper lobe in the right lower lobe area. He still needing the oxygen although better. While he was in the antibiotics his mucus is fairly clear. Now off the antibiotics he is getting a little yellow she can. The patient has also noticed increasing hypoxia at nighttime. The patient does uses noninvasive ventilator with the oxygen. Will have him get an overnight oximetry to make sure that he is getting adequate oxygenation. Explained to him that this will take at least a couple months to clear specially since he had significant amount of airspace disease. In addition to the looking at the CT scan myself there is a nodular component to the right upper lobe airspace disease. Therefore want a repeat the CT scan in 3 months to make sure there is complete resolution of this process and make sure there is no concomitant malignant process within that. The patient will also provide incentive spirometer so he can work on deep breathing exercises any already has a flutter device to help him with mucus clearance. He will continue with current respiratory therapy as prescribed. The patient will follow-up in [address] scan. The patient also had blood work. It appears that his left shift has improved and other by our labs are pending. Will follow-up in 3 months time. The patient develops any worsening symptoms he is to call the office for an earlier assessment. 04/28/2023 the patient is here for a pulmonary follow-up visit. The patient overall has been feeling better from a respiratory status. He still has a chronic cough with significant amount of phlegm but he is at baseline. Can easily expectorating. The patient also has been using his respiratory therapy good effect. He is also using the noninvasive ventilator at nighttime for the whole night. The therapy has been affecting beneficial. The patient also had a CT scan of the chest to follow-up with significant pneumonia it appears that he has a near complete resolution of the airspace disease. However, likely to result in some scarring in that area. Also the CT scan demonstrated small subcentimeter pulmonary nodule which appears to be new. Therefore will continue to discuss as far as follow-up. May want to do a CT scan in a year's time his back pain still an issue. He does have the stimulator now. He still needs to be adjusted further. He will continue to work with pain management. 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 Disc degeneration, lumbar Restless leg syndrome Dyspnea Laryngeal disorder Bradycardia Back pain Chronic respiratory failure Bronchiectasis COPD (chronic obstructive pulmonary disease) Surgical History History of back surgery Hx of cholecystectomy Hx of hernia repair Hx of cataract extraction History of lobectomy of lung Hx of bone marrow donation Hx of neck surgery Hx of knee surgery Hx of hemorrhoidectomy Hx of appendectomy H/O colonoscopy History of cardiac cath Social History Are you a primary point of care specialist to a significant other at home: No Do you presently have visiting nurse or other home services: No Patient Tobacco Use Status: Former Tobacco user Quit Date: 1998 Advance Directives Date on File: 07/28/21 Review of Systems Const Denies fever(s) and Denies night sweats Eyes Denies change in vision and Denies diplopia ENT Reports Normal hearing present, Denies dizziness and Reports dry mouth Card Denies chest pain, Denies dyspnea and Reports dyspnea on exertion Resp Reports chest congestion, Reports cough, Denies excessive phlegm production, Denies pain with cough, Denies dyspnea, Reports dyspnea on exertion, Denies wheezing and Denies other (On oxygen up to 3 L a minute.) GI Denies abdominal pain Musc Reports as per HPI, Reports abnormal gait, Reports back pain, Reports myalgias, Reports atrophy and Reports arthralgias Neuro Reports Normal hearing present, Denies Neuro-related abnormal movements, Reports abnormal gait, Denies dizziness and Denies Sensory deficit (Neuro) Psych Denies no additional complaints Ruel/Lymph Denies easy bleeding Aller/Immun Denies wheezing Physical Exam Vital Signs: Last Vital Signs Pulse 60 04/28/23 15:42 Pulse Ox 97 04/28/23 15:42 Oxygen Delivery Method Room Air 04/28/23 15:42 BMI result Body Mass Index 22.5 Const General: comfortable, no acute distress and well groomed HEENT Head: Yes normal to inspection General nose exam: Abnormal nasal septum present other (sore on the left) Neck Neck: Yes supple Chest Chest palpation & inspection: normal inspection of the chest Resp Auscultation: no crackles, no wheezes and diminished lung sounds Cardio Rate: regular rate Rhythm: regular rhythm Heart sounds: S1 normal heart sound present and S2 normal heart sound present General: Yes no CVA tenderness Back/Spine/Pelvis Back: no CVA tenderness Neuro General: moves all extremities, no focal motor deficits and Unable to assess gait Cranial nerves: Yes Normal hearing present Gait exam (Neuro): Unable to assess gait Motor exam (neuro): 5/5 motor strength present throughout and Pronator motor f unction not present Sensory Exam: No Sensory deficit (Neuro) Extrem General: Yes no clubbing, cyanosis or edema Results Reviewed Results Reviewed: [address] [address] [address] Scan Report Signed Patient: Paul Sellers MR#: [id number] : 1940 Acct:[id number] Age/Sex: 82 / M ADM Date: 04/12/23 Loc: HO.CT Attending Dr: Gavin Diaz MD Ordering Physician: Gavin Diaz MD Date of Service: 04/12/23 Procedure(s): CT chest wo IV con Accession Number(s): [id number] cc: Germain Dennis MD; Gavin Diaz MD~ EXAMINATION: CT CHEST WITHOUT CONTRAST CLINICAL INFORMATION: Pneumonia COMPARISON: CT angiogram 12/30/2022. TECHNIQUE: Multidetector volumetric CT imaging of the chest was done. Axial MIP volume rendering provided. Sagittal and coronal reformatted images were obtained. This CT examination was performed using dose optimization techniques as appropriate, variously including the following: *Automated exposure control *Adjustment of mA and/or kV according to patient size (this includes techniques or standardized protocols for targeted exams where dose is matched to indication/reason for exam; i.e. extremities or head) *Use of iterative reconstruction technique DLP: 126 mGy-cm FINDINGS: LUNGS AND PLEURA: Emphysematous changes are present throughout the lungs. The right lower lobe consolidation as well as the right upper lobe consolidation seen on the prior 12/30/2022 study has nearly completely resolved with some mild residual disease especially at the right lung base. There is traction bronchiectasis seen at the lung bases bilaterally, right greater than left. Pleural thickening is noted at the lung bases, left greater than right. No pleural effusions. There is a small new subpleural 3 mm left upper lobe nodule (7:203). A few other scattered smaller micronodules are seen (see peng images). No mass concerning for malignancy is identified. MEDIASTINUM: No mediastinal or hilar lymphadenopathy. Calcification is present in the descending thoracic aorta. Heart size is within normal limits. CORONARY ARTERY CALCIFICATION: Mild to moderate. AXILLA: No lymphadenopathy. UPPER ABDOMEN: Unremarkable. OSSEOUS STRUCTURES: Unremarkable. CT/CT chest wo IV con IMPRESSION: 1. Near-complete resolution of right upper and lower lobe consolidation with some mild residual disease at the right lung base. 2. Emphysematous changes with traction bronchiectasis at the lung bases, right greater than left. 3. New 3 mm left upper lobe nodule. 4. Other incidental findings as described above. According to the UPDATED 2017 Fleischner Society recommendations, the advised follow-up imaging for nodules <6mm in the upper lobes is not necessarily required in low-risk patients. In high-risk patients with a nodule in the upper lobe and/or demonstrating suspicious morphology, an optional CT follow-up at 12 months may be obtained. If stable at 12 months, no further follow-up is recommended. Dictated By: Isreal Ahn MD Signed By: <Electronically signed by Isreal Ahn MD in OV> 04/14/23 1553 DD/ 1714 TD/TT: Economic Analyst: SS Assessment & Plan Assessment & Plan (1) Chronic respiratory failure: Code(s): J96.10 - Chronic respiratory failure, unspecified whether with hypoxia or hypercapnia Qualifiers: Respiratory failure complication: hypoxia and hypercapnia Qualified Code(s): J96.11 - Chronic respiratory failure with hypoxia; J96.12 - Chronic respiratory failure with hypercapnia (2) COPD (chronic obstructive pulmonary disease): Code(s): J44.9 - Chronic obstructive pulmonary disease, unspecified Qualifiers: COPD type: chronic bronchitis Chronic bronchitis type: mucopurulent Qualified Code(s): J41.1 - Mucopurulent chronic bronchitis (3) Bronchiectasis: Code(s): J47.9 - Bronchiectasis, uncomplicated Qualifiers: Bronchiectasis type: uncomplicated Qualified Code(s): J47.9 - Bronchiectasis, uncomplicated (4) Dyspnea: Code(s): R06.00 - Dyspnea, unspecified Qualifiers: Dyspnea type: shortness of breath Qualified Code(s): R06.02 - Shortness of breath (5) Chronic pain syndrome: Code(s): G89.4 - Chronic pain syndrome (6) Pneumonia: Comment: resolved Code(s): J18.9 - Pneumonia, unspecified organism Qualifiers: Laterality: right Lung location: unspecified part of lung Pneumonia type: due to unspecified organism Qualified Code(s): J18.9 - Pneumonia, unspecified organism (7) Pulmonary nodule: Comment: 3mm Code(s): R91.1 - Solitary pulmonary nodule Plan Continue Trelegy, rinse well CPT with nebs and acapella valve continue oxygen supplementation iVAPS and 3 L oxygen, NIV at night pain management s/p pain stimulator sputum cx repeat CT chest 12 months follow-up in 6 months Coding Level of Care Code Est Pt Level 4 (53379) Diagnoses Chronic respiratory failure with hypoxia and hypercapnia J96.11; J96.12 Respiratory failure complication: hypoxia and hypercapnia Mucopurulent chronic bronchitis J41.1 COPD type: chronic bronchitis Chronic bronchitis type: mucopurulent Bronchiectasis without complication J47.9 Bronchiectasis type: uncomplicated Shortness of breath R06.02 Dyspnea type: shortness of breath Chronic pain syndrome G89.4 Pneumonia of right lung due to infectious organism, unspecified part of lung J18.9 Laterality: right Lung location: unspecified part of lung Pneumonia type: due to unspecified organism Pulmonary nodule R91.1 Time Spent (min) 18
[2023-04-28 15:42] VITALS: PULSE 60; O2SAT 97; BMI 22.5
== END 2023-04-28 16:10 | disposition home or self-care (01) ==
PROVIDERS: PCP Internal Medicine; Visit Provider Hospitalist
DX: J96.11 Chronic respiratory failure with hypoxia (principal); J96.12 Chronic respiratory failure with hypercapnia; J41.1 Mucopurulent chronic bronchitis; R91.1 Solitary pulmonary nodule; G89.4 Chronic pain syndrome; J18.9 Pneumonia, unspecified organism
CPT/HCPCS: 99214

== ENCOUNTER → 2023-04-28 15:32 | Outpatient (BNVA) | payer MEDICARE, SELFPAY | PROVIDERS: PCP Internal Medicine; Visit Provider Hospitalist | DX: J96.12 Chronic respiratory failure with hypercapnia (principal); J96.11 Chronic respiratory failure with hypoxia; J41.1 Mucopurulent chronic bronchitis; J47.9 Bronchiectasis, uncomplicated; J18.9 Pneumonia, unspecified organism; R91.1 Solitary pulmonary nodule; R06.02 Shortness of breath; G89.4 Chronic pain syndrome | CPT/HCPCS: 99212 ==

== ENCOUNTER 2023-11-01 15:20 | Outpatient (AMB) | payer MEDICARE, SELFPAY ==
[2023-11-01 15:31] VITALS: BP 118/70; PULSE 60; O2SAT 96; BMI 22.1
--- NOTE | 2023-11-01 15:31 | A.OFFVIS_ITS ---
Vital Signs 11/01/23 15:31 Height 5 ft 3 in Weight 125 lb BMI 22.1 BP 118/70 Blood Pressure Location Rt brachial Position Sitting Pulse 60 Pulse Source Pulse Oximeter Pulse Oximetry (%) 96 Oxygen Delivery Method Room Air Comment 2 Liters Oxygen([facility]) Intake Visit Reasons: COPD Interventional Pain Physician Required: No Allergies No Known Allergies Allergy (Verified 11/01/23 15:33) HPI Comments Details: The patient is a 82 y/o man with a history of COPD with chronic respiratory fa ilure on oxygen. He also uses a BiPAP at night for his respiratory failure due to his COPD. He did have a trilogy noninvasive ventilator for some time but he did not tolerated. In the meantime he also has bronchiectasis with significant mucus production. It has been stable at this point with daily mucus. The mucus is to be green in color. He did have a flutter valve although he does not have 1 right now. We talked about the importance of performing CPT with neb treatments and with flutter valve. He does not want to use any medications so therefore we could try sodium chloride nebulized treatments. He continues to use the oxygen. At this point I would like him to stay on the liquid oxygen. This has been very effective for him. 08/05/2022 the patient is here for a pulmonary follow-up visit. The patient is doing well from a respiratory status. He continues to have productive cough with greenish yellowish phlegm regularly. Typically this getting better in the morning and then worse during the day. He did undergo a trial for his spinal stimulator and this was effective about 70% which is happy about. Afterwards he developed abdominal pain and has had issues with some epigastric discomfort. He was evaluated by primary care and did have blood work which was all reassuring. Still though is tender to the touch. I have get an x-ray to make sure that he does not have anything significant specially since he is going to have surgery scheduled for tomorrow for the spinal stimulator permanent procedure. He continues using noninvasive ventilator at nighttime. Appears to be affecting beneficial and also using the nebulizers twice a day also with good effect. 12/02/2022 the patient is here for a pulmonary follow-up visit. Recently had a cold and he actually did fairly well without any worsening respiratory symptoms. The family was very happy about that. He has been using his respiratory therapy with good effect. His major complaint is very dry mouth with the point that he is tongue sticks to his sides and he has a hard time speaking. Explained to them that this partly due to his age and likely pH difference in his oral mucosa. In addition that it could be medication related. He does take ipratropium nasal spray will have them stop that. The patient also will start the budesonide for now to see if he has any relief. He is also been on Lasix. The patient has a low diastolic pressure 50 and has had low blood pressures before. The patient does not appear to be volume overloaded. Therefore I did request that they hold the Lasix for now and wait him on a daily basis. If he gains a couple lb that he should be start the Lasix but only half dose. And then if he develops any significant lower extremity edema he should just increase the Lasix back to the full dose of 20 mg. but at this point I do believe that he is intravascularly depleted in this can also cause his mouth to be also dry. He is using the noninvasive ventilator at nighttime he does have humidification with it and has been adjusted accordingly. He is still coughing up phlegm. His respiratory exam is reassuring. I did provide him with a sputum cup for sputum culture to make sure that he is not harboring any concerning bacterial pathogens. For now he will continue with current respiratory therapy and will minimize on some of the medications to hopefully help his significant drowsiness. In regards to the back pain he did get the pain stimulator. Is currently being adjusted further to provide him with additional relief. Back in July he did have a chest x-ray demonstrating some minimal changes atelectasis slight opacities and pleural effusion. Therefore the patient will come back at some point get a repeat x-ray as well. 01/20/2023 the patient is here for a pulmonary follow-up visit. He completed the antibiotics both the doxycycline and the Vantin for the multilobar pneumonia including the right upper lobe in the right lower lobe area. He still needing the oxygen although better. While he was in the antibiotics his mucus is fairly clear. Now off the antibiotics he is getting a little yellow she can. The patient has also noticed increasing hypoxia at nighttime. The patient does uses noninvasive ventilator with the oxygen. Will have him get an overnight oximetry to make sure that he is getting adequate oxygenation. Explained to him that this will take at least a couple months to clear specially since he had significant amount of airspace disease. In addition to the looking at the CT scan myself there is a nodular component to the right upper lobe airspace disease. Therefore want a repeat the CT scan in 3 months to make sure there is complete resolution of this process and make sure there is no concomitant malignant process within that. The patient will also provide incentive spirometer so he can work on deep breathing exercises any already has a flutter device to help him with mucus clearance. He will continue with current respiratory therapy as prescribed. The patient will follow-up in [address] scan. The patient also had blood work. It appears that his left shift has improved and other by our labs are pending. Will follow-up in 3 months time. The patient develops any worsening symptoms he is to call the office for an earlier assessment. 04/28/2023 the patient is here for a pulmonary follow-up visit. The patient overall has been feeling better from a respiratory status. He still has a chronic cough with significant amount of phlegm but he is at baseline. Can easily expectorating. The patient also has been using his respiratory therapy good effect. He is also using the noninvasive ventilator at nighttime for the whole night. The therapy has been affecting beneficial. The patient also had a CT scan of the chest to follow-up with significant pneumonia it appears that he has a near complete resolution of the airspace disease. However, likely to result in some scarring in that area. Also the CT scan demonstrated small subcentimeter pulmonary nodule which appears to be new. Therefore will continue to discuss as far as follow-up. May want to do a CT scan in a year's time his back pain still an issue. He does have the stimulator now. He still needs to be adjusted further. He will continue to work with pain management. 11/01/2023 the patient is here for a pulmonary follow-up visit. Overall he is doing fairly well. He did have bouts of C diff colitis. He was having significant diarrhea. He was treated for. His breast worker felt that it was okay for him to continue the azithromycin. As this has been helpful with his bronchiectasis and chronic bronchitis. The patient also has been using his nebulizer and also respiratory medications with good effect. Also continues with his oxygen. He has been using the noninvasive ventilator at nighttime. This has been affecting beneficial. Does use it for more than 4 hours a night. His major issue still the back issue. Hard for him to ambulate. Still getting short of breath with minimal activity. The patient did have an overnight oximetry sometime ago done by José Miguel. We never got the results. We did request from José Miguel and will let him know once we have them available. But for now he will continue using 3 L of oxygen at nighttime with astral. His last CT scan of the chest was back in 04/12/2023. His airspace disease had improved although he did have a new pulmonary nodule. Her need to have a follow-up CT scan for that. Will follow-up sometime in March after his CT scan. If he has any issues prior to that he will call for an earlier assessment. 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 Disc degeneration, lumbar Restless leg syndrome Dyspnea Laryngeal disorder Bradycardia Back pain Chronic respiratory failure Bronchiectasis COPD (chronic obstructive pulmonary disease) Surgical History History of back surgery Hx of cholecystectomy Hx of hernia repair Hx of cataract extraction History of lobectomy of lung Hx of bone marrow donation Hx of neck surgery Hx of knee surgery Hx of hemorrhoidectomy Hx of appendectomy H/O colonoscopy History of cardiac cath Social History Are you a primary health care social worker to a significant other at home: No Do you presently have visiting nurse or other home services: No Patient Tobacco Use Status: Former Tobacco user Advance Directives Date on File: 07/28/21 Review of Systems Const Denies fever(s) and Denies night sweats Eyes Denies change in vision and Denies diplopia ENT Reports Normal hearing present, Denies dizziness and Reports dry mouth Card Denies chest pain, Denies dyspnea and Reports dyspnea on exertion Resp Reports chest congestion, Reports cough, Denies excessive phlegm production, Denies pain with cough, Denies dyspnea, Reports dyspnea on exertion, Denies wheezing and Denies other (On oxygen up to 3 L a minute.) GI Denies abdominal pain Musc Reports as per HPI, Reports abnormal gait, Reports back pain, Reports myalgias, Reports atrophy and Reports arthralgias Neuro Reports Normal hearing present, Denies Neuro-related abnormal movements, Reports abnormal gait, Denies dizziness and Denies Sensory deficit (Neuro) Psych Denies no additional complaints Ruel/Lymph Denies easy bleeding Aller/Immun Denies wheezing Physical Exam Vital Signs: Last Vital Signs Pulse 60 11/01/23 15:31 BP 118/70 11/01/23 15:31 Pulse Ox 96 11/01/23 15:31 Oxygen Delivery Method Room Air 11/01/23 15:31 BMI result Body Mass Index 22.1 Const General: comfortable, no acute distress and well groomed HEENT Head: Yes normal to inspection General nose exam: Abnormal nasal septum present other (sore on the left) Neck Neck: Yes supple Chest Chest palpation & inspection: normal inspection of the chest Resp Auscultation: no crackles, no wheezes and diminished lung sounds Cardio Rate: regular rate Rhythm: regular rhythm Heart sounds: S1 normal heart sound present and S2 normal heart sound present General: Yes no CVA tenderness Back/Spine/Pelvis Back: no CVA tenderness Neuro General: moves all extremities, no focal motor deficits and Unable to assess gait Cranial nerves: Yes Normal hearing present Gait exam (Neuro): Unable to assess gait Motor exam (neuro): 5/5 motor strength present throughout and Pronator motor function not present Sensory Exam: No Sensory deficit (Neuro) Extrem General: Yes no clubbing, cyanosis or edema Assessment & Plan Assessment & Plan (1) Chronic respiratory failure: Code(s): J96.10 - Chronic respiratory failure, unspecified whether with hypoxia or hypercapnia Category: Medical Qualifiers: Respiratory failure complication: hypoxia and hypercapnia Qualified Code(s): J96.11 - Chronic respiratory failure with hypoxia; J96.12 - Chronic respiratory failure with hypercapnia (2) COPD (chronic obstructive pulmonary disease): Code(s): J44.9 - Chronic obstructive pulmonary disease, unspecified Category: Medical Qualifiers: COPD type: chronic bronchitis Chronic bronchitis type: mucopurulent Qualified Code(s): J41.1 - Mucopurulent chronic bronchitis (3) Bronchiectasis: Code(s): J47.9 - Bronchiectasis, uncomplicated Category: Medical Qualifiers: Bronchiectasis type: uncomplicated Qualified Code(s): J47.9 - Bronchiectasis, uncomplicated (4) Dyspnea: Code(s): R06.00 - Dyspnea, unspecified Category: Medical Qualifiers: Dyspnea type: shortness of breath Qualified Code(s): R06.02 - Shortness of breath (5) Chronic pain syndrome: Code(s): G89.4 - Chronic pain syndrome Category: Medical (6) Pulmonary nodule: Comment: 3mm Code(s): R91.1 - Solitary pulmonary nodule Category: Medical (7) Clostridioides difficile infection: Code(s): A49.8 - Other bacterial infections of unspecified site Category: Medical Plan Continue Trelegy CPT with nebs and acapella valve continue oxygen supplementation iVAPS and 3 L oxygen, NIV at night continue azithromycin MWF, but if any evidence of worsening GI symptoms will consider switching to Doxycycline repeat CT chest 03/2024 follow-up in 6 months Coding Level of Care Code Est Pt Level 4 (47080) Complex EM visit Add On G2211 Diagnoses Chronic respiratory failure with hypoxia and hypercapnia J96.11; J96.12 Respiratory failure complication: hypoxia and hypercapnia Mucopurulent chronic bronchitis J41.1 COPD type: chronic bronchitis Chronic bronchitis type: mucopurulent Bronchiectasis without complication J47.9 Bronchiectasis type: uncomplicated Shortness of breath R06.02 Dyspnea type: shortness of breath Chronic pain syndrome G89.4 Pulmonary nodule R91.1 Clostridioides difficile infection A49.8 Time Spent (min) 17
== END 2023-11-01 16:03 | disposition home or self-care (01) ==
PROVIDERS: PCP Internal Medicine; Visit Provider Hospitalist
DX: J96.11 Chronic respiratory failure with hypoxia (principal); J96.12 Chronic respiratory failure with hypercapnia; J41.1 Mucopurulent chronic bronchitis; R91.1 Solitary pulmonary nodule; A49.8 Other bacterial infections of unspecified site
CPT/HCPCS: 99214; G2211

== ENCOUNTER → 2023-11-01 15:20 | Outpatient (BNVA) | payer MEDICARE, SELFPAY | PROVIDERS: PCP Internal Medicine; Visit Provider Hospitalist | DX: J41.1 Mucopurulent chronic bronchitis (principal); J96.11 Chronic respiratory failure with hypoxia; J96.12 Chronic respiratory failure with hypercapnia; J47.9 Bronchiectasis, uncomplicated; R06.02 Shortness of breath; R91.1 Solitary pulmonary nodule; A49.8 Other bacterial infections of unspecified site; G89.4 Chronic pain syndrome | CPT/HCPCS: 99212 ==

== ENCOUNTER → 2023-12-20 11:59 | Outpatient (BNVA) | payer MEDICARE, SELFPAY | PROVIDERS: PCP Internal Medicine; Visit Provider Anesthesiology ==

== ENCOUNTER 2024-04-27 14:12 | Outpatient (REF) | payer MEDICARE, SELFPAY ==
--- OUTSIDE RECORDS SUMMARY | 2024-04-27 15:53 | XMS_ITS | Clinical Summary ---
Author Organization [facility] it Address [address] [place] [address] Care Team Providers Care Parts Classifier Name Role Phone Germain Dennis MD Primary Care Provider [phone] Medications traZODone (DESYREL) 100 mg tablet TAKE 1 TABLET BY MOUTH EVERYDAY AT BEDTIME 90 tablet 1 01/16/20 24 Active diclofenac (VOLTAREN) 1 % topical gel Apply 2 g topically 2 (two) times a day. 100 g 5 01/23/20 24 Active cholestyramine (QUESTRAN) 4 gram packetIndicati ons:Diarrhea TAKE 1 PACKET (4 G TOTAL) BY MOUTH 3 (THREE) TIMES A DAY WITH MEALS. DISSOLVE IN 8 OZ OF LIQUID AND DRINK BEFORE A MEAL 270 packet 1 02/21/20 24 Active metoprolol tartrate (LOPRESSOR) 25 mg tablet TAKE 1 TABLET BY MOUTH EVERY DAY 90 tablet 1 03/01/19 25 Active rOPINIRole (REQUIP) 2 mg tablet TAKE 1 TABLET BY MOUTH TWICE A DAY 180 tablet 1 04/10/19 25 Active ibandronate (BONIVA) 150 mg tablet TAKE 1 TABLET (150 MG TOTAL) BY MOUTH EVERY 30 (THIRTY) DAYS. 3 tablet 1 04/11/19 25 Active ibandronate (BONIVA) 150 mg tablet Take 1 tablet (150 mg total) by mouth every 30 (thirty) days. 3 tablet 1 04/04/19 25 025 Discontinued Encounters Date Type Department Care Team Description 01/30/2024 Telephone Gastroenterology - [address] [place] [address] Maria R Clark MA from Last 3 Months Surgical History Surgery Date Site/Laterality Comments BACK SURGERY PROCEDURE: HISTORICAL BACK SURGERY CHOLECYSTECTOMY PROCEDURE: HISTORICAL CHOLECYSTECTOMY APPENDECTOMY PROCEDURE: HISTORICAL APPENDECTOMY OTHER SURGICAL HISTORY PROCEDURE: HISTORY OTHER; COMMENT: lung lobectomy BOWEL RESECTION PROCEDURE: HISTORICAL BOWEL RESECTION; COMMENT: small bowel COLONOSCOPY PROCEDURE: HISTORICAL COLONOSCOPY KNEE SURGERY PROCEDURE: HISTORICAL KNEE SURGERY Medical History Medical History Date Comments Anxiety 07/21/2016 DX:Anxiety Bronchiectasis (CMS/HCC) 07/19/2017 DX:Bron chiectasis (HCC) Chronic back pain 03/16/2018 DX:Chronic anita k pain; COMMENT: S/p surgery Chronic respiratory failure with hypoxia ([facility]) 07/19/2017 DX:Chronic respiratory failu re with hypoxia ([facility]) COPD (chronic obstructive pu lmonary disease) ([facility]) 07/19/2017 DX:COPD (chronic obstructive pulmonary disease) ([facility]) GERD (gastroesophageal reflux disease) 07/20/2016 DX:GERD (gastroesophageal reflux disease) 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[facility]) DX: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[facility]) Osteoporosis 11/14/2017 DX:Osteoporosis; COMMENT: H/o compression fracture Requires supplemental oxygen 07/19/2016 DX: Requires supplemental oxygen Restless legs syndrome (RLS) 11/08/2017 DX: Restless legs syndrome (RLS) Social History Tobacco Use Types Packs/Day Years Used Date Smoking Tobacco: Former Smokeless Tobacco: Never Alcohol Use Standard Drinks/Week Comments Yes 0 (1 standard drink = 0.6 oz pur e alcohol) Sex and Gender Information Value Date Recorded Sex Assigned at Not on file Legal Sex Male 3:22 PM EST Gender Identity Not on file Sexual Orientation Not on file Obstetrics History Last Filed Vital Signs Vital Sign Reading Time Taken Comments Blood Pressure 119/60 11/08/2023 10:53 AM EDT Sitting L Arm Pulse 80 11/08/2023 10:53 AM EDT Temperature - - Respiratory Rate - - Oxygen Saturation 92% 05/13/2023 3:5 5 PM EDT oxygen tank on 2 (pulse) Inhaled Oxygen Concentration - - Weight 57.6 kg (127 lb) 11/08/2023 10:5 3 AM EDT Height 160 cm (5' 3 ) 11/08/2023 10:53 AM EDT Body Mass Index 22.5 11/08/2023 10:53 AM EDT Plan of Treatment Health Maintenance Due Date Last Done Comments DTaP,Tdap,and Td Vaccines (1 - Tdap) 12/21/1959 Pneumococcal Vaccine: 50+ Ye ars (1 of 2 - PCV) 12/21/1959 Zoster Vaccines (1 of 2) 1990 RSV Immunization Patients 60 + Years Old (1 - 1-dose 75+ series) 12/21/2015 Depression Screening 01/30/2022 Falls Risk Assessment 01/30/2022 Social Influencers of Health Screening 01/30/2022 COVID-19 Vaccine (1 - 2023-2 5 season) 2023 Influenza Vaccine (#1) 2023 12/08/2017 Cholesterol Screening (Lipid Panel) 08/21/2028 08/22/2023 HIB Vaccines Aged Out No longer eligi ble based on patient's age to complete this topic HPV Vaccines Aged Out No longer eligi ble based on patient's age to complete this topic Hepatitis A Vaccines Aged Out No long er eligible based on patient's age to complete this topic Hepatitis B Vaccines Aged Out No long er eligible based on patient's age to complete this topic IPV Vaccines Aged Out No longer eligi ble based on patient's age to complete this topic MMR Vaccines Aged Out No longer eligi ble based on patient's age to complete this topic Meningococcal ACWY Vaccine Aged Out N o longer eligible based on patient's age to complete this topic Meningococcal B Vacine Aged Out No lo nger eligible based on patient's age to complete this topic RSV Immunization Patients Un christopher 20 months Aged Out No longer eligible b ased on patient's age to complete this topic Varicella Vaccines Aged Out No longer eligible based on patient's age to complete this topic Advance Directives Documents on File Type Date Recorded Patient Magistrate Judge Expl anation Health Care Decision (hx) 07/29/2021 AD MART DIRECTIVE Health Care Decision (hx) 07/29/2021 AD MART DIRECTIVE Health Care Decision (hx) 07/29/2021 AD MART DIRECTIVE Health Care Decision (hx) 07/29/2021 AD MART DIRECTIVE Care Teams Parts Classifier Relationship Specialty Start Date End Date Germain Dennis MD PCP - General Internal Medicine 04/04/18
--- OUTSIDE RECORDS SUMMARY | 2024-04-27 15:53 | XMS_ITS | Clinical Summary ---
Author Organization [facility] Address [address] [place] [address] Care Team Providers Care Satellite Tv Installer Name Role Phone Germain Dennis MD Primary Care Provider Unavailab le Allergies No known active allergies Medications Medication Sig Dispensed Refills Start Date End Date Status albuterol (PROVENTIL) (2.5 MG/3ML) 0.083% nebulizer solution Take 3 mL (2.5 mg total) by nebulization every 6 (six) hours as needed for wheezing. 0 Active albuterol (PROVENTIL) 2.5 MG/0.5ML NEBU nebulizer solution Take 0.5 mL (2.5 mg total) by nebulization. 0 Active azithromycin (ZITHROMAX) 250 MG tablet Take 1 tablet (250 mg total) by mouth. Tue.Wed., Tuesday 0 Active budesonide (PULMICORT) 0.5 MG/2ML nebulizer solution Take 2 mL (0.5 mg total) by nebulization every 12 (twelve) hours. 0 Active Diclofenac Sodium 1 % GEL Apply topically. 0 Active furosemide (LASIX) 20 MG tablet Take 1 tablet (20 mg total) by mouth 2 (two) times a day. 0 Active gabapentin (NEURONTIN) 300 MG capsule Take 1 capsule (300 mg total) by mouth 3 (three) times a day. 0 Active ibandronate (BONIVA) 150 MG tablet Take 1 tablet (150 mg total) by mouth every 30 (thirty) days. Take in AM with glass of water prior to food, don't lie down for 30 minutes. 0 Active ipratropium (ATROVENT) 0.06 % nasal spray spray or apply 2 sprays inside Nose 4 (four) times a day. 0 Active Melatonin 12 MG TABS Take by mouth. 0 Active metoprolol tartrate (LOPRESSOR) 25 MG tablet Take 1 tablet (25 mg total) by mouth 2 (two) times a day. 0 Active montelukast (SINGULAIR) 10 MG tablet Take 1 tablet (10 mg total) by mouth every night at bedtime. 0 Active pantoprazole (PROTONIX) 40 MG tablet Take 1 tablet (40 mg total) by mouth every morning on an empty stomach. 0 Active rOPINIRole (REQUIP) 2 MG tablet Take 1 tablet (2 mg total) by mouth every night at bedtime. 0 Active traZODone (DESYREL) 100 MG tablet Take 1 tablet (100 mg total) by mouth every night at bedtime. 0 Active Fluticasone-Umeclid in-Vilant (Trelegy Ellipta) 200-62.5-25 MCG/ACT AEPB Inhale into the lungs. 0 Active acetaminophen (TYLENOL) 500 MG tablet Take by mouth every 6 (six) hours as needed. 0 Active Active Problems Problem Noted Date Diagnosed Date Other specified anemias 10/09/2022 Social History Tobacco Use Types Packs/Day Years Used Date Smoking Tobacco: Never Assessed Sex and Gender Information Value Date Recorded Sex Assigned at Not on file Gender Identity Not on file Sexual Orientation Not on file Job Start Date Occupation Industry Not on file Not on file Not on file Last Filed Vital Signs Vital Sign Reading Time Taken Comments Blood Pressure 127/49 05/13/2023 3:55 PM EDT Pulse 61 05/13/2023 3:55 PM EDT Temperature 36.9 ??C (98.4 ??F) 05/13/2023 3 :55 PM EDT Respiratory Rate - - Oxygen Saturation 92% 05/13/2023 3:5 5 PM EDT oxygen tank on 2 (pulse) Inhaled Oxygen Concentration - - Weight 56.7 kg (125 lb) 05/13/2023 3:55 PM EDT Height 160 cm (5' 3 ) 05/13/2023 3:55 PM EDT Body Mass Index 22.14 05/13/2023 3:55 PM EDT Plan of Treatment Health Maintenance Due Date Last Done Comments COVID-19 Vaccine (#1) 06/20/1941 Depression Screening 1952 Preventative Health Evaluation 1958 DTap / Tdap / Td (1 - Tdap) 12/21/1959 Shingrix-Zoster Vaccine (1 of 2) 1990 Fall Risk Assessment 2005 Pneumococcal Vaccine (1 of 1 - PCV) 2005 RSV Adult > 60+ Yrs or Pregn ant (1 - 1-dose 75+ series) 12/21/2015 Influenza Vaccine (#1) 2023 12/08/2017 Hepatitis B Vaccines Aged Out No long er eligible based on patient's age to complete this topic RSV Ped < 20 months Aged Out No longe r eligible based on patient's age to complete this topic Care Teams Satellite Tv Installer Relationship Specialty Start Date End Date Germain Dennis MD PCP - General Internal Medicine 09/22/22
== END 2024-04-27 14:13 | disposition home or self-care (01) ==
LOC: HO.CT 14:12
PROVIDERS: PCP Internal Medicine; Visit Provider Hospitalist
DX: R91.1 Solitary pulmonary nodule (principal)
CPT/HCPCS: 71250

== ENCOUNTER → 2024-04-27 14:14 | Outpatient (BNV) | payer MEDICARE, SELFPAY | PROVIDERS: PCP Internal Medicine; Visit Provider Radiology Diagnostic Radiology | DX: I25.10 Atherosclerotic heart disease of native coronary artery without angina pectoris (principal); R91.1 Solitary pulmonary nodule | CPT/HCPCS: 71250 ==

== ENCOUNTER 2024-05-03 15:07 | Outpatient (AMB) | payer MEDICARE, SELFPAY ==
[2024-05-03 15:15] VITALS: BP 120/52; PULSE 81; O2SAT 96; BMI 21.5
--- NOTE | 2024-05-03 15:15 | MHC.OFFVIS ---
Vital Signs 05/03/24 15:15 Height 5 ft 3 in Weight 121 lb 4.068 oz BMI 21.5 BP 120/52 L Blood Pressure Location Lt brachial Position Sitting Pulse 81 Pulse Source Pulse Oximeter Pulse Oximetry (%) 96 Oxygen Delivery Method Nasal Cannula Oxygen Flow Rate 2 Intake Visit Reasons: Pulmonary Nodule/CT Follow Up Allergies No Known Allergies Allergy (Verified 05/03/24 15:19) HPI Comments Details: The patient is a 83 y/o man with a history of COPD with chronic respiratory failure on oxygen. He also uses a BiPAP at night for his respiratory failure due to his COPD. He did have a trilogy noninvasive ventilator for some time but he did not tolerated. In the meantime he also has bronchiectasis with significant mucus production. It has been stable at this point with daily mucus. The mucus is to be green in color. He did have a flutter valve although he does not have 1 right now. We talked about the importance of performing CPT with neb treatments and with flutter valve. He does not want to use any medications so therefore we could try sodium chloride nebulized treatments. He continues to use the oxygen. At this point I would like him to stay on the liquid oxygen. This has been very effective for him. 08/05/2022 the patient is here for a pulmonary follow-up visit. The patient is doing well from a respiratory status. He continues to have productive cough with greenish yellowish phlegm regularly. Typically this getting better in the morning and then worse during the day. He did undergo a trial for his spinal stimulator and this was effective about 70% which is happy about. Afterwards he developed abdominal pain and has had issues with some epigastric discomfort. He was evaluated by primary care and did have blood work which was all reassuring. Still though is tender to the touch. I have get an x-ray to make sure that he does not have anything significant specially since he is going to have surgery scheduled for tomorrow for the spinal stimulator permanent procedure. He continues using noninvasive ventilator at nighttime. Appears to be affecting beneficial and also using the nebulizers twice a day also with good effect. 12/02/2022 the patient is here for a pulmonary follow-up visit. Recently had a cold and he actually did fairly well without any worsening respiratory symptoms. The family was very happy about that. He has been using his respiratory therapy with good effect. His major complaint is very dry mouth with the point that he is tongue sticks to his sides and he has a hard time speaking. Explained to them that this partly due to his age and likely pH difference in his oral mucosa. In addition that it could be medication related. He does take ipratropium nasal spray will have them stop that. The patient also will start the budesonide for now to see if he has any relief. He is also been on Lasix. The patient has a low diastolic pressure 50 and has had low blood pressures before. The patient does not appear to be volume overloaded. Therefore I did request that they hold the Lasix for now and wait him on a daily basis. If he gains a couple lb that he should be start the Lasix but only half dose. And then if he develops any significant lower extremity edema he should just increase the Lasix back to the full dose of 20 mg. but at this point I do believe that he is intravascularly depleted in this can also cause his mouth to be also dry. He is using the noninvasive ventilator at nighttime he does have humidification with it and has been adjusted accordingly. He is still coughing up phlegm. His respiratory exam is reassuring. I did provide him with a sputum cup for sputum culture to make sure that he is not harboring any concerning bacterial pathogens. For now he will continue with current respiratory therapy and will minimize on some of the medications to hopefully help his significant drowsiness. In regards to the back pain he did get the pain stimulator. Is currently being adjusted further to provide him with additional relief. Back in July he did have a chest x-ray demonstrating some minimal changes atelectasis slight opacities and pleural effusion. Therefore the patient will come back at some point get a repeat x-ray as well. 01/20/2023 the patient is here for a pulmonary follow-up visit. He completed the antibiotics both the doxycycline and the Vantin for the multilobar pneumonia including the right upper lobe in the right lower lobe area. He still needing the oxygen although better. While he was in the antibiotics his mucus is fairly clear. Now off the antibiotics he is getting a little yellow she can. The patient has also noticed increasing hypoxia at nighttime. The patient does uses noninvasive ventilator with the oxygen. Will have him get an overnight oximetry to make sure that he is getting adequate oxygenation. Explained to him that this will take at least a couple months to clear specially since he had significant amount of airspace disease. In addition to the looking at the CT scan myself there is a nodular component to the right upper lobe airspace disease. Therefore want a repeat the CT scan in 3 months to make sure there is complete resolution of this process and make sure there is no concomitant malignant process within that. The patient will also provide incentive spirometer so he can work on deep breathing exercises any already has a flutter device to help him with mucus clearance. He will continue with current respiratory therapy as prescribed. The patient will follow-up in [address] scan. The patient also had blood work. It appears that his left shift has improved and other by our labs are pending. Will follow-up in 3 months time. The patient develops any worsening symptoms he is to call the office for an earlier assessment. 04/28/2023 the patient is here for a pulmonary follow-up visit. The patient overall has been feeling better from a respiratory status. He still has a chronic cough with significant amount of phlegm but he is at baseline. Can easily expectorating. The patient also has been using his respiratory therapy good effect. He is also using the noninvasive ventilator at nighttime for the whole night. The therapy has been affecting beneficial. The patient also had a CT scan of the chest to follow-up with significant pneumonia it appears that he has a near complete resolution of the airspace disease. However, likely to result in some scarring in that area. Also the CT scan demonstrated small subcentimeter pulmonary nodule which appears to be new. Therefore will continue to discuss as far as follow-up. May want to do a CT scan in a year's time his back pain still an issue. He does have the stimulator now. He still needs to be adjusted further. He will continue to work with pain management. 11/01/2023 the patient is here for a pulmonary follow-up visit. Overall he is doing fairly well. He did have bouts of C diff colitis. He was having significant diarrhea. He was treated for. His transportation specialist felt that it was okay for him to continue the azithromycin. As this has been helpful with his bronchiectasis and chronic bronchitis. The patient also has been using his nebulizer and also respiratory medications with good effect. Also continues with his oxygen. He has been using the noninvasive ventilator at nighttime. This has been affecting beneficial. Does use it for more than 4 hours a night. His major issue still the back issue. Hard for him to ambulate. Still getting short of breath with minimal activity. The patient did have an overnight oximetry sometime ago done by [facility]. We never got the results. We did request from [facility] and will let him know once we have them available. But for now he will continue using 3 L of oxygen at nighttime with astrbalwinder. His last CT scan of the chest was back in 04/12/2023. His airspace disease had improved although he did have a new pulmonary nodule. Her need to have a follow-up CT scan for that. Will follow-up sometime in March after his CT scan. If he has any issues prior to that he will call for an earlier assessment. 05/03/2024 the patient is here for a pulmonary follow-up visit. Overall the patient has been doing okay. Although he continues with diarrhea. Will go ahead and stop his azithromycin at this time. Will try him on doxycycline. In addition to that he did have a CT scan of the chest which we personally reviewed. The report was reassuring that everything was stable. Although he appears to have some dynamic airway obstruction in the major airways suggesting some degree of bronchomalacia. Although can not rule out an obstructive process. In addition to that there appears to be little more airspace disease in the right base. This does bring up the possibility of micro aspirations. Also with the bronchomalacia is hard for him to expectorating clear secretions. The patient is also having some pain behind the years bringing up the question of mastoiditis. [id number] severity. Doxycycline may also help with this. Will place him on 1 tablet daily but if he continues to have symptoms they can always call and we can increasing to twice a day. If he tolerates the once daily just fine after month time we can see about decreasing it to every other day. Hopefully will follow-up with GI but if he continues with diarrhea even after stopping the azithromycin he go to be re-evaluated. If he needs a colonoscopy he is doing fairly well from a pulmonary standpoint may be able to proceed with procedures but very cautious because of his risk of worsening disease. Will plan to follow-up in 3 months. If he has any issues prior to that he will call for an earlier assessment. 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 Disc degeneration, lumbar Restless leg syndrome Dyspnea Laryngeal disorder Bradycardia Back pain Chronic respiratory failure Bronchiectasis COPD (chronic obstructive pulmonary disease) Surgical History History of back surgery Hx of cholecystectomy Hx of hernia repair Hx of cataract extraction History of lobectomy of lung Hx of bone marrow donation Hx of neck surgery Hx of knee surgery Hx of hemorrhoidectomy Hx of appendectomy H/O colonoscopy History of cardiac cath Social History Are you a primary career and guidance counselor to a significant other at home: No Do you presently have visiting nurse or other home services: No Patient Tobacco Use Status: Former Tobacco user Advance Directives Date on File: 07/28/21 Review of Systems Const Denies fever(s) and Denies night sweats Eyes Denies change in vision and Denies diplopia ENT Reports Normal hearing present, Denies dizziness and Reports dry mouth Card Denies chest pain, Denies dyspnea and Reports dyspnea on exertion Resp Reports chest congestion, Reports cough, Denies excessive phlegm production, Denies pain with cough, Denies dyspnea, Reports dyspnea on exertion, Denies wheezing and Denies other (On oxygen up to 3 L a minute.) GI Denies abdominal pain, Reports diarrhea and Reports loose stools Musc Reports as per HPI, Reports abnormal gait, Reports back pain, Reports myalgias, Reports atrophy and Reports arthralgias Neuro Reports Normal hearing present, Denies Neuro-related abnormal movements, Reports abnormal gait, Denies dizziness and Denies Sensory deficit (Neuro) Psych Denies no additional complaints Ruel/Lymph Denies easy bleeding Aller/Immun Denies wheezing Physical Exam Vital Signs: Last Vital Signs Pulse 81 05/03/24 15:15 BP 120/52 L 05/03/24 15:15 Pulse Ox 96 05/03/24 15:15 Oxygen Delivery Method Nasal Cannula 05/03/24 15:15 Oxygen Flow Rate 2 03/13/25 15:15 BMI result Body Mass Index 21.5 Const General: comfortable, no acute distress and well groomed HEENT Head: Yes normal to inspection General nose exam: Abnormal nasal septum present other (sore on the left) Neck Neck: Yes supple Chest Chest palpation & inspection: normal inspection of the chest Resp Auscultation: no crackles, no wheezes and diminished lung sounds Cardio Rate: regular rate Rhythm: regular rhythm Heart sounds: S1 normal heart sound present and S2 normal heart sound present General: Yes no CVA tenderness Back/Spine/Pelvis Back: no CVA tenderness Neuro General: moves all extremities, no focal motor deficits and Unable to assess gait Cranial nerves: Yes Normal hearing present Gait exam (Neuro): Unable to assess gait Motor exam (neuro): 5/5 motor strength present throughout and Pronator motor function not present Sensory Exam: No Sensory deficit (Neuro) Extrem General: Yes no clubbing, cyanosis or edema Results Reviewed Results Reviewed: personally reviewed CT chest 2024 and 2023 with bronchomalecia ?JOSE LUIS bronchus dynamic collapse versus obstruction, slight increase airspace disease right base ?aspiration Assessment & Plan Assessment & Plan (1) Chronic respiratory failure: Code(s): J96.10 - Chronic respiratory failure, unspecified whether with hypoxia or hypercapnia Category: Medical Qualifiers: Respiratory failure complication: hypoxia and hypercapnia Qualified Code(s): J96.11 - Chronic respiratory failure with hypoxia; J96.12 - Chronic respiratory failure with hypercapnia (2) COPD (chronic obstructive pulmonary disease): Code(s): J44.9 - Chronic obstructive pulmonary disease, unspecified Category: Medical Qualifiers: COPD type: chronic bronchitis Chronic bronchitis type: mucopurulent Qualified Code(s): J41.1 - Mucopurulent chronic bronchitis (3) Bronchiectasis: Code(s): J47.9 - Bronchiectasis, uncomplicated Category: Medical Qualifiers: Bronchiectasis type: uncomplicated Qualified Code(s): J47.9 - Bronchiectasis, uncomplicated (4) Dyspnea: Code(s): R06.00 - Dyspnea, unspecified Category: Medical Qualifiers: Dyspnea type: shortness of breath Qualified Code(s): R06.02 - Shortness of breath (5) Chronic pain syndrome: Code(s): G89.4 - Chronic pain syndrome Category: Medical (6) Pulmonary nodule: Comment: 3mm Code(s): R91.1 - Solitary pulmonary nodule Category: Medical (7) Clostridioides difficile infection: Code(s): A49.8 - Other bacterial infections of unspecified site Category: Medical Plan Continue Trelegy CPT with nebs and acapella valve continue oxygen supplementation iVAPS and 3 L oxygen, NIV at night repeat overnight oximetry on NIV 3L oxygen stop azithromycin MWF for now start Doxycycline daily follow-up in 4 months Orders: Orders Overnight Pulse Oximetry Today J96.11 - Chronic respiratory failure with hypoxia, J96.12 - Chronic respiratory failure with hypercapnia Medications: New loratadine (Claritin) 10 mg PO DAILY PRN 30 tabs 11RF allergic symptoms 30 days J30.2 - Other seasonal allergic rhinitis, J45.909 - Unspecified asthma, uncomplicated doxycycline monohydrate 100 mg PO DAILY 30 tabs 3RF 30 days Coding Level of Care Code Est Pt Level 5 (24916) Complex EM visit Add On G2211 Diagnoses Chronic respiratory failure with hypoxia and hypercapnia J96.11; J96.12 Respiratory failure complication: hypoxia and hypercapnia Mucopurulent chronic bronchitis J41.1 COPD type: chronic bronchitis Chronic bronchitis type: mucopurulent Bronchiectasis without complication J47.9 Bronchiectasis type: uncomplicated Shortness of breath R06.02 Dyspnea type: shortness of breath Chronic pain syndrome G89.4 Pulmonary nodule R91.1 Clostridioides difficile infection A49.8 Time Spent (min) 60
--- OUTSIDE RECORDS SUMMARY | 2024-05-03 18:50 | XMS_ITS | Clinical Summary ---
Author Organization [facility] Address [address] [place] [address] Care Team Providers Care Manager Simulation Name Role Phone Germain Dennis MD Primary [...] age to complete this topic Care Teams Manager Simulation Relationship Specialty Start Date End Date Germain Dennis MD PCP - General Internal Medicine 09/22/22
--- OUTSIDE RECORDS SUMMARY | 2024-05-03 18:50 | XMS_ITS | Clinical Summary ---
Author Organization [facility] it Address [address] [place] [address] Care Team Providers Care Clearing Tub Worker Name Role Phone Germain Dennis MD Primary Care Provider [phone] Medications traZODone (DESYREL) 100 mg tablet TAKE [...] 3 tablet 1 04/04/19 25 025 Discontinued Surgical History Surgery Date Site/Laterality Comments BACK SURGERY PROCEDURE: HISTORICAL BACK SURGERY CHOLECYSTECTOMY PROCEDURE: HISTORICAL CHOLECYSTECTOMY APPENDECTOMY PROCEDURE: HISTORICAL APPENDECTOMY OTHER SURGICAL HISTORY PROCEDURE: HISTORY OTHER; COMMENT: lung lobectomy BOWEL RESECTION PROCEDURE: HISTORICAL BOWEL RESECTION; COMMENT: small bowel COLONOSCOPY PROCEDURE: HISTORICAL COLONOSCOPY KNEE SURGERY PROCEDURE: HISTORICAL KNEE SURGERY Medical History Medical History Date Comments Anxiety 07/21/2016 DX:Anxiety Bronchiectasis ([facility]) 07/19/2017 DX:Bron chiectasis ([facility]) Chronic back pain 03/16/2018 DX:Chronic anita k pain; COMMENT: S/p surgery Chronic respiratory failure with hypoxia ([facility]) 07/19/2017 DX:Chronic respiratory failu re with hypoxia ([facility]) COPD (chronic obstructive pu lmonary disease) ([facility]) 07/19/2017 DX:COPD (chronic obstructive pulmonary disease) ([facility]) GERD (gastroesophageal reflux disease) 07/20/2016 DX:GERD (gastroesophageal reflux disease) 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[facility]) DX: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[facility]) Osteoporosis 11/14/2017 DX:Osteoporosis; COMMENT: H/o compression fracture [...] Influencers of Health Screening 01/30/2022 COVID-19 Vaccine ( - 2023-2 5 season) 2023 Influenza Vaccine [...] Documents on File Type Date Recorded Patient Label Coder Expl anation Health Care Decision (hx) 07/29/2021 AD [employer] DIRECTIVE Health Care Decision (hx) 07/29/2021 AD MART DIRECTIVE Health Care Decision (hx) 07/29/2021 AD MART DIRECTIVE Health Care Decision (hx) 07/29/2021 AD MART DIRECTIVE Care Teams Clearing Tub Worker Relationship Specialty Start Date End Date Germain Dennis MD PCP - General Internal Medicine 04/04/18
== END 2024-05-03 15:55 | disposition home or self-care (01) ==
LOC: HO.HPS 15:07
PROVIDERS: PCP Internal Medicine; Visit Provider Hospitalist
DX: J96.11 Chronic respiratory failure with hypoxia (principal); J96.12 Chronic respiratory failure with hypercapnia; J41.1 Mucopurulent chronic bronchitis; J47.9 Bronchiectasis, uncomplicated; R06.02 Shortness of breath; G89.4 Chronic pain syndrome; R91.1 Solitary pulmonary nodule; A49.8 Other bacterial infections of unspecified site
CPT/HCPCS: 99215; G2211

== ENCOUNTER → 2024-05-03 15:07 | Outpatient (BNVA) | payer MEDICARE, SELFPAY | PROVIDERS: PCP Internal Medicine; Visit Provider Hospitalist | DX: J96.11 Chronic respiratory failure with hypoxia (principal); J96.12 Chronic respiratory failure with hypercapnia; J41.1 Mucopurulent chronic bronchitis; J47.9 Bronchiectasis, uncomplicated; J30.2 Other seasonal allergic rhinitis; G89.4 Chronic pain syndrome; R91.1 Solitary pulmonary nodule; A49.8 Other bacterial infections of unspecified site; Z99.89 Dependence on other enabling machines and devices; Z99.81 Dependence on supplemental oxygen | CPT/HCPCS: 99212 ==

== ENCOUNTER 2024-08-07 15:19 | Outpatient (AMB) | payer MEDICARE, SELFPAY ==
[2024-08-07 15:26] VITALS: BP 128/50; PULSE 65; O2SAT 95; BMI 21.3
--- NOTE | 2024-08-07 15:26 | A.OFFVIS_ITS ---
Vital Signs 08/07/24 15:26 Height 5 ft 3 in Weight 120 lb 2.431 oz BMI 21.3 BP 128/50 L Blood Pressure Location Lt brachial Position Sitting Pulse 65 Pulse Source Pulse Oximeter Pulse Oximetry (%) 95 Oxygen Delivery Method Nasal Cannula Oxygen Flow Rate 2 Intake Visit Reasons: Pulmonary Nodule/CT Follow Up Allergies No Known Allergies Allergy (Verified 08/07/24 15:31) HPI Comments Details: The patient is a 83 y/o man with a history of COPD with chronic respiratory failure on oxygen. He also uses a BiPAP at night for his respiratory failure due to his COPD. He did have a trilogy noninvasive ventilator for some time but he did not tolerated. In the meantime he also has bronchiectasis with significant mucus production. It has been stable at this point with daily mucus. The mucus is to be green in color. He did have a flutter valve although he does not have 1 right now. We talked about the importance of performing CPT with neb treatments and with flutter valve. He does not want to use any medications so therefore we could try sodium chloride nebulized treatments. He continues to use the oxygen. At this point I would like him to stay on the liquid oxygen. This has been very effective for him. 08/05/2022 the patient is here for a pulmonary follow-up visit. The patient is doing well from a respiratory status. He continues to have productive cough with greenish yellowish phlegm regularly. Typically this getting better in the morning and then worse during the day. He did undergo a trial for his spinal stimulator and this was effective about 70% which is happy about. Afterwards he developed abdominal pain and has had issues with some epigastric discomfort. He was evaluated by primary care and did have blood work which was all reassuring. Still though is tender to the touch. I have get an x-ray to make sure that he does not have anything significant specially since he is going to have surgery scheduled for tomorrow for the spinal stimulator permanent procedure. He continues using noninvasive ventilator at nighttime. Appears to be affecting beneficial and also using the nebulizers twice a day also with good effect. 12/02/2022 the patient is here for a pulmonary follow-up visit. Recently had a cold and he actually did fairly well without any worsening respiratory symptoms. The family was very happy about that. He has been using his respiratory therapy with good effect. His major complaint is very dry mouth with the point that he is tongue sticks to his sides and he has a hard time speaking. Explained to them that this partly due to his age and likely pH difference in his oral mucosa. In addition that it could be medication related. He does take ipratropium nasal spray will have them stop that. The patient also will start the budesonide for now to see if he has any relief. He is also been on Lasix. The patient has a low diastolic pressure 50 and has had low blood pressures before. The patient does not appear to be volume overloaded. Therefore I did request that they hold the Lasix for now and wait him on a daily basis. If he gains a couple lb that he should be start the Lasix but only half dose. And then if he develops any significant lower extremity edema he should just increase the Lasix back to the full dose of 20 mg. but at this point I do believe that he is intravascularly depleted in this can also cause his mouth to be also dry. He is using the noninvasive ventilator at nighttime he does have humidification with it and has been adjusted accordingly. He is still coughing up phlegm. His respiratory exam is reassuring. I did provide him with a sputum cup for sputum culture to make sure that he is not harboring any concerning bacterial pathogens. For now he will continue with current respiratory therapy and will minimize on some of the medications to hopefully help his significant drowsiness. In regards to the back pain he did get the pain stimulator. Is currently being adjusted further to provide him with additional relief. Back in July he did have a chest x-ray demonstrating some minimal changes atelectasis slight opacities and pleural effusion. Therefore the patient will come back at some point get a repeat x-ray as well. 01/20/2023 the patient is here for a pulmonary follow-up visit. He completed the antibiotics both the doxycycline and the Vantin for the multilobar pneumonia including the right upper lobe in the right lower lobe area. He still needing the oxygen although better. While he was in the antibiotics his mucus is fairly clear. Now off the antibiotics he is getting a little yellow she can. The patient has also noticed increasing hypoxia at nighttime. The patient does uses noninvasive ventilator with the oxygen. Will have him get an overnight oximetry to make sure that he is getting adequate oxygenation. Explained to him that this will take at least a couple months to clear specially since he had significant amount of airspace disease. In addition to the looking at the CT scan myself there is a nodular component to the right upper lobe airspace disease. Therefore want a repeat the CT scan in 3 months to make sure there is complete resolution of this process and make sure there is no concomitant malignant process within that. The patient will also provide incentive spirometer so he can work on deep breathing exercises any already has a flutter device to help him with mucus clearance. He will continue with current respirat ory therapy as prescribed. The patient will follow-up in [address] scan. The patient also had blood work. It appears that his left shift has improved and other by our labs are pending. Will follow-up in 3 months time. The patient develops any worsening symptoms he is to call the office for an earlier assessment. 04/28/2023 the patient is here for a pulmonary follow-up visit. The patient overall has been feeling better from a respiratory status. He still has a chronic cough with significant amount of phlegm but he is at baseline. Can easily expectorating. The patient also has been using his respiratory therapy good effect. He is also using the noninvasive ventilator at nighttime for the whole night. The therapy has been affecting beneficial. The patient also had a CT scan of the chest to follow-up with significant pneumonia it appears that he has a near complete resolution of the airspace disease. However, likely to result in some scarring in that area. Also the CT scan demonstrated small subcentimeter pulmonary nodule which appears to be new. Therefore will continue to discuss as far as follow-up. May want to do a CT scan in a year's time his back pain still an issue. He does have the stimulator now. He still needs to be adjusted further. He will continue to work with pain management. 11/01/2023 the patient is here for a pulmonary follow-up visit. Overall he is doing fairly well. He did have bouts of C diff colitis. He was having significant diarrhea. He was treated for. His gis coordinator felt that it was okay for him to continue the azithromycin. As this has been helpful with his bronchiectasis and chronic bronchitis. The patient also has been using his nebulizer and also respiratory medications with good effect. Also continues with his oxygen. He has been using the noninvasive ventilator at nighttime. This has been affecting beneficial. Does use it for more than 4 hours a night. His major issue still the back issue. Hard for him to ambulate. Still getting short of breath with minimal activity. The patient did have an overnight oximetry sometime ago done by [facility]. We never got the results. We did request from [facility] and will let him know once we have them available. But for now he will continue using 3 L of oxygen at nighttime with charlene. His last CT scan of the chest was back in 04/12/2023. His airspace disease had improved although he did have a new pulmonary nodule. Her need to have a follow-up CT scan for that. Will follow-up sometime in March after his CT scan. If he h as any issues prior to that he will call for an earlier assessment. 05/03/2024 the patient is here for a pulmonary follow-up visit. Overall the patient has been doing okay. Although he continues with diarrhea. Will go ahead and stop his azithromycin at this time. Will try him on doxycycline. In addition to that he did have a CT scan of the chest which we personally reviewed. The report was reassuring that everything was stable. Although he appears to have some dynamic airway obstruction in the major airways suggesting some degree of bronchomalacia. Although can not rule out an obstructive process. In addition to that there appears to be little more airspace disease in the right base. This does bring up the possibility of micro aspirations. Also with the bronchomalacia is hard for him to expectorating clear secretions. The patient is also having some pain behind the years bringing up the question of mastoiditis. Nksk-ag-jpynscpy severity. Doxycycline may also help with thi s. Will place him on 1 tablet daily but if he continues to have symptoms they can always call and we can increasing to twice a day. If he tolerates the once daily just fine after month time we can see about decreasing it to every other day. Hopefully will follow-up with GI but if he continues with diarrhea even after stopping the azithromycin he go to be re-evaluated. If he needs a colonoscopy he is doing fairly well from a pulmonary standpoint may be able to proceed with procedures but very cautious because of his risk of worsening disease. Will plan to follow-up in 3 months. If he has any issues prior to that he will call for an earlier assessment. 08/07/2024 the patient is here for a pulmonary follow-up visit. Overall the patient has been doing okay. Does have increasing dyspnea on exertion. [id number] severity. Does use the oxygen with good effect. He continues use his respiratory therapy. His major issues continue diarrhea. He has been followed closely by GI. Does not appear to have anymore C diff but continues to be very debilitated but the diarrhea. He is scheduled to undergo a colonoscopy. At this point as lungs are the use propofol monitor closely his airway he should be okay. In the meantime I did ask him to do additional CPT with a flutter valve to clear his mucus secretions. He continues on the doxycycline which should not affect his GI movements. He also continues uses noninvasive ventilator at nighttime. He is using a 3 L. He will have an overnight study done while on the noninvasive on 3 L to see if he is getting adequate oxygenatio n. The patient follow-up in 4 months. If she has any issues prior to this he will call for an earlier assessment. 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 Disc degeneration, lumbar Restless leg syndrome Dyspnea Laryngeal disorder Bradycardia Back pain Chronic respiratory failure Bronchiectasis COPD (chronic obstructive pulmonary disease) Surgical History History of back surgery Hx of cholecystectomy Hx of hernia repair Hx of cataract extraction History of lobectomy of lung Hx of bone marrow donation Hx of neck surgery Hx of knee surgery Hx of hemorrhoidectomy Hx of appendectomy H/O colonoscopy History of cardiac cath Social History Are you a primary rn medicare to a significant other at home: No Do you presently have visiting nurse or other home services: No Patient Tobacco Use Status: Former Tobacco user Advance Directives Date on File: 07/28/21 Review of Systems Const Denies fever(s) and Denies night sweats Eyes Denies change in vision and Denies diplopia ENT Reports Normal hearing present, Denies dizziness and Reports dry mouth Card Denies chest pain, Denies dyspnea and Reports dyspnea on exertion Resp Reports chest congestion, Reports cough, Denies excessive phlegm production, Denies pain with cough, Denies dyspnea, Reports dyspnea on exertion, Denies wheezing and Denies other (On oxygen up to 3 L a minute.) GI Denies abdominal pain, Reports diarrhea and Reports loose stools Musc Reports as per HPI, Reports abnormal gait, Reports back pain, Reports myalgias, Reports atrophy and Reports arthralgias Neuro Reports Normal hearing present, Denies Neuro-related abnormal movements, Reports abnormal gait, Denies dizziness and Denies Sensory deficit (Neuro) Psych Denies no additional complaints Ruel/Lymph Denies easy bleeding Aller/Immun Denies wheezing Physical Exam Vital Signs: Last Vital Signs Pulse 65 08/07/24 15:26 BP 128/50 L 08/07/24 15:26 Pulse Ox 95 08/07/24 15:26 Oxygen Delivery Method Nasal Cannula 08/07/24 15:26 Oxygen Flow Rate 2 08/07/24 15:26 BMI result Body Mass Index 21.3 Const General: comfortable, no acute distress and well groomed HEENT Head: Yes normal to inspection General nose exam: Abnormal nasal septum present other (sore on the left) Neck Neck: Yes supple Chest Chest palpation & inspection: normal inspection of the chest Resp Auscultation: no crackles, no wheezes and diminished lung sounds Cardio Rate: regular rate Rhythm: regular rhythm Heart sounds: S1 normal heart sound present and S2 normal heart sound present General: Yes no CVA tenderness Back/Spine/Pelvis Back: no CVA tenderness Neuro General: moves all extremities, no focal motor deficits and Unable to assess gait Cranial nerves: Yes Normal hearing present Gait exam (Neuro): Unable to assess gait Motor exam (neuro): 5/5 motor strength present throughout and Pronator motor function not present Sensory Exam: No Sensory deficit (Neuro) Extrem General: Yes no clubbing, cyanosis or edema Assessment & Plan Assessment & Plan (1) Chronic respiratory failure: Code(s): J96.10 - Chronic respiratory failure, unspecified whether with hypoxia or hypercapnia Category: Medical Qualifiers: Respiratory failure complication: hypoxia and hypercapnia Qualified Code(s): J96.11 - Chronic respiratory failure with hypoxia; J96.12 - Chronic respiratory failure with hypercapnia (2) COPD (chronic obstructive pulmonary disease): Code(s): J44.9 - Chronic obstructive pulmonary disease, unspecified Category: Medical Qualifiers: COPD type: chronic bronchitis Chronic bronchitis type: mucopurulent Qualified Code(s): J41.1 - Mucopurulent chronic bronchitis (3) Bronchiectasis: Code(s): J47.9 - Bronchiectasis, uncomplicated Category: Medical Qualifiers: Bronchiectasis type: uncomplicated Qualified Code(s): J47.9 - Bronchiectasis, uncomplicated (4) Dyspnea: Code(s): R06.00 - Dyspnea, unspecified Category: Medical Qualifiers: Dyspnea type: shortness of breath Qualified Code(s): R06.02 - Shortness of breath (5) Chronic pain syndrome: Code(s): G89.4 - Chronic pain syndrome Category: Medical (6) Pulmonary nodule: Comment: 3mm Code(s): R91.1 - Solitary pulmonary nodule Category: Medical (7) Clostridioides difficile infection: Code(s): A49.8 - Other bacterial infections of unspecified site Category: Medical Plan Continue Trelegy CPT with nebs and acapella valve continue oxygen supplementation iVAPS and 3 L oxygen, NIV at night repeat overnight oximetry on NIV 3L oxygen continue Doxycycline daily Proceed with colonoscopy at this time CPT wit acapella device follow-up in 3-4 months Coding Level of Care Code Est Pt Level 4 (60840) Complex EM visit Add On G2211 Diagnoses Chronic respiratory failure with hypoxia and hypercapnia J96.11; J96.12 Respiratory failure complication: hypoxia and hypercapnia Mucopurulent chronic bronchitis J41.1 COPD type: chronic bronchitis Chronic bronchitis type: mucopurulent Bronchiectasis without complication J47.9 Bronchiectasis type: uncomplicated Shortness of breath R06.02 Dyspnea type: shortness of breath Chronic pain syndrome G89.4 Pulmonary nodule R91.1 Clostridioides difficile infection A49.8 Time Spent (min) 20
--- OUTSIDE RECORDS SUMMARY | 2024-08-07 17:50 | XMS_ITS | Encounter Summary ---
Author Organization [facility] Address [address] [place] [address] Care Team Providers Care Director Of Pupil Personnel Program Name Role Phone Germain Dennis MD Primary Care Provider [phone] Encounter Details Date Type Department Care Team (Late st Contact Info) Description 07/20/2024 Telephone [facility] Hematology Oncology [address] [place] [phone] Bill Michelle MA Social History Tobacco Use Types Packs/Day Years Used Date Smoking Tobacco: Former Smokeless Tobacco: Never Alcohol Use Standard Drinks/Week Comments Yes 0 (1 standard drink = 0.6 oz pur e alcohol) Sex and Gender Information Value Date Recorded Sex Assigned at Not on file Legal Sex Male 3:22 PM EST Gender Identity Not on file Sexual Orientation Not on file documented as of this encounter Progress Notes * Bill Michelle MA - 07/20/2024 1:18 PM EDT LVM to give the office a call back to schedule appointment documented in this encounter Plan of Treatment Upcoming Encounters Date Type Department Care Team (Late st Contact Info) Description 08/13/2024 12:45 PM EDT Hospital Encounter [facility] Endoscopy [address] [place] [phone] Favio Mann MD [address] [address] 08/14/2024 2:45 PM EDT Office Visit [facility] Hematology Oncology [address] [place] [address] Scotty Borrego MD [address] [place] [address] documented as of this encounter Visit Diagnoses Not on filedocumented in this encounter Care Teams Director Of Pupil Personnel Program Relationship Specialty Start Date End Date Germain Dennis MD [address] [address] PCP - General Internal Medicine 04/04/18 documented as of this encounter
== END 2024-08-07 15:57 | disposition home or self-care (01) ==
LOC: HO.HPS 15:20
PROVIDERS: PCP Internal Medicine; Visit Provider Hospitalist
DX: J96.11 Chronic respiratory failure with hypoxia (principal); J96.12 Chronic respiratory failure with hypercapnia; J41.1 Mucopurulent chronic bronchitis; J47.9 Bronchiectasis, uncomplicated; R06.02 Shortness of breath; G89.4 Chronic pain syndrome; R91.1 Solitary pulmonary nodule; A49.8 Other bacterial infections of unspecified site
CPT/HCPCS: 99214; G2211

== ENCOUNTER → 2024-08-07 15:19 | Outpatient (BNVA) | payer MEDICARE, SELFPAY | PROVIDERS: PCP Internal Medicine; Visit Provider Hospitalist | DX: J96.11 Chronic respiratory failure with hypoxia (principal); J96.12 Chronic respiratory failure with hypercapnia; J45.909 Unspecified asthma, uncomplicated; J47.9 Bronchiectasis, uncomplicated; G89.4 Chronic pain syndrome; R91.1 Solitary pulmonary nodule; A49.8 Other bacterial infections of unspecified site | CPT/HCPCS: 99212 ==

== ENCOUNTER 2024-12-10 15:37 | Outpatient (AMB) | payer MEDICARE, SELFPAY ==
[2024-12-10 15:41] VITALS: BP 120/56; PULSE 62; O2SAT 96; BMI 20.9
--- NOTE | 2024-12-10 15:41 | A.OFFVIS_ITS ---
Vital Signs 12/10/24 15:41 Height 5 ft 3 in Weight 117 lb 15.157 oz BMI 20.9 BP 120/56 L Blood Pressure Location Lt brachial Position Sitting Pulse 62 Pulse Source Pulse Oximeter Pulse Oximetry (%) 96 Oxygen Delivery Method Nasal Cannula Oxygen Flow Rate 2 Intake Visit Reasons: Pulmonary Nodule Accompanied by: Daughter Allergies No Known Allergies Allergy (Verified 12/10/24 15:45) HPI Comments Details: The patient is a 83 y/o man with a history of COPD with chronic respiratory failure on oxygen. He also uses a BiPAP at night for his respiratory failure due to his COPD. He did have a trilogy noninvasive ventilator for some time but he did not tolerated. In the meantime he also has bronchiectasis with significant mucus production. It has been stable at this point with daily mucus. The mucus is to be green in color. He did have a flutter valve although he does not have 1 right now. We talked about the importance of performing CPT with neb treatments and with flutter valve. He does not want to use any medications so therefore we could try sodium chloride nebulized treatments. He continues to use the oxygen. At this point I would like him to stay on the liquid oxygen. This has been very effective for him. 08/05/2022 the patient is here for a pulmonary follow-up visit. The patient is doing well from a respiratory status. He continues to have productive cough with greenish yellowish phlegm regularly. Typically this getting better in the morning and then worse during the day. He did undergo a trial for his spinal stimulator and this was effective about 70% which is happy about. Afterwards he developed abdominal pain and has had issues with some epigastric discomfort. He was evaluated by primary care and did have blood work which was all reassuring. Still though is tender to the touch. I have get an x-ray to make sure that he does not have anything significant specially since he is going to have surgery scheduled for tomorrow for the spinal stimulator permanent procedure. He continues using noninvasive ventilator at nighttime. Appears to be affecting beneficial and also using the nebulizers twice a day also with good effect. 12/02/2022 the patient is here for a pulmonary follow-up visit. Recently had a cold and he actually did fairly well without any worsening respiratory symptoms. The family was very happy about that. He has been using his respiratory therapy with good effect. His major complaint is very dry mouth with the point that he is tongue sticks to his sides and he has a hard time speaking. Explained to them that this partly due to his age and likely pH difference in his oral mucosa. In addition that it could be medication related. He does take ipratropium nasal spray will have them stop that. The patient also will start the budesonide for now to see if he has any relief. He is also been on Lasix. The patient has a low diastolic pressure 50 and has had low blood pressures before. The patient does not appear to be volume overloaded. Therefore I did request that they hold the Lasix for now and wait him on a daily basis. If he gains a couple lb that he should be start the Lasix but only half dose. And then if he develops any significant lower extremity edema he should just increase the Lasix back to the full dose of 20 mg. but at this point I do believe that he is intravascularly depleted in this can also cause his mouth to be also dry. He is using the noninvasive ventilator at nighttime he does have humidification with it and has been adjusted accordingly. He is still coughing up phlegm. His respiratory exam is reassuring. I did provide him with a sputum cup for sputum culture to make sure that he is not harboring any concerning bacterial pathogens. For now he will continue with current respiratory therapy and will minimize on some of the medications to hopefully help his significant drowsiness. In regards to the back pain he did get the pain stimulator. Is currently being adjusted further to provide him with additional relief. Back in July he did have a chest x-ray demonstrating some minimal changes atelectasis slight opacities and pleural effusion. Therefore the patient will come back at some point get a repeat x-ray as well. 01/20/2023 the patient is here for a pulmonary follow-up visit. He completed the antibiotics both the doxycycline and the Vantin for the multilobar pneumonia including the right upper lobe in the right lower lobe area. He still needing the oxygen although better. While he was in the antibiotics his mucus is fairly clear. Now off the antibiotics he is getting a little yellow she can. The patient has also noticed increasing hypoxia at nighttime. The patient does uses noninvasive ventilator with the oxygen. Will have him get an overnight oximetry to make sure that he is getting adequate oxygenation. Explained to him that this will take at least a couple months to clear specially since he had significant amount of airspace disease. In addition to the looking at the CT scan myself there is a nodular component to the right upper lobe airspace disease. Therefore want a repeat the CT scan in 3 months to make sure there is complete resolution of this process and make sure there is no concomitant malignant process within that. The patient will also provide incentive spirometer so he can work on deep breathing exercises any already has a flutter device to help him with mucus clearance. He will continue with current respiratory therapy as prescribed. The patient will follow-up in [address] scan. The patient also had blood work. It appears that his left shift has improved and other by our labs are pending. Will follow-up in 3 months time. The patient develops any worsening symptoms he is to call the office for an earlier assessment. 04/28/2023 the patient is here for a pulmonary follow-up visit. The patient overall has been feeling better from a respiratory status. He still has a chronic cough with significant amount of phlegm but he is at baseline. Can easily expectorating. The patient also has been using his respiratory therapy good effect. He is also using the noninvasive ventilator at nighttime for the whole night. The therapy has been affecting beneficial. The patient also had a CT scan of the chest to follow-up with significant pneumonia it appears that he has a near complete resolution of the airspace disease. However, likely to r esult in some scarring in that area. Also the CT scan demonstrated small subcentimeter pulmonary nodule which appears to be new. Therefore will continue to discuss as far as follow-up. May want to do a CT scan in a year's time his back pain still an issue. He does have the stimulator now. He still needs to be adjusted further. He will continue to work with pain management. 11/01/2023 the patient is here for a pulmonary follow-up visit. Overall he is doing fairly well. He did have bouts of C diff colitis. He was having significant diarrhea. He was treated for. His marine radio installer and servicer felt that it was okay for him to continue the azithromycin. As this has been helpful with his bronchiectasis and chronic bronchitis. The patient also has been using his nebulizer and also respiratory medications with good effect. Also continues with his oxygen. He has been using the noninvasive ventilator at nighttime. This has been affecting beneficial. Does use it for more than 4 hours a night. His major issue still the back issue. Hard for him to ambulate. Still getting short of breath with minimal activity. The patient did have an overnight oximetry sometime ago done by José Miguel. We never got the results. We did request from [facility] and will let him know once we have them available. But for now he will continue using 3 L of oxygen at nighttime with charlene. His last CT scan of the chest was back in 04/12/2023. His airspace disease had improved although he did have a new pulmonary nodule. Her need to have a follow-up CT scan for that. Will follow-up sometime in March after his CT scan. If he has any issues prior to that he will call for an earlier assessment. 05/03/2024 the patient is here for a pulmonary follow-up visit. Overall the patient has been doing okay. Although he continues with diarrhea. Will go ahead and stop his azithromycin at this time. Will try him on doxycycline. In addition to that he did have a CT scan of the chest which we personally reviewed. The report was reassuring that everything was stable. Although he appears to have some dynamic airway obstruction in the major airways suggesting some degree of bronchomalacia. Although can not rule out an obstructive process. In addition to that there appears to be little more airspace disease in the right base. This does bring up the possibility of micro aspirations. Al so with the bronchomalacia is hard for him to expectorating clear secretions. The patient is also having some pain behind the years bringing up the question of mastoiditis. Geap-xu-iwrmptyq severity. Doxycycline may also help with this. Will place him on 1 tablet daily but if he continues to have symptoms they can always call and we can increasing to twice a day. If he tolerates the once daily just fine after month time we can see about decreasing it to every other day. Hopefully will follow-up with GI but if he continues with diarrhea even after stopping the azithromycin he go to be re-evaluated. If he needs a colonoscopy he is doing fairly well from a pulmonary standpoint may be able to proceed with procedures but very cautious because of his risk of worsening disease. Will plan to follow-up in 3 months. If he has any issues prior to that he will call for an earlier assessment. 08/07/2024 the patient is here for a pulmonary follow-up visit. Overall the patient has been doing okay. Does have increasing dyspnea on exertion. Szye-as-ysqnxomy severity. Does use the oxygen with good effect. He continues use his respiratory therapy. His major issues continue diarrhea. He has been followed closely by GI. Does not appear to have anymore C diff but continues to be very debilitated but the diarrhea. He is scheduled to undergo a colonoscopy. At this point as lungs are the use propofol monitor closely his airway he should be okay. In the meantime I did ask him to do additional CPT with a flutter valve to clear his mucus secretions. He continues on the doxycycline which should not affect his GI movements. He also continues uses noninvasive ventilator at nighttime. He is using a 3 L. He will have an overnight study done while on the noninvasive on 3 L to see if he is getting adequate oxygenation. The patient follow-up in 4 months. If she has any issues prior to this he will call for an earlier assessment. 12/10/2024 the patient is here for pulmonary follow-up visit. Overall he is doing okay although he continues to have issues with weight loss. He has doing better from the diarrhea standpoint. He did undergo the colonoscopy which is reassuring. The patient has been continue his respiratory therapy with good effect. He does get winded he has look into getting a scooter at this time because he just get more short of breath and fatigue. As far as the noninvasive ventilator he does use it with very good effect. Although he fights the mask the whole night. I did provide him with a an F 40 mask available here for he can try and see if this is a better fit for him. If it is he will let José Miguel no in order to make sure that he gets the proper mask that he can continue using. If he can not tolerate the F 40 mask then he can talk to José Miguel about trying a different option. His last CT scan was back in April 2024 demonstrating pulmonary nodules. Will plan to have him come back in April 2025 after his CAT scan. If he has any issues prior to this he will call for an earlier assessment. 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 Disc degeneration, lumbar Restless leg syndrome Dyspnea Laryngeal disorder Bradycardia Back pain Chronic respiratory failure Bronchiectasis COPD (chronic obstructive pulmonary disease) Surgical History History of back surgery Hx of cholecystectomy Hx of hernia repair Hx of cataract extraction History of lobectomy of lung Hx of bone marrow donation Hx of neck surgery Hx of knee surgery Hx of hemorrhoidectomy Hx of appendectomy H/O colonoscopy History of cardiac cath Social History Are you a primary day care assistant to a significant other at home: No Do you presently have visiting nurse or other home services: No Patient Tobacco Use Status: Former Tobacco user Advance Directives Date on File: 07/28/21 Review of Systems Const Reports fatigue, Denies fever(s), Denies night sweats, Reports poor appetite and Reports weight loss Eyes Denies change in vision and Denies diplopia ENT Reports Normal hearing present, Denies dizziness and Reports dry mouth Card Denies chest pain, Denies dyspnea and Reports dyspnea on exertion Resp Reports chest congestion, Reports cough, Denies excessive phlegm production, Denies pain with cough, Denies dyspnea, Reports dyspnea on exertion, Denies wheezing and Denies other (On oxygen up to 3 L a minute.) GI Denies abdominal pain, Reports diarrhea and Reports loose stools Musc Reports as per HPI, Reports abnormal gait, Reports back pain, Reports myalgias, Reports atrophy and Reports arthralgias Neuro Reports Normal hearing present, Denies Neuro-related abnormal movements, Reports abnormal gait, Denies dizziness and Denies Sensory deficit (Neuro) Psych Denies no additional complaints Endo Reports fatigue Ruel/Lymph Denies easy bleeding Aller/Immun Denies wheezing Physical Exam Vital Signs: Last Vital Signs Pulse 62 12/10/24 15:41 BP 120/56 L 12/10/24 15:41 Pulse Ox 96 12/10/24 15:41 Oxygen Delivery Method Nasal Cannula 12/10/24 15:41 Oxygen Flow Rate 2 12/10/24 15:41 BMI result Body Mass Index 20.9 Const General: comfortable, no acute distress and well groomed HEENT Head: Yes normal to inspection General nose exam: Abnormal nasal septum present other (sore on the left) Neck Neck: Yes supple Chest Chest palpation & inspection: normal inspection of the chest Resp Auscultation: no crackles, no wheezes and diminished lung sounds Cardio Rate: regular rate Rhythm: regular rhythm Heart sounds: S1 normal heart sound present and S2 normal heart sound present General: Yes no CVA tenderness Back/Spine/Pelvis Back: no CVA tenderness Neuro General: moves all extremities, no focal motor deficits and Unable to assess gait Cranial nerves: Yes Normal hearing present Gait exam (Neuro): Unable to assess gait Motor exam (neuro): 5/5 motor strength present throughout and Pronator motor function not present Sensory Exam: No Sensory deficit (Neuro) Extrem General: Yes no clubbing, cyanosis or edema Assessment & Plan Assessment & Plan (1) Chronic respiratory failure: Code(s): J96.10 - Chronic respiratory failure, unspecified whether with hypoxia or hypercapnia Category: Medical Qualifiers: Respiratory failure complication: hypoxia and hypercapnia Qualified Code(s): J96.11 - Chronic respiratory failure with hypoxia; J96.12 - Chronic respiratory failure with hypercapnia (2) COPD (chronic obstructive pulmonary disease): Code(s): J44.9 - Chronic obstructive pulmonary disease, unspecified Category: Medical Qualifiers: COPD type: chronic bronchitis Chronic bronchitis type: mucopurulent Qualified Code(s): J41.1 - Mucopurulent chronic bronchitis (3) Bronchiectasis: Code(s): J47.9 - Bronchiectasis, uncomplicated Category: Medical Qualifiers: Bronchiectasis type: uncomplicated Qualified Code(s): J47.9 - Bronchiectasis, uncomplicated (4) Dyspnea: Code(s): R06.00 - Dyspnea, unspecified Category: Medical Qualifiers: Dyspnea type: shortness of breath Qualified Code(s): R06.02 - Shortness of breath (5) Chronic pain syndrome: Code(s): G89.4 - Chronic pain syndrome Category: Medical (6) Pulmonary nodule: Comment: 3mm Code(s): R91.1 - Solitary pulmonary nodule Category: Medical Plan Continue Trelegy CPT with nebs and acapella valve continue oxygen supplementation 3.5L iVAPS and 3 L oxygen, NIV at night. Trial F40 medium mask repeat overnight oximetry on NIV 3L oxygen continue Doxycycline daily CPT wit acapella device CT chest 04/2025 follow-up in April 2025 Orders: Orders CT chest wo IV con 04/15/25 R91.1 - Solitary pulmonary nodule Coding Level of Care Code Est Pt Level 5 (69013) Complex EM visit Add On G2211 Diagnoses Chronic respiratory failure with hypoxia and hypercapnia J96.11; J96.12 Respiratory failure complication: hypoxia and hypercapnia Mucopurulent chronic bronchitis J41.1 COPD type: chronic bronchitis Chronic bronchitis type: mucopurulent Bronchiectasis without complication J47.9 Bronchiectasis type: uncomplicated Shortness of breath R06.02 Dyspnea type: shortness of breath Chronic pain syndrome G89.4 Pulmonary nodule R91.1 Time Spent (min) 55
--- OUTSIDE RECORDS SUMMARY | 2024-12-10 19:51 | XMS_ITS | Clinical Summary ---
Author Organization [facility] Address [address] [place] [address] Phone Care Team Providers Care Barrel Lathe Operator Outside Name Role Phone Germain Dennis MD Primary Care Provider [phone] Allergies No known active allergies Active Problems Problem Noted Date Diagnosed Date Chronic obstructive pulmonary disease 06/09/2011 Overview (04/13/2014): Chronic obstructive lung disease Hypoxia 06/09/2011 Overview (04/13/2014): Hypoxia Uncoded H/O Ex-smoker 06/09/2011 Overview (04/13/2014): H/O Ex-smoker Sleep apnea 06/09/2011 Overview (04/13/2014): Sleep apnea Hemoptysis 06/09/2011 Overview (04/13/2014): Hemoptysis Hernia of abdominal cavity 06/09/2011 Overview (04/13/2014): Hernia of abdominal cavity History of appendectomy 06/09/2011 Overview (04/13/2014): Appendectomy Depressive disorder 06/09/2011 Overview (04/13/2014): Depressive disorder Low back pain 06/09/2011 Overview (04/13/2014): Low back pain Lumbar spondylosis 06/09/2011 Overview (04/13/2014): Lumbar spondylosis Restless legs syndrome 06/09/2011 Overview (04/13/2014): Restless legs Migraine 06/09/2011 Overview (04/13/2014): Migraine Irritable bowel syndrome 06/09/2011 Overview (04/13/2014): Irritable bowel syndrome Alcohol abuse 06/09/2011 Overview (04/13/2014): Alcohol abuse Social History Tobacco Use Types Packs/Day Years Used Date Smoking Tobacco: Never Assessed Education Answer Date Recorded Are you interested in more education? Not on lucien e 06/27/2022 Are you concerned about learning? Not on file 06/27/2022 No 06/27/2022 No 06/27/2022 Digital Access Answer Date Recorded No 07/13/2022 No 07/13/2022 No 07/13/2022 Reliable internet access at home? Not on file 07/13/2022 Device with a working camera? Not on file Sex and Gender Information Value Date Recorded Sex Assigned at Not on file Legal Sex Male 6:49 PM EST Gender Identity Not on file Sexual Orientation Not on file Last Filed Vital Signs Vital Sign Reading Time Taken Comments Blood Pressure 154/87 06/09/2011 11:04 AM EDT Pulse 81 06/09/2011 11:04 AM EDT Temperature 36.6 C (97.8 F) 06/09/2011 11:04 AM EDT Respiratory Rate - - Oxygen Saturation - - Inhaled Oxygen Concentration - - Weight 66.2 kg (146 lb) 06/09/2011 11:04 AM EDT Height 154.9 cm (5' 1 ) 06/09/2011 11:04 AM EDT Body Mass Index 27.59 06/09/2011 11:04 AM EDT Plan of Treatment Health Maintenance Due Date Last Done Comments Adult Td,Tdap Booster 1940 DEPRESSION SCREENING 1952 PNEUMOCOCCAL VACCINES (50+ years) (1 of 2 - PCV) 12/21/1959 ZOSTER VACCINES (1 of 2) 1990 RSV VACCINE (1 - 1-dose 75+ series) 12/21/2015 INFLUENZA VACCINE (#1) 2024 0, 12/08/2017, 12/23/2016 COVID-19 VACCINE (2024-2 6 season) 2024 HEPATITIS A VACCINES Aged Out No long er eligible based on patient's age to complete this topic HIB VACCINES Aged Out No longer eligi ble based on patient's age to complete this topic MENINGOCOCCAL VACCINES (ACWY) Aged Out No longer eligible based on patient's age to complete this topic MENINGOCOCCAL VACCINES (B) Aged Out N o longer eligible based on patient's age to complete this topic Medical Devices Not on file Insurance [employer] RE[employer] Care Teams Barrel Lathe Operator Outside Relationship Specialty Start Date End Date Germain Dennis MD [address] [facility] [address] [place] [address] PCP - General Internal Medicine 04/17/18 Additional Source Comments The information contained in this document represents components of the legal health record. It is not the complete legal health record.[facility]
--- OUTSIDE RECORDS SUMMARY | 2024-12-10 19:51 | XMS_ITS ---
Author Name [facility] Organization Unknown Care Team Organization Name Specialty Phone Email Start Date End Da te [facility] 10/10/2024 [facility] SANGITA COLES Primary Care 12/29/2021 10/10/19 24
--- OUTSIDE RECORDS SUMMARY | 2024-12-10 19:51 | XMS_ITS | Clinical Summary ---
Author Organization [facility] Address [address] [place] [address] Care Team Providers Care Mail Carrier Name Role Phone Germain Dennis MD Primary [...] 61 05/13/2023 3:55 PM EDT Temperature 36.9 C (98.4 F) 05/13/2023 3:55 PM EDT Respiratory Rate - - Oxygen [...] 1-dose 75+ series) 12/21/2015 Influenza Vaccine (#1) 2024 12/08/2017 Hepatitis B Vaccines Aged Out No long er eligible based on patient's age to complete this topic RSV Ped < 20 months Aged Out No longe r eligible based on patient's age to complete this topic Care Teams Mail Carrier Relationship Specialty Start Date End Date Germain Dennis MD PCP - General Internal Medicine 09/22/22
--- OUTSIDE RECORDS SUMMARY | 2024-12-10 19:51 | XMS_ITS | Clinical Summary ---
Author Organization [facility] Address [address] [place] [address] Care Team Providers Care Agricultural Real Estate Agent Name Role Phone Yoly Benton DMD Primary Care Provider [phone] Source Comments PLEASE NOTE, if this patient is a minor, it may be UNLAWFUL to discuss sensitive information that is contained in these records (such as FAMILY PLANNING, MENTAL HEALTH or SUBSTANCE ABUSE) with the minor patient's parent or other person without the patient's specific authorization.[facility] Allergies No known active allergies Medications clotrimazole (MYCELEX) 10 mg trocheIndicatio ns:Denture stomatitis Take 1 Tablet by mouth 5 (five) times daily 60 Laura 1 06/06/2020 Active acetaminophen (TYLENOL) 500 mg tabletIndicatio ns:Nonrestorabl e carious tooth Take 1 Tablet by mouth every 6 (six) hours as needed for pain. 20 Tablet 09/18/2024 Active amoxicillin (AMOXIL) 500 mg capsuleIndicati ons:Nonrestorab le carious tooth Take 1 Capsule by mouth 3 (three) times daily. 21 Capsule 09/18/2024 Active Active Problems No known active problems Encounters Date Type Department Care Team Description 10/25/2024 4:20 PM EDT Office Visit [facility] [address] [place] [id number] Teofilo Wolf RHD 09/18/2024 3:40 PM EDT Office Visit [facility] [address] [place] [phone] Chau Mendoza DDS from Last 3 Months Social History Tobacco Use Types Packs/Day Years Used Date Smoking Tobacco: Former Cigarettes Tobacco Cessation:Counseling Given: Not Answered Social Connections Answer Date Recorded Connectedness 0 11/10/2023 Financial Resource Strain Answer Date R ecorded Financial Resource Strain 0 2019 Stress Answer Date Recorded Stress 0 01/28/2020 Physical Activity Answer Date Recorded Physical Activity 0 01/28/2020 Food Insecurity Answer Date Recorded Food 0 11/17/2023 Transportation Needs Answer Date Record ed Transportation 0 01/28/2020 Housing Stability Answer Date Recorded Housing 0 01/28/2020 Safety and Environment Answer Date Otf rded Safety 0 01/28/2020 Utilities Answer Date Recorded Utilities 0 01/28/2020 Employment Answer Date Recorded Stress 0 11/10/2023 Sex and Gender Information Value Date Recorded Sex Assigned at Not on file Legal Sex Male 11:55 AM PDT Gender Identity Not on file Sexual Orientation Not on file Last Filed Vital Signs Vital Sign Reading Time Taken Comments Blood Pressure 145/77 10/25/2024 5:39 PM EDT Pulse 65 10/25/2024 5:39 PM EDT Temperature - - Respiratory Rate - - Oxygen Saturation - - Inhaled Oxygen Concentration - - Weight - - Height - - Body Mass Index - - Plan of Treatment Upcoming Encounters Date Type Department Care Team (Late st Contact Info) Description 04/30/2025 4:20 PM EDT Office Visit [facility] [address] [place] [address] Teofilo Wolf, D [address] [place] [address] Health Maintenance Due Date Last Done Comments Advanced Care Planning 01/19/1941 Imm-DTaP/Tdap/Td (1 - Tdap) 12/21/1959 Imm-Pneumococcal 50+ (1 of 1 - PCV) 1990 Imm-Zoster, Recombinant (1 of 2) 1990 Falls Prevention 2005 Imm-RSV (adult) (1 - 1-dose 75+ series) 12/21/2015 Alcohol and Drug Screen 02/22/2024 Depression Annual Screen 02/22/2024 [id number] (1 - 2024- season) 2024 Imm-Influenza (#1) 2024 Dental Perio Charting 04/18/2025 04/16/2024 , 10/05/2023, 04/04/2023 Tobacco Screening 06/28/2025 06/28/2024 Hypertension Screening (#1) 10/25/2025 Dental BW 10/27/2025 10/25/2024, 03/25, 10/05/2023, Additional history exists Dental Examination 10/27/2025 10/25/2024, 0 04/16/2024, 10/05/2023, Additional history exists Dental Prophy 10/27/2025 10/25/2024, 03/25, 10/05/2023, Additional history exists Dental FMX/Pano 11/13/2026 11/11/2021, 11/11/2021 Procedures Procedure Name Priority Date/Time Associated Diagnosis Comments PERIODIC ORAL EVALUATION ESTABLISHED PATIENT Routine 10/25/2024 4:20 PM EDT Encounter for dental examination DENTAL CASE MANAGEMENT - MOTIVATIONAL INTV Routine 10/25/2024 4:20 PM EDT Encounter for dental examination PROPHYLAXIS - ADULT Routine 10/25/2024 4 :20 PM EDT Encounter for dental examination BITEWINGS - FOUR RADIOGRAPHIC IMAGES Routine 10/25/2024 4:20 PM EDT Encounter for dental examination CARIES RISK ASSESSMENT & DOC FINDING HIGH RISK Routine 10/25/2024 4:20 PM EDT Encounter for dental examination NUTRITIONAL COUNSELING CONTROL OF DENTAL DISEASE Routine 10/25/2024 4:20 PM EDT Encounter for dental examination ORAL HYGIENE INSTRUCTIONS Routine 10/25/2024 4:20 PM EDT Encounter for dental examination ORAL CANCER SCREENING Routine 10/25/2024 4:20 PM EDT Encounter for dental examination CASE PRESENTATION SUBS DTL & EXTENSIVE TX PLN Routine 10/25/2024 4:20 PM EDT Encounter for dental examination 32 EXTRACTION ERU TOOTH RQR REMV BONE &/SECTN TOOTH Routine 09/18/2024 3:40 PM EDT Dental caries on smooth surface penetrating into dentin Nonrestorable carious tooth CASE PRESENTATION SUBS DTL & EXTENSIVE TX PLN Routine 09/18/2024 3:40 PM EDT Nonrestorable carious tooth COMP PERIODONTAL EVALUATION - NEW/EST PATIENT Routine 04/16/2024 4:20 PM EST Encounter for dental examination INTRAORAL - COMP SERIES OF RADIOGRAPHIC IMAGES Routine 11/11/2021 3:40 PM EDT Gingivitis, chronic, plaque induced from Last 3 Months or Most Recently Relevant to Health Maintenance Insurance [employer] [address] [place] [address] HEALTH INSURANCE Care Teams Agricultural Real Estate Agent Relationship Specialty Start Date End Date Yoly Benton DMD [address] [place] [address] PCP - General 05/02/20
--- OUTSIDE RECORDS SUMMARY | 2024-12-10 19:51 | XMS_ITS ---
Author Organization [facility] Address [address] [place] [phone] Phone Care Team Providers Care Mineral Engineer Name Role Phone Germain Dennis MD Primary Care Provider [phone] Transplant Episode Lung Candidate [facility] ([place], [place]) - [facility] Evaluation began on 06/09/2011 Marked as Ineligible on 09/25/2014 Lung CoordinatorElva Gomez RN Fax: N/A Email: [email or web address] Care Team Name Role Phone Fax Email Elva Gomez RN Lung Coordinator [phone] N/A [email or web address] Events Pre-Transplant Referred: 05/13/2011 Evaluation began: 06/09/2011
== END 2024-12-10 16:16 | disposition home or self-care (01) ==
LOC: HO.HPS 15:38
PROVIDERS: PCP Internal Medicine; Visit Provider Hospitalist
DX: J96.11 Chronic respiratory failure with hypoxia (principal); J96.12 Chronic respiratory failure with hypercapnia; J41.1 Mucopurulent chronic bronchitis; J47.9 Bronchiectasis, uncomplicated; R06.02 Shortness of breath; G89.4 Chronic pain syndrome; R91.1 Solitary pulmonary nodule
CPT/HCPCS: 99215; G2211

== ENCOUNTER → 2024-12-10 15:37 | Outpatient (BNVA) | payer MEDICARE, SELFPAY | PROVIDERS: PCP Internal Medicine; Visit Provider Hospitalist | DX: J96.11 Chronic respiratory failure with hypoxia (principal); J96.12 Chronic respiratory failure with hypercapnia; J41.1 Mucopurulent chronic bronchitis; J47.9 Bronchiectasis, uncomplicated; G89.4 Chronic pain syndrome; R91.1 Solitary pulmonary nodule; Z99.81 Dependence on supplemental oxygen | CPT/HCPCS: 99212 ==